=== PATIENT | female | born 1960 | race Caucasian/White ===

== ENCOUNTER 2016-10-30 17:48 | Emergency (ER) | payer OTHER, SELFPAY ==
[~2016-10-30 17:48] MED LIST: Sodium Chloride 0.9% 100 ML BAG ONE
--- NOTE | 2016-10-30 18:56 | RAD ---
CHEST ONE VIEW 10/30/16 HISTORY: Dyspnea. COMPARISON: Chest one view 11/24/15. FINDINGS: The lungs are clear. No pneumothorax or effusion. The lungs are hyperinflated. The cardiac silhouett e and mediastinal contours are normal. IMPRESSION: Lung hyperinflation suggestive of obstructive pulmonary disease. POS: [facility]
[2016-10-30] MEDS ORDERED: Phenergan/Codeine 10-6.25mg/5ml UDCUP ONE (19:05)
[2016-10-30] MEDS ORDERED: cefTRIAXone\\ROCEPHIN 1 GM VIAL ONE (19:05)
[2016-10-30] MEDS ORDERED: Ondansetron HCl/PF 4 MG/2 ML Vial ONE (19:07)
[2016-10-30] MEDS ORDERED: Dexamethasone 10 MG/ML VIAL ONE (19:07)
[2016-10-30] MEDS ORDERED: Azithromycin 250 MG TAB ONE (19:07)
[2016-10-30 19:40] LABS: #Lymphocytes 0.4 thou/uL (1.20-3.40); #Monocytes 0.2 thou/uL (0.11-0.59); #Neutrophils 9.2 thou/uL (1.40-6.50); %Basophils 0.5 % (0.0-1.0); %Monocytes 1.8 % (0.0-10.0); %Neutrophils 93.7 % (42.0-75.0); Hemoglobin 15.6 g/dL (12.0-16.0); Mean Corpuscular HGB CONC 32.4 g/dL (32.0-36.0); Mean Corpuscular Volume 95.8 fl (81.0-99.0); Mean Platelet Volume 6.8 fL (7.4-10.4); Platelet Count 331 thou/uL (130-400); RBC Distribution Width 12.3 % (11.5-14.5); Red Blood Cell (RBC) Count 5.01 mill/uL (4.20-5.40); White Blood Cell (WBC) Count 9.8 thou/uL (4.8-10.8)
[2016-10-30 19:54] LABS: ALT (SGPT) 29 U/L (0-55); AST (SGOT) 23 U/L (5-34); Albumin 4.4 g/dL (3.5-5.0); Alkaline Phosphatase 85 U/L (40-150); Anion Gap 16 mmol/L (10-20); BUN (Urea Nitrogen) 12 mg/dL (9.8-20.1); Bilirubin, Total 0.5 mg/dL (0.2-1.2); Calc. Creatinine Clearance 0 mL/min (70-130); Calcium 10.1 mg/dL (7.8-10.44); Carbon Dioxide 27 mmol/L (22-29); Chloride 101 mmol/L (98-107); Estimated GFR-MDRD 58; Glucose 137 mg/dL (70-105); Potassium 4.7 mmol/L (3.5-5.1); Protein, Total 7.4 g/dL (6.0-8.3); Sodium 139 mmol/L (136-145)
[2016-10-30 20:00] LABS: Bilirubin Negative (Negative); Blood, Urine Trace (Negative); Clarity Clear (Clear); Glucose, Urine (Dipstick) Negative (Negative); Leukocyte Negative (Negative); Nitrite Negative (Negative); Protein, Urine (Dipstick) Negative (Neg-Trace); Urobilinogen 0.2 mg/dL (0.2-1.0)
[2016-10-30 20:05] LABS: Bacteria/HPF None Seen HPF (None Seen); RBC/HPF 0-3 HPF (0-3); Squamous Epithelial 0-3 HPF (0-3); WBC/HPF 0-3 HPF (0-3)
[2016-10-30] MEDS ORDERED: methylPREDNISolone Sod Succ/PF 125 MG/2 ML VIAL ONE (20:33)
[2016-10-30 23:33] LABS: PTT 46.2 SEC (22.9-36.1); Prothrombin Time 13.9 SEC (12.0-14.7)
[2016-10-30 23:50] LABS: CKMB 3.5 ng/mL (0-6.6); Troponin I Less than 0.010 ng/mL (< 0.028)
== END 2016-10-31 02:30 | disposition short-term general hospital (02) ==
LOC: MADERS 17:48
DX: J44.1 Chronic obstructive pulmonary disease with (acute) exacerbation (principal); I10 Essential (primary) hypertension; Z72.0 Tobacco use
CPT/HCPCS: 36415; 71010; 80053; 81003; 81015; 82553; 83880; 84484; 85025; 85610; 85730; 87040; 87430; 93005; 96365; 96375; J0696; J1100; J2405; J2930; J7050; J7620

== ENCOUNTER 2017-04-29 10:03 | Emergency (ER) | payer OTHER, SELFPAY ==
[~2017-04-29 10:03] MED LIST changes: +Sodium Chloride 0.9% 1,000 ML BAG ONE
[2017-04-29 10:40] LABS: Hemoglobin 14.3 g/dL (12.0-16.0); Mean Corpuscular HGB CONC 33.5 g/dL (32.0-36.0); Mean Corpuscular Hemoglobin 31.7 pg (27.0-31.0); Mean Corpuscular Volume 94.6 fl (81.0-99.0); Mean Platelet Volume 6.5 fL (7.4-10.4); Platelet Count 277 thou/uL (130-400); RBC Distribution Width 12.8 % (11.5-14.5); Red Blood Cell (RBC) Count 4.51 mill/uL (4.20-5.40); White Blood Cell (WBC) Count 27.6 thou/uL (4.8-10.8)
[2017-04-29 10:43] LABS: INR-International Normal Ratio 1.2; PTT 33.3 SEC (22.9-36.1); Prothrombin Time 14.9 SEC (12.0-14.7)
[2017-04-29 10:52] LABS: ALT (SGPT) 20 U/L (8-55); AST (SGOT) 10 U/L (5-34); Albumin 3.8 g/dL (3.5-5.0); Alkaline Phosphatase 100 U/L (40-150); Anion Gap 16 mmol/L (10-20); BUN (Urea Nitrogen) 16 mg/dL (9.8-20.1); Bilirubin, Total 0.3 mg/dL (0.2-1.2); CK (CPK) 56 U/L (29-168); Calc. Creatinine Clearance 0 mL/min (70-130); Calcium 10.1 mg/dL (7.8-10.44); Carbon Dioxide 25 mmol/L (22-29); Chloride 99 mmol/L (98-107); Estimated GFR-MDRD 53; Globulin 3.8 g/dL (2.4-3.5); Glucose 282 mg/dL (70-105); Manual Diff?? YES; Potassium 4.2 mmol/L (3.5-5.1); Protein, Total 7.6 g/dL (6.0-8.3); Sodium 136 mmol/L (136-145)
[2017-04-29 10:53] LABS: Anisocytosis SLIGHT = 6-15 cells (100X) (0-5/hpf); Band 3 % (5-11); Lymphocytes 5 % (21-51); MDiff Complete? YES; Monocytes 4 % (0-10); Neutrophil 88 % (42-75); PLT Morphology Comment Appears Adequate
[2017-04-29 10:56] LABS: CKMB 2.6 ng/mL (0-6.6); Troponin I 0.013 ng/mL (< 0.028)
[2017-04-29] MEDS ORDERED: AMOXicillin 250 MG CAP ONE (11:02)
[2017-04-29] MEDS ORDERED: Dexamethasone 10 MG/ML VIAL ONE (11:02)
[2017-04-29] MEDS ORDERED: Ketorolac Tromethamine 30 MG/ML VIAL ONE (11:02)
[2017-04-29] MEDS ORDERED: Ondansetron HCl/PF 4 MG/2 ML Vial ONE (11:02)
[2017-04-29] MEDS ORDERED: methylPREDNISolone Sod Succ/PF 125 MG/2 ML VIAL ONE (11:03)
[2017-04-29] MEDS ORDERED: cefTRIAXone\\ROCEPHIN 1 GM VIAL ONE (11:03)
--- NOTE | 2017-04-29 11:03 | RAD ---
PA AND LATERAL VIEWS OF THE CHEST: History: Dyspnea. FINDINGS: Comparison is made with exam dated 01-21-15. The heart size is borderline. The lungs are well expanded with patchy airspace disease in the left m idlung. No pneumothoraces or pleural effusions are seen. IMPRESSION: Left sided pneumonia. POS: [facility]
[2017-04-29] MEDS ORDERED: Azithromycin 250 MG TAB ONE (11:54)
== END 2017-04-29 12:00 | disposition short-term general hospital (02) ==
LOC: MADERS 10:03
DX: J18.9 Pneumonia, unspecified organism (principal); J44.9 Chronic obstructive pulmonary disease, unspecified; E11.65 Type 2 diabetes mellitus with hyperglycemia; I10 Essential (primary) hypertension; F32.9 Major depressive disorder, single episode, unspecified; Z87.891 Personal history of nicotine dependence; Z79.899 Other long term (current) drug therapy
CPT/HCPCS: 36415; 71020; 80053; 82553; 83605; 83735; 83880; 84484; 85025; 85610; 85730; 87040; 87081; 87430; 93005; 94640; 94760; 96365; 96375; J0696; J1100; J1885; J2405; J2930; J7050; J7620

== ENCOUNTER 2017-05-28 11:11 | Emergency (ER) | payer SELFPAY ==
[~2017-05-28 11:11] MED LIST changes: +Iopamidol 370 76% 125 ML VIAL FS ONE
[2017-05-28 11:45] LABS: #Basophils 0.1 thou/uL (0.0-0.2); #Lymphocytes 0.6 thou/uL (1.20-3.40); #Monocytes 1.2 thou/uL (0.11-0.59); #Neutrophils 23.7 thou/uL (1.40-6.50); %Basophils 0.3 % (0.0-1.0); %Lymphocytes 2.2 % (21.0-51.0); %Monocytes 4.8 % (0.0-10.0); %Neutrophils 92.7 % (42.0-75.0); Hemoglobin 13.8 g/dL (12.0-16.0); Mean Corpuscular HGB CONC 33.1 g/dL (32.0-36.0); Mean Corpuscular Hemoglobin 31.2 pg (27.0-31.0); Mean Corpuscular Volume 94.5 fl (81.0-99.0); Mean Platelet Volume 6.5 fL (7.4-10.4); Platelet Count 243 thou/uL (130-400); RBC Distribution Width 13.3 % (11.5-14.5); White Blood Cell (WBC) Count 25.6 thou/uL (4.8-10.8)
[2017-05-28 11:59] LABS: ALT (SGPT) 38 U/L (8-55); AST (SGOT) 12 U/L (5-34); Albumin 3.9 g/dL (3.5-5.0); Alkaline Phosphatase 70 U/L (40-150); Anion Gap 18 mmol/L (10-20); BUN (Urea Nitrogen) 15 mg/dL (9.8-20.1); Bilirubin, Total 0.7 mg/dL (0.2-1.2); Calc. Creatinine Clearance 0 mL/min (70-130); Calcium 9.7 mg/dL (7.8-10.44); Carbon Dioxide 24 mmol/L (22-29); Chloride 92 mmol/L (98-107); Estimated GFR-MDRD 57; Glucose 384 mg/dL (70-105); Potassium 4.8 mmol/L (3.5-5.1); Protein, Total 6.9 g/dL (6.0-8.3); Sodium 129 mmol/L (136-145)
[2017-05-28 12:00] LABS: Troponin I 0.016 ng/mL (< 0.028)
[2017-05-28] MEDS ORDERED: Ondansetron HCl/PF 4 MG/2 ML Vial ONE (12:01)
--- NOTE | 2017-05-28 12:10 | RAD ---
TWO VIEWS CHEST 05/28/2017 PROVIDED CLINICAL HISTORY: Dyspnea. COMPARISON: 04/29/2017 FINDINGS: The cardiac and mediastinal silhouette is unchanged in appearance. Chronic obstructive changes are redemonstrated. There has been an interval decrease in the previously described left hemithoracic a ir space disease. There is persistent parenchymal opacity seen on the lateral view, overlying the m id thoracic spine. The lungs appear otherwise clear. There is no pleural fluid or pneumothorax mekhi arent. IMPRESSION: Improving but persistent air space disease involving the left lung. Continued radiographic followup is recommended to evaluate for complete resolution. POS: [facility]
[2017-05-28] MEDS ORDERED: Insulin Regular 300 UNITS/3 ML VIAL ONE (12:29)
--- NOTE | 2017-05-28 14:06 | CT ---
CT PULMONARY ANGIOGRAM WITH IV CONTRAST AND 3D MIP RECONSTRUCTIONS: PROVIDED CLINICAL HISTORY: Dyspnea. FINDINGS: Comparison is made with the study dated 10/11/13 as well as chest radiograph of 04/29/17. There is no evidence for central or segmental pulmonary embolus. The heart, pericardium, and great vessels appear unremarkable with the exception of vascular calcification including coronary calcium. There is no evidence for thoracic lymph node enlargement. There is consolidation involving the superior segment of the left lower lobe. This appears decrease d as compared to chest radiograph of 04/29/17 and likely reflects resolving pneumonia. The lungs are otherwise free of significant opacity. Emphysematous changes are seen involving the lung apices. The airway appears patent and of normal caliber. No pleural fluid or pneumothorax is evident. Ther e is stranding of the subcutaneous adipose layer in the left axillary region. Prominent by number b ut not enlarged lymph nodes are seen in the left axilla. A glenohumeral joint effusion is partially visualized on the left. The osseous structures demonstrate no concerning osteoblastic or osteolyti c lesions. Visualized portions of the upper abdomen appear unremarkable with the exception of fatty infiltration of the liver. A small hiatal hernia is seen. IMPRESSION: 1. No evidence for central or segmental pulmonary embolus. 2. Consolidation involving the superior segment of the left lower lobe likely reflecting resolving pneumonia given the interval decrease since 04/29/17 chest radiograph. Radiographic followup after c ompletion of treatment is recommended to evaluate for complete resolution. 3. Stranding of the subcutaneous adipose tissue in the left axilla presumably reflects cellulitis. No evidence for a focal soft tissue fluid collection to suggest abscess. 4. Fatty infiltration of the liver. 5. Coronary calcium. 6. Emphysema. POS: [facility]
== END 2017-05-28 13:30 | disposition short-term general hospital (02) ==
LOC: MADERS 11:11
DX: J44.1 Chronic obstructive pulmonary disease with (acute) exacerbation (principal); L02.412 Cutaneous abscess of left axilla; J18.9 Pneumonia, unspecified organism; I10 Essential (primary) hypertension; M19.90 Unspecified osteoarthritis, unspecified site; E78.5 Hyperlipidemia, unspecified; Z87.891 Personal history of nicotine dependence
CPT/HCPCS: 36416; 71020; 71275; 80053; 82553; 83605; 83880; 84484; 85025; 85379; 87040; 93005; 96361; 96365; 96372; 96375; J1815; J1956; J2270; J2405; J7050

== ENCOUNTER 2017-08-28 12:48 | Emergency (ER) | payer SELFPAY, OTHER ==
[~2017-08-28 12:48] MED LIST changes: +Albuterol Sulfate 2.5 mg/3 ml Neb ONE; -Iopamidol 370 76% 125 ML VIAL FS ONE; -Sodium Chloride 0.9% 1,000 ML BAG ONE; -Sodium Chloride 0.9% 100 ML BAG ONE
[2017-08-28] MEDS ORDERED: methylPREDNISolone Sod Succ/PF 125 MG/2 ML VIAL ONE (13:06)
[2017-08-28] MEDS ORDERED: Albuterol Sulfate 1.25 MG/3 ML NEB ONE ×2 (13:48→13:51)
[2017-08-28] MEDS ORDERED: Ipratropium Bromide 2.5 ml Neb ONE (13:48)
--- NOTE | 2017-08-28 14:58 | RAD ---
CHEST 2 VIEWS: Date: 08/28/17 COMPARISON: 05/28/17. HISTORY: Dyspnea. FINDINGS: Normal cardiac silhouette. Pulmonary vessels and hilum are normal. Costophrenic angles are clear. Jyoti gs are hyperinflated. Patchy interstitial opacities may represent edema that is superimposed upon chr onic change. No consolidation with air bronchograms. No pneumothorax or osseous abnormalities. Cervic al fusion hardware is noted. IMPRESSION: Hyperinflation with chronic changes. Superimposed interstitial infiltrate or edema cannot be excluded . POS: [facility]
[2017-08-28 15:41] LABS: #Lymphocytes 0.5 thou/uL (1.20-3.40); #Monocytes 0.5 thou/uL (0.11-0.59); #Neutrophils 15.8 thou/uL (1.40-6.50); %Basophils 0.2 % (0.0-1.0); %Lymphocytes 2.8 % (21.0-51.0); %Monocytes 3.2 % (0.0-10.0); %Neutrophils 93.8 % (42.0-75.0); Hemoglobin 14.3 g/dL (12.0-16.0); Mean Corpuscular HGB CONC 33.1 g/dL (32.0-36.0); Mean Corpuscular Hemoglobin 31.7 pg (27.0-31.0); Mean Corpuscular Volume 95.8 fl (81.0-99.0); Mean Platelet Volume 7.3 fL (7.4-10.4); Platelet Count 267 thou/uL (130-400); RBC Distribution Width 13.1 % (11.5-14.5); White Blood Cell (WBC) Count 16.8 thou/uL (4.8-10.8)
[2017-08-28] MEDS ORDERED: Magnesium Sulfate 2 GM/NS 0.9% 50 ML BAG ONE (15:47)
[2017-08-28 15:57] LABS: ALT (SGPT) 76 U/L (8-55); AST (SGOT) 24 U/L (5-34); Albumin 3.8 g/dL (3.5-5.0); Alkaline Phosphatase 53 U/L (40-150); Anion Gap 18 mmol/L (10-20); BUN (Urea Nitrogen) 13 mg/dL (9.8-20.1); Bilirubin, Total 0.3 mg/dL (0.2-1.2); Calc. Creatinine Clearance 0 mL/min (70-130); Calcium 8.5 mg/dL (7.8-10.44); Carbon Dioxide 25 mmol/L (22-29); Chloride 99 mmol/L (98-107); Estimated GFR-MDRD 66; Globulin 2.4 g/dL (2.4-3.5); Glucose 312 mg/dL (70-105); Potassium 3.5 mmol/L (3.5-5.1); Protein, Total 6.2 g/dL (6.0-8.3); Sodium 138 mmol/L (136-145)
[2017-08-28 15:58] LABS: CKMB 2.5 ng/mL (0-6.6); Troponin I 0.034 ng/mL (< 0.028)
== END 2017-08-28 17:36 | disposition short-term general hospital (02) ==
LOC: MADERS 12:48
DX: J44.1 Chronic obstructive pulmonary disease with (acute) exacerbation (principal); J96.90 Respiratory failure, unspecified, unspecified whether with hypoxia or hypercapnia; I10 Essential (primary) hypertension; E78.5 Hyperlipidemia, unspecified; M19.90 Unspecified osteoarthritis, unspecified site; F32.9 Major depressive disorder, single episode, unspecified; F17.210 Nicotine dependence, cigarettes, uncomplicated; Z79.899 Other long term (current) drug therapy
CPT/HCPCS: 36415; 71020; 80053; 82553; 83880; 84484; 85025; 87040; 87149; 93005; 94640; 94644; 94660; 96365; 96375; J1956; J2930; J3475; J7611; J7620; J7644

== ENCOUNTER 2018-05-13 10:42 | Emergency (ER) | payer SELFPAY ==
[2018-05-13] MEDS ORDERED: Furosemide 40 MG/4 ML VIAL ONE (11:18)
[2018-05-13] MEDS ORDERED: methylPREDNISolone Sod Succ/PF 125 MG/2 ML VIAL ONE (11:18)
[2018-05-13 11:23] LABS: Bilirubin Negative (Negative); Blood, Urine Trace (Negative); Glucose, Urine (Dipstick) 500 mg/dL (Negative); Leukocyte Negative (Negative); Nitrite Positive (Negative); Protein, Urine (Dipstick) 100 mg/dL (Neg-Trace)
[2018-05-13 11:24] LABS: Clarity Hazy (Clear)
[2018-05-13 11:25] LABS: Bacteria/HPF Rare-Few HPF (None Seen); RBC/HPF 0-3 HPF (0-3); WBC/HPF 0-3 HPF (0-3)
--- NOTE | 2018-05-13 11:27 | RAD ---
CHEST 1 VIEW: Date: 05/13/18 HISTORY: Dyspnea. COPD. COMPARISON: Chest radiograph dated 09/06/17. FINDINGS: Mild increased chronic interstitial markings. Pulmonary arteries are dilated. No pneumothorax or larg e effusion. Likely some interposition of bowel within the right hemidiaphragm and the liver, and less likely free air. IMPRESSION: Obstructive pulmonary artery disease and pulmonary arterial hypertension. POS: [facility]
[2018-05-13 11:49] LABS: Anion Gap 20 mmol/L (10-20); BUN (Urea Nitrogen) 29 mg/dL (9.8-20.1); Calc. Creatinine Clearance 0 mL/min (70-130); Calcium 10.1 mg/dL (7.8-10.44); Carbon Dioxide 22 mmol/L (22-29); Chloride 91 mmol/L (98-107); Estimated GFR-MDRD 41; Glucose 398 mg/dL (70-105); Potassium 4.5 mmol/L (3.5-5.1); Sodium 128 mmol/L (136-145)
[2018-05-13 11:50] LABS: Band 4 % (5-11); Hemoglobin 12.7 g/dL (12.0-16.0); Lymphocytes 2 % (21-51); MDiff Complete? YES; Mean Corpuscular Hemoglobin 29.9 pg (27.0-31.0); Mean Corpuscular Volume 90.4 fL (78.0-98.0); Mean Platelet Volume 6.4 fL (7.4-10.4); Monocytes 2 % (0-10); Neutrophil 92 % (42-75); PLT Morphology Comment Appears Adequate; Platelet Count 270 thou/uL (130-400); RBC Distribution Width 12.4 % (11.5-14.5); Red Blood Cell (RBC) Count 4.26 mill/uL (4.20-5.40); White Blood Cell (WBC) Count 20.6 thou/uL (4.8-10.8)
[2018-05-13 11:55] LABS: CKMB 3.2 ng/mL (0-6.6); Troponin I Less than 0.010 ng/mL (< 0.028)
[2018-05-13] MEDS ORDERED: HYDROcodone/Acetaminophen 10/325 mg Tablet ONE (12:13)
== END 2018-05-13 12:20 | disposition home or self-care (01) ==
LOC: MADERS 10:42
DX: J44.1 Chronic obstructive pulmonary disease with (acute) exacerbation (principal); N39.0 Urinary tract infection, site not specified; Z79.899 Other long term (current) drug therapy
CPT/HCPCS: 71045; 80048; 81003; 81015; 82553; 83880; 84484; 85025; 93005; 94640; 94760; 96374; 96375; J1940; J2930; J7620

== ENCOUNTER 2018-05-15 20:26 | Emergency (ER) | payer SELFPAY ==
[~2018-05-15 20:26] MED LIST changes: -Albuterol Sulfate 2.5 mg/3 ml Neb ONE; +Sodium Chloride 0.9% 500 ML BAG ONE
--- NOTE | 2018-05-15 21:10 | RAD ---
PORTABLE CHEST: HISTORY: Dyspnea. COMPARISON: 05/13/2018 FINDINGS: The lungs remain clear of infiltrate. Vascular markings are within the normal range. The heart and mediastinum are unremarkable. IMPRESSION: No acute finding. No interval change. POS: [facility]
[2018-05-15 21:11] LABS: INR-International Normal Ratio 1.1; PTT 28.8 SEC (22.9-36.1); Prothrombin Time 14.6 SEC (12.0-14.7)
[2018-05-15 21:18] LABS: #Basophils 0.2 thou/uL (0.0-0.2); #Lymphocytes 0.4 thou/uL (1.20-3.40); #Monocytes 0.6 thou/uL (0.11-0.59); #Neutrophils 22.3 thou/uL (1.40-6.50); %Lymphocytes 1.6 % (21.0-51.0); %Monocytes 2.3 % (0.0-10.0); Hemoglobin 13.4 g/dL (12.0-16.0); Mean Corpuscular HGB CONC 33.7 g/dL (32.0-36.0); Mean Corpuscular Hemoglobin 31.1 pg (27.0-31.0); Mean Corpuscular Volume 92.3 fL (78.0-98.0); Mean Platelet Volume 6.5 fL (7.4-10.4); Platelet Count 246 thou/uL (130-400); RBC Distribution Width 12.6 % (11.5-14.5); White Blood Cell (WBC) Count 23.4 thou/uL (4.8-10.8)
[2018-05-15 21:23] LABS: ALT (SGPT) 35 U/L (8-55); AST (SGOT) 15 U/L (5-34); Albumin 3.4 g/dL (3.5-5.0); Alkaline Phosphatase 112 U/L (40-150); Anion Gap 20 mmol/L (10-20); BUN (Urea Nitrogen) 30 mg/dL (9.8-20.1); Bilirubin, Total 0.5 mg/dL (0.2-1.2); Calc. Creatinine Clearance 0 mL/min (70-130); Calcium 9.8 mg/dL (7.8-10.44); Carbon Dioxide 24 mmol/L (22-29); Chloride 88 mmol/L (98-107); Estimated GFR-MDRD 41; Globulin 3.5 g/dL (2.4-3.5); Glucose 335 mg/dL (70-105); Magnesium 1.6 mg/dL (1.6-2.6); Potassium 4.4 mmol/L (3.5-5.1); Protein, Total 6.9 g/dL (6.0-8.3); Sodium 128 mmol/L (136-145)
[2018-05-15 21:30] LABS: CKMB 1.5 ng/mL (0-6.6); Troponin I Less than 0.010 ng/mL (< 0.028)
[2018-05-15] MEDS ORDERED: Piperacillin/Tazobactam 3.375 GM VIAL ONE (22:04)
[2018-05-15] MEDS ORDERED: Morphine 4 MG/ML VIAL ONE (22:04)
[2018-05-15] MEDS ORDERED: Promethazine HCl 25 MG/ML VIAL ONE (22:04)
[2018-05-15] MEDS ORDERED: metroNIDAZOLE 500 MG/100 ML BAG ONE (22:04)
--- NOTE | 2018-05-15 22:04 | CT ---
CT ABDOMEN AND PELVIS WITH IV CONTRAST: INDICATIONS: Abdominal pain. COMPARISON: CT abdomen and pelvis from 2009. TECHNIQUE: Multiple axial tomograms obtained through the abdomen and pelvis with IV enhancement. FINDINGS: The lung bases are clear. The liver, spleen, and pancreas appear unremarkable. The adrenal glands a ppear normal. The kidneys are unremarkable. Small bowel loops are of normal caliber. There is an i nflammatory process in the posterior lower abdomen and pelvis, which appears to derive from the sigmo id colon. There is diverticulosis at the sigmoid colon, and findings probably represent complication s of diverticulitis. There is extensive extraluminal gas in the pelvis and mid abdomen, in the retro peritoneum. There are also numerous tiny pockets of free intraperitoneal gas seen in the upper abdom en, surrounding the liver and under the diaphragms. There is no significant fluid or abscess collection identified within this inflammatory process. The inflammation extends from the lower pelvis into the retroperitoneal space, around the lower aorta. The uterus and adnexa appear unremarkable. The aorta shows atherosclerotic calcification. There is an anterior umbilical hernia, which was present on the prior exam and is slightly larger today. Mese nteric fat herniates through this defect. IMPRESSION: 1. Inflammatory process in the pelvis and mid abdomen, which is primarily retroperitoneal, with nume shira pockets of extraluminal gas. No significant fluid or abscess collection seen. 2. There are also numerous tiny pockets of intraperitoneal gas in the upper abdomen. Findings related to Dr. Almendarez by phone at the time of dictation. CODE CR POS: [facility]
== END 2018-05-15 22:20 | disposition short-term general hospital (02) ==
LOC: MADERS 20:26
DX: K57.80 Diverticulitis of intestine, part unspecified, with perforation and abscess without bleeding (principal); I25.10 Atherosclerotic heart disease of native coronary artery without angina pectoris; I50.9 Heart failure, unspecified; J44.9 Chronic obstructive pulmonary disease, unspecified; I73.9 Peripheral vascular disease, unspecified; Z79.899 Other long term (current) drug therapy
CPT/HCPCS: 36415; 71045; 74176; 80053; 82553; 83605; 83735; 83880; 84484; 85025; 85610; 85730; 87040; 93005; 94760; 96374; 96375; J2270; J2543; J2550; J7050; J7620

== ENCOUNTER 2018-11-25 12:20 | Emergency (ER) | payer SELFPAY ==
[~2018-11-25 12:20] MED LIST changes: +Sodium Chloride 0.9% 100 ML BAG ONE; -Sodium Chloride 0.9% 500 ML BAG ONE
[2018-11-25] MEDS ORDERED: Sodium Chloride 0.9% 100 ML BAG ONE (12:45)
[2018-11-25] MEDS ORDERED: Iopamidol 370 76% 125 ML VIAL FS ONE (12:45)
--- NOTE | 2018-11-25 13:15 | RAD ---
CHEST 2 VIEWS: HISTORY: Dyspnea. COMPARISON: 05/30/2018. FINDINGS: Heart size is within normal limits. No confluent pneumonia, overt edema, or pleural effusion. Old g ranulomatous disease. Anterior cervical fusion changes of the lower cervical spine. Vertical height loss of one of the lower thoracic vertebral bodies which does not appear acute. IMPRESSION: Stable chronic lung changes. No pneumonia, edema, or other acute process. POS: [facility]
[2018-11-25] MEDS ORDERED: methylPREDNISolone Sod Succ/PF 125 MG/2 ML VIAL ONE (13:22)
[2018-11-25] MEDS ORDERED: Oseltamivir 75 MG CAP ONE (13:22)
[2018-11-25] MEDS ORDERED: Sterile Water 10 ML ONE (13:24)
[2018-11-25 13:33] LABS: ALT (SGPT) 7 U/L (8-55); AST (SGOT) 39 U/L (5-34); Albumin 2.9 g/dL (3.5-5.0); Alkaline Phosphatase 169 U/L (40-150); Anion Gap 14 mmol/L (10-20); BUN (Urea Nitrogen) 6 mg/dL (9.8-20.1); Bilirubin, Total 0.5 mg/dL (0.2-1.2); Calc. Creatinine Clearance 0 mL/min (70-130); Calcium 8.6 mg/dL (7.8-10.44); Carbon Dioxide 26 mmol/L (22-29); Chloride 99 mmol/L (98-107); Estimated GFR-MDRD 77; Globulin 4.5 g/dL (2.4-3.5); Glucose 126 mg/dL (70-105); Potassium 3.2 mmol/L (3.5-5.1); Protein, Total 7.4 g/dL (6.0-8.3); Sodium 136 mmol/L (136-145)
[2018-11-25 13:47] LABS: Band 5 % (5-11); Lymphocytes 27 % (21-51); MDiff Complete? YES; Mean Corpuscular HGB CONC 31.6 g/dL (32.0-36.0); Mean Corpuscular Volume 94.9 fL (78.0-98.0); Mean Platelet Volume 6.7 fL (7.4-10.4); Monocytes 7 % (0-10); Neutrophil 61 % (42-75); Platelet Count 227 thou/uL (130-400); Platelet Morphology Comment Appears Adequate; Poikilocytosis SLIGHT = 6-15 cells (100X) (0-5/hpf); RBC Distribution Width 15.6 % (11.5-14.5); Red Blood Cell (RBC) Count 4.33 mill/uL (4.20-5.40); White Blood Cell (WBC) Count 7.5 thou/uL (4.8-10.8)
[2018-11-25] MEDS ORDERED: Aspirin Chewable 81 MG TAB ONE (14:04)
[2018-11-25] MEDS ORDERED: cefTRIAXone\\ROCEPHIN 1 GM VIAL ONE (14:04)
[2018-11-25] MEDS ORDERED: Sodium Chloride 0.9% 500 ML ONE (14:04)
--- NOTE | 2018-11-25 14:59 | CT ---
CTA THORAX WITH CONTRAST: (Computed Tomographic Angiography, chest(noncoronary) with contrast material, and image postprocessin g) (PE protocol) DATE: 11/25/18 HISTORY: [id number] female with dyspnea. TECHNIQUE: IV injection of iodinated contrast. Scan acquisition timing attempted to coincide with iodinated contrast bolus reaching maximal density in pulmonary arteries. 3D MIP reconstructions. FINDINGS: Diffuse centrilobular emphysematous changes, especially in upper lobes. At far anterior aspect of rig ht middle lobe, abutting the undersurface of the right minor fissure, there is a 0.6 x 0.4 x 0.5 cm n oncalcified pulmonary nodule. It is slightly larger than it was on the previous study of 08/29/17. Lo cation and shape suggest that this is a benign intrapulmonary lymph node. Breathing motion artifact d egrades the images of bilateral lower lobes. Thickening along the superior aspect of the left major f issure is again noted. Compression fracture of T10 vertebral body and T11 vertebral body with loss of height, especially of T10, new since the previous CTA of 08/29/17. Minimal bony retropulsion of both technically makes these minimal burst fractures. Trachea and bilateral mainstem bronchi are patent a nd clear. No consolidation, pleural effusion, pneumothorax, or cardiomegaly. No thoracic aortic aneur ysm or dissection. No pulmonary thromboembolism. There is soft tissue density material in the bilater al danica, around the hilar major blood vessels and bronchi, new since the prior CTA. Also new are mult iple mildly enlarged mediastinal lymph nodes. Diffusely low hepatic attenuation represents fatty live r. Tiny hypodensity in right kidney, too small to characterize. No adrenal mass. No splenomegaly. IMPRESSION: 1. No pulmonary thromboembolism. 2. Moderate centrilobular emphysema. 3. Nonspecific mediastinal and bilateral hilar lymphadenopathy. 4. Hepatic steatosis and hepatomegaly. 5. Compression-burst fractures of T10 and T11 vertebrae of indeterminate age. These occurred sometim e after the previous CT angiogram of the chest of 08/29/17. They could be subacute. jn[] POS: [facility]
[2018-11-25 15:58] LABS: Bilirubin Negative (Negative); Blood, Urine Trace (Negative); Clarity Clear (Clear); Glucose, Urine (Dipstick) Negative (Negative); Leukocyte Negative (Negative); Nitrite Negative (Negative); Protein, Urine (Dipstick) Negative (Neg-Trace); Urobilinogen 0.2 mg/dL (0.2-1.0); pH, Urine 5.5 (5.0-9.0)
[2018-11-25 16:05] LABS: Specific Gravity, Urine 1.025 (1.002-1.036)
[2018-11-25 16:15] LABS: Bacteria/HPF Rare-Few HPF (None Seen); RBC/HPF 0-3 HPF (0-3); Squamous Epithelial 0-3 HPF (0-3); WBC/HPF None Seen HPF (0-3)
== END 2018-11-25 15:40 | disposition short-term general hospital (02) ==
LOC: MADERS 12:20
DX: J44.1 Chronic obstructive pulmonary disease with (acute) exacerbation (principal); R94.31 Abnormal electrocardiogram [ECG] [EKG]; I25.10 Atherosclerotic heart disease of native coronary artery without angina pectoris; Z87.891 Personal history of nicotine dependence; F32.9 Major depressive disorder, single episode, unspecified; Z79.899 Other long term (current) drug therapy; Z79.51 Long term (current) use of inhaled steroids
CPT/HCPCS: 36415; 71046; 71275; 80053; 81003; 81015; 83605; 83880; 84484; 85025; 85379; 87040; 87804; 93005; 94760; 96365; 96375; A4216; J0696; J2930; J7050; J7620; Q9967

== ENCOUNTER 2020-06-27 14:58 | Emergency (ER) | payer MEDICARE ==
[~2020-06-27 14:58] MED LIST changes: +Sodium Chloride 0.9% 1,000 ML BAG ONE; -Sodium Chloride 0.9% 100 ML BAG ONE
[2020-06-27 15:59] LABS: #Lymphocytes 0.9 thou/uL (1.20-3.40); #Monocytes 0.3 thou/uL (0.11-0.59); #Neutrophils 13.7 thou/uL (1.40-6.50); %Basophils 0.3 % (0.0-1.0); %Lymphocytes 6.2 % (21.0-51.0); %Neutrophils 91.5 % (42.0-75.0); Hemoglobin 12.1 g/dL (12.0-16.0); Mean Corpuscular HGB CONC 31.4 g/dL (32.0-36.0); Mean Corpuscular Hemoglobin 28.5 pg (27.0-31.0); Mean Corpuscular Volume 90.9 fL (78.0-98.0); Mean Platelet Volume 6.5 fL (7.4-10.4); Platelet Count 302 thou/uL (130-400); RBC Distribution Width 12.4 % (11.5-14.5); Red Blood Cell (RBC) Count 4.24 mill/uL (4.20-5.40)
[2020-06-27 16:19] LABS: Bicarbonate (HCO3v) 24.9 mmol/L (22.0-28.0); CO2 Tension (PvCO2) 60.8 mmHg (40.0-50.0); Calcium, Ionized 1.25 mmol/L (1.15-1.33); Chloride 111 mmol/L (98-107); Hemoglobin - Calc 14.6 g/dL (12.0-16.0); Potassium 4.6 mmol/L (3.5-5.1); Sodium 141 mmol/L (138-145); T. Carbon Dioxide 26.8 mmol/L (22.0-28.0); vO2 Saturation-calc 89.6 % (60.0-85.0)
[2020-06-27] MEDS ORDERED: Sodium Chloride 0.9% 100 ML ONE (16:29)
[2020-06-27] MEDS ORDERED: cefTRIAXone\\ROCEPHIN 2 GM VIAL ONE (16:29)
[2020-06-27] MEDS ORDERED: methylPREDNISolone Sod Succ/PF 125 MG/2 ML VIAL ONE (16:29)
--- NOTE | 2020-06-27 16:32 | RAD ---
PORTABLE CHEST 1 VIEW: Date: 06/27/2020 Time: 1613 hours HISTORY: Dyspnea. COMPARISON: 11/25/2018. FINDINGS: The heart size is normal. The lungs are well expanded without lobar consolidation, pneumothoraces, fr ank pulmonary edema, or pleural effusions. IMPRESSION: No acute process. POS: [facility]
[2020-06-27 16:39] LABS: ALT (SGPT) 28 U/L (8-55); AST (SGOT) 18 U/L (5-34); Albumin 3.9 g/dL (3.5-5.0); Alkaline Phosphatase 50 U/L (40-110); Anion Gap 17 mmol/L (10-20); BUN (Urea Nitrogen) 18 mg/dL (9.8-20.1); Bilirubin, Total 0.4 mg/dL (0.2-1.2); CK (CPK) 43 U/L (29-168); Calc. Creatinine Clearance 0 mL/min (70-130); Calcium 8.9 mg/dL (7.8-10.44); Carbon Dioxide 22 mmol/L (22-29); Chloride 106 mmol/L (98-107); Estimated GFR-MDRD 50; Globulin 3.2 g/dL (2.4-3.5); Glucose 217 mg/dL (70-105); Potassium 4.5 mmol/L (3.5-5.1); Protein, Total 7.1 g/dL (6.0-8.3); Sodium 140 mmol/L (136-145)
[2020-06-27] MEDS ORDERED: Azithromycin 500 MG VIAL ONE (17:16)
[2020-06-27] MEDS ORDERED: Sodium Chloride 0.9% 250 ML 250 ML ONE (17:16)
== END 2020-06-27 18:19 | disposition short-term general hospital (02) ==
LOC: MADERS 14:58
DX: J44.1 Chronic obstructive pulmonary disease with (acute) exacerbation (principal); I25.10 Atherosclerotic heart disease of native coronary artery without angina pectoris; I50.9 Heart failure, unspecified; F32.9 Major depressive disorder, single episode, unspecified; Z79.84 Long term (current) use of oral hypoglycemic drugs; Z87.891 Personal history of nicotine dependence; Z79.899 Other long term (current) drug therapy
CPT/HCPCS: 36415; 71045; 80053; 82330; 82550; 82803; 83605; 83880; 84484; 85025; 87040; 93005; 94760; 96365; 96367; 96375; J0456; J0696; J2930; J3490; J7050; J7620

== ENCOUNTER 2020-07-25 13:03 | Emergency (ER) | payer MEDICARE ==
[~2020-07-25 13:03] MED LIST changes: +Iopamidol 370 76% 125 ML VIAL FS ONE
[2020-07-25 13:46] LABS: #Lymphocytes 0.9 thou/uL (1.20-3.40); #Monocytes 0.5 thou/uL (0.11-0.59); %Basophils 0.1 % (0.0-1.0); %Lymphocytes 8.6 % (21.0-51.0); %Monocytes 4.8 % (0.0-10.0); %Neutrophils 86.4 % (42.0-75.0); Hemoglobin 12.7 g/dL (12.0-16.0); Mean Corpuscular HGB CONC 30.9 g/dL (32.0-36.0); Mean Corpuscular Hemoglobin 28.2 pg (27.0-31.0); Mean Corpuscular Volume 91.2 fL (78.0-98.0); Platelet Count 275 thou/uL (130-400); Red Blood Cell (RBC) Count 4.49 mill/uL (4.20-5.40); White Blood Cell (WBC) Count 10.4 thou/uL (4.8-10.8)
[2020-07-25] MEDS ORDERED: Cefepime 2 GM VIAL ONE (13:57)
[2020-07-25] MEDS ORDERED: Sodium Chloride 0.9% 100 ML ONE (13:57)
[2020-07-25] MEDS ORDERED: Sodium Chloride 0.9% 500 ML ONE (13:57)
[2020-07-25] MEDS ORDERED: methylPREDNISolone Sod Succ/PF 125 MG/2 ML VIAL ONE (14:04)
[2020-07-25 14:05] LABS: ALT (SGPT) 44 U/L (8-55); AST (SGOT) 29 U/L (5-34); Alkaline Phosphatase 60 U/L (40-110); Anion Gap 19 mmol/L (10-20); BUN (Urea Nitrogen) 23 mg/dL (9.8-20.1); Bilirubin, Total 0.4 mg/dL (0.2-1.2); Calc. Creatinine Clearance 0 mL/min (70-130); Calcium 8.8 mg/dL (7.8-10.44); Carbon Dioxide 24 mmol/L (22-29); Chloride 96 mmol/L (98-107); Estimated GFR-MDRD 43; Globulin 2.7 g/dL (2.4-3.5); Glucose 216 mg/dL (70-105); Potassium 4.7 mmol/L (3.5-5.1); Protein, Total 6.7 g/dL (6.0-8.3); Sodium 134 mmol/L (136-145)
[2020-07-25 14:22] LABS: Base Excess-Venous 0.3 mmol/L (-2.0 to 3.0); Bicarbonate (HCO3v) 26.1 mmol/L (22.0-28.0); Bilirubin Negative (Negative); Blood, Urine Negative (Negative); CO2 Tension (PvCO2) 45.3 mmHg (40.0-50.0); Clarity Clear (Clear); Glucose, Urine (Dipstick) Negative (Negative); Hemoglobin - Calc 13.9 g/dL (12.0-16.0); Ketone, Urine Negative (Negative); Leukocyte Negative (Negative); Nitrite Negative (Negative); Protein, Urine (Dipstick) Negative (Neg-Trace); Urobilinogen 0.2 mg/dL (Less than 2); pH, Urine 6.5 (5.0-9.0)
[2020-07-25 14:23] LABS: Calcium, Ionized 1.05 mmol/L (1.15-1.33); Chloride 100 mmol/L (98-107); Potassium 5.8 mmol/L (3.5-5.1); Sodium 132 mmol/L (138-145); T. Carbon Dioxide 27.5 mmol/L (22.0-28.0)
--- NOTE | 2020-07-25 15:02 | CT ---
EXAM: CT pulmonary angiogram with IV contrast and 3-D MIP reconstructions PROVIDED CLINICAL HISTORY: Shortness of breath COMPARISON: None FINDINGS: Evaluation is limited by patient respiratory motion. There is no evidence for central pulmonary embol us. The visualized systemic arterial system appears unremarkable other than vascular calcification including coronary calcium. No gross focal consolidation is evident. No pleural fluid or pneumothorax apparent. No evidence for thoracic lymph node enlargement. The airway appears patent and of normal caliber. The visualized portions of the upper abdomen demonstrate no acute findings. Fatty infiltration of the liver is demonstrated. The osseous structures demonstrate no concerning lytic or blastic lesions. Remote lower thoracic vert ebral body compression deformity. IMPRESSION: Limited study. No evidence for central pulmonary embolus.
== END 2020-07-25 16:00 | disposition short-term general hospital (02) ==
LOC: MADERS 13:03
DX: A41.9 Sepsis, unspecified organism (principal); J44.1 Chronic obstructive pulmonary disease with (acute) exacerbation; R73.9 Hyperglycemia, unspecified; I25.10 Atherosclerotic heart disease of native coronary artery without angina pectoris; I50.9 Heart failure, unspecified; I73.9 Peripheral vascular disease, unspecified; F32.9 Major depressive disorder, single episode, unspecified; Z87.891 Personal history of nicotine dependence; Z79.51 Long term (current) use of inhaled steroids; Z79.899 Other long term (current) drug therapy
CPT/HCPCS: 71275; 80053; 81003; 82330; 82803; 83605; 83880; 84484; 85025; 85379; 87040; 93005; 94760; 96365; 96367; 96375; J0692; J1956; J2930; J3490; J7030; J7050; J7620; Q9967

== ENCOUNTER 2020-08-09 16:22 | Inpatient (IN) | payer MEDICARE ==
[2020-08-09 19:39] VITALS: BMI 31.1
[2020-08-09] MEDS ORDERED: metFORMIN 500 MG TAB PO PRN (20:11)
[2020-08-09] MEDS ORDERED: HumaLOG 300 UNITS/3 ML VIAL SC PRN ×2 (20:11)
[2020-08-09] MEDS ORDERED: Benzonatate 100 MG CAP PO PRN (20:11)
[2020-08-09] MEDS ORDERED: methylPREDNISolone Sod Succ 40 MG VIAL IVP SCH (20:15)
[2020-08-09] MEDS ORDERED: Dextrose 50% Abboject 50 ML SYRINGE IVP PRN (21:00)
[2020-08-09] MEDS ORDERED: Mometasone/Formoterol 60 PUFF AER INH SCH (21:00)
[2020-08-09] MEDS ORDERED: Dextrose 5% in Water 1,000 ML IV PRN (21:00)
[2020-08-09] MEDS: ALPRAZolam 0.25 MG TAB PO SCH (21:31)
[2020-08-09] MEDS: Famotidine 20 MG TAB PO SCH (21:32)
[2020-08-09] MEDS: Enoxaparin Sodium 40 MG/0.4 ML SYRINGE SC SCH (21:32)
[2020-08-09] MEDS: Polyethylene Glycol 3350 17 GM Packet PO SCH (21:32)
[2020-08-09] MEDS: guaiFENesin ER 600 MG TAB PO SCH (21:32)
[2020-08-09] MEDS: Ipratropium/Albuterol Sulfate 4 GM AER IH PRN (21:54)
[2020-08-09] MEDS ORDERED: Non-Formulary Item 1 EACH (Albuterol Sulfate 200 PUFF Aer) INH SCH (23:00)
[2020-08-10] MEDS: Mometasone/Formoterol 200/5 60 PUFF INH SCH ×2 (08:48→20:19)
[2020-08-10] MEDS: Ascorbic Acid 500 mg Chewable Tablet PO SCH ×2 (08:49→08:50)
[2020-08-10] MEDS: Saccharomyces boulardii 250 MG CAP PO SCH (08:49)
[2020-08-10] MEDS: Famotidine 20 MG TAB PO SCH ×2 (08:49→20:21)
[2020-08-10] MEDS: guaiFENesin ER 600 MG TAB PO SCH ×2 (08:50→20:22)
[2020-08-10] MEDS: Metoprolol Tartrate 25 MG TAB PO SCH ×2 (08:50→20:21)
[2020-08-10] MEDS: Enoxaparin Sodium 40 MG/0.4 ML SYRINGE SC SCH ×2 (08:52→20:22)
[2020-08-10] MEDS: ALPRAZolam 0.25 MG TAB PO SCH ×2 (08:56→20:20)
[2020-08-10] MEDS ORDERED: FLU VACC QS2020-21(6MOS UP)/PF 60 MCG/0.5 ML SYRINGE IM ONE (09:00)
[2020-08-10] MEDS ORDERED: Metoprolol Tartrate 25 MG TAB PO SCH (09:00)
[2020-08-10] MEDS ORDERED: methylPREDNISolone Sod Succ 40 MG VIAL IVP SCH ×3 (09:00→21:00)
[2020-08-10] MEDS ORDERED: Prevnar 13-Val Conj/PF 0.5 ML SYRINGE IM ONE (09:00)
[2020-08-10] MEDS ORDERED: Lisinopril 5 MG TAB PO SCH (09:00)
[2020-08-10] MEDS: HumaLOG 300 UNITS/3 ML VIAL SC SCH ×3 (09:07→17:14)
[2020-08-10] MEDS: Furosemide 20 MG TAB PO PRN (09:07)
[2020-08-10] MEDS: Senokot 8.6 MG TAB PO PRN (09:14)
[2020-08-10] MEDS: Acetaminophen 325 MG TAB PO PRN ×2 (13:49→22:31)
[2020-08-10] MEDS: methylPREDNISolone Sod Succ 40 MG VIAL IVP SCH ×2 (14:20→20:23)
--- NOTE | 2020-08-10 18:09 | HP ---
ATTENDING PHYSICIAN: Dhara Arciniega, admitting for Dr. Radha Jose. PRIMARY CARE PHYSICIAN: Nurse practitioner, Miley Sales in [place]. REASON FOR ADMISSION: Severe deconditioning due to COVID-19 pneumonia and acute COPD exacerbation. HISTORY OF PRESENT ILLNESS: Ms. Amy Israel is a very pleasant 60-year-old female, who presented to the emergency room in [place] on July 25, 2020, due to worsening shortness of breath. The patient was initially hospitalized in [facility] from June 27 through July 08 due to acute on chronic hypoxic respiratory failure and COPD exacerbation. During hospitalization, the patient had a negative COVID-19 testing. She states that upon discharge, she continued to have shortness of breath with exacerbation, continued to have occasional cough. She denied any fevers, chills. She denied any sick contacts. She denies any body aches, but due to severe worsening shortness of breath, she presented back to the emergency room in [place] and she was noted to have oxygen saturations in the low 90s and patient was started on oxygen there. She also received IV cefepime and she had a CAT scan and angiogram of the chest which did not show any evidence of pulmonary emboli, and did not show no gross focal consolidation, pleural effusion or pneumothorax. The patient was subsequently admitted for COPD exacerbation. COVID-19 rapid test came back positive for COVID-19 virus. The patient in [facility] in [place], received remdesivir for 5 days. She was initially put on steroids and her inflammatory markers started to improve. However, she started to have more shortness of breath, at baseline normally 2 L of nasal cannula. She was requiring 4 at the times, so steroid doses were increased. She states that this was normally in COPD exacerbation, she required higher doses of steroids. Higher doses of steroids again were started. She was on Solu-Medrol IV and she continued to improve during hospital stay. She required a more long- term tapering of her steroids and she does have severe physical deconditioning. The decision was made to transfer the patient to [place] [facility] to continue her steroid tapering and also physical therapy. The patient does have a colostomy and this has been present for the past 2 years. She does not have any issues with that. Upon evaluation of the patient today, she states she is feeling slowly better. She continues to require nasal cannula oxygen. She denies any chest pain. She denies any dizziness. The patient complains of some palpitations due to not receiving her metoprolol dose yesterday. She states she is feeling much better today and she is excited to start physical therapy and her respiratory status improved. PAST MEDICAL HISTORY: COPD; diabetes type 2, on oral hypoglycemic drugs; depression; hypertension; colon rupture with colostomy bag; mixed hyperlipidemia; PVD; CAD. PAST SURGICAL HISTORY: Colostomy, colon resection, tubal ligation, appendectomy, cervical fusion. FAMILY HISTORY: The patient reports mother had depression, hypertension, CHF, and congestive heart failure with COPD. Mother . Father at age 62, had a history of NC and lung cancer. SOCIAL HISTORY: The patient is a former tobacco user. She denies any alcohol use or illicit drug use. CODE STATUS: The patient is a full code. REVIEW OF SYSTEMS: GENERAL: The patient complains of severe weakness. Denies fevers or chills. EYES: Denies eye pain, vision change, conjunctival inflammation. HENT: Denies any ear pain, discharge, mouth pain, nasal congestion. RESPIRATORY: Complains of cough, shortness of breath with exertion, wheezing. Denies any pleuritic pain. CARDIOVASCULAR: Denies chest pain, palpitation, or orthopnea. GASTROINTESTINAL: Denies any nausea, vomiting, abdominal pain, or diarrhea. GENITOURINARY: Denies dysuria, frequency, incontinence, or hematuria. MUSCULOSKELETAL: Denies any neck pain, shoulder pain, arm pain. Complains of weakness. SKIN: The patient does have multiple bruising to upper extremities due to hospital stay. NEUROLOGICAL: Complains of weakness. Denies any confusion, seizures. PSYCHIATRY: Denies depression, hallucination or confusion. MEDICATIONS: 1. Tylenol 650 p.r.n. q.4 for headache. 2. Combivent 1 inhalation q. 4 hours p.r.n. 3. Xanax 0.25 b.i.d. 4. Vitamin C 1000 daily. 5. Tessalon Perles 100 q.6 p.r.n. cough. 6. Lovenox 40 mg b.i.d. 7. Pepcid 20 mg b.i.d. 8. Lasix 20 mg daily p.r.n. 9. Mucinex 600 mg b.i.d. 10. Insulin Humalog sliding scale p.r.n. 11. Humalog 10 units t.i.d. with meals. 12. Glucophage 500 b.i.d. p.r.n. only with steroids. 13. Solu-Medrol 40 mg IV t.i.d. scheduled. 14. Lopressor 12.5 mg b.i.d. 15. Dulera 2 puffs b.i.d. 16. MiraLAX 17 g daily. 17. Florastor 20 mg daily. 18. Senokot one tab p.o. daily p.r.n. PHYSICAL EXAMINATION: VITAL SIGNS: Temperature 98.4, pulse 94, oxygen nasal cannula 3 L 94%, blood pressure 143/69. GENERAL: The patient is alert, awake, and oriented x3, lying comfortably in bed. HEENT: Normocephalic, atraumatic. Oral mucous membrane moist. Eyes, anicteric sclerae. NECK: Supple. Symmetric. No JVD. RESPIRATORY: Clear to auscultation bilaterally. No wheezing. HEART: Regular rate and rhythm. No murmurs. GASTROINTESTINAL: Positive bowel sounds. Soft, nontender, nondistended. SKIN: Patient does have multiple bruising and ecchymoses to bilateral upper extremities. PSYCHIATRIC: Normal affect and normal behavior. Alert, awake, and oriented x3. NEUROLOGIC: No focal deficits. Cranial nerves 2 through 12 grossly intact. ASSESSMENT: 1. COVID-19 pneumonia. 2. Chronic obstructive pulmonary disease acute exacerbation. 3. Acute hypoxic respiratory failure secondary to COVID-19 pneumonia and COPD exacerbation. 4. Severe deconditioning. 5. Type 2 diabetes. 6. Colostomy bag. 7. Hypertension. 8. Chronic obesity. PLAN: The patient is a 60-year-old female, who is being admitted to [facility] for continued IV steroids and physical deconditioning. The patient does have COVID-19 pneumonia and COPD exacerbation. We will resume all home medications. We will slowly taper off the patient's IV steroids. We will monitor the patient closely for any hemodynamic instability. We will help maintain the patient's oxygen saturation above 90%. We will check Accu-Cheks a.c. and at bedtime. We will continue Lovenox for DVT prophylaxis and Pepcid for GI prophylaxis. We will consult Physical Therapy for gait strengthening balance and ambulation. We will consult Occupational Therapy to help with activities of daily living prior to discharge back to home. ESTIMATED LENGTH OF STAY: 2 to 3 weeks. DISCHARGE DISPOSITION: Back to home. Estimated timed use to prepare and complete this H and P is greater than 60 minutes. Job ID: [id number] [facility]
[2020-08-10] MEDS: Polyethylene Glycol 3350 17 GM Packet PO SCH (20:23)
[2020-08-10] MEDS: HumaLOG 300 UNITS/3 ML VIAL SC PRN (20:32)
[2020-08-10] MEDS: Ipratropium/Albuterol Sulfate 4 GM AER IH PRN (22:36)
[2020-08-11] MEDS: Acetaminophen 325 MG TAB PO PRN ×2 (05:49→20:14)
[2020-08-11] MEDS: HumaLOG 300 UNITS/3 ML VIAL SC SCH ×4 (08:32→16:58)
[2020-08-11] MEDS: ALPRAZolam 0.25 MG TAB PO SCH ×2 (08:33→20:11)
[2020-08-11] MEDS: Metoprolol Tartrate 25 MG TAB PO SCH ×2 (08:33→20:12)
[2020-08-11] MEDS: guaiFENesin ER 600 MG TAB PO SCH ×2 (08:34→20:12)
[2020-08-11] MEDS: Famotidine 20 MG TAB PO SCH ×2 (08:34→20:12)
[2020-08-11] MEDS: Saccharomyces boulardii 250 MG CAP PO SCH (08:34)
[2020-08-11] MEDS: Mometasone/Formoterol 200/5 60 PUFF INH SCH ×2 (08:35→20:10)
[2020-08-11] MEDS: methylPREDNISolone Sod Succ 40 MG VIAL IVP SCH ×3 (08:35→20:14)
[2020-08-11] MEDS: Enoxaparin Sodium 40 MG/0.4 ML SYRINGE SC SCH ×2 (08:35→20:12)
[2020-08-11] MEDS ORDERED: Artificial Tear Sol 15 ML BOT EA EYE PRN (16:08)
[2020-08-11] MEDS: Artificial Tear Sol 15 ML BOT EA EYE PRN (20:14)
[2020-08-11] MEDS: Polyethylene Glycol 3350 17 GM Packet PO SCH (20:14)
[2020-08-11] MEDS: HumaLOG 300 UNITS/3 ML VIAL SC PRN (20:54)
[2020-08-12] MEDS: Acetaminophen 325 MG TAB PO PRN ×3 (03:22→20:16)
[2020-08-12] MEDS: Ipratropium/Albuterol Sulfate 4 GM AER IH PRN (03:23)
[2020-08-12] MEDS: Mometasone/Formoterol 200/5 60 PUFF INH SCH ×2 (07:46→20:18)
[2020-08-12] MEDS: Famotidine 20 MG TAB PO SCH ×2 (08:07→20:15)
[2020-08-12] MEDS: Metoprolol Tartrate 25 MG TAB PO SCH ×2 (08:08→20:15)
[2020-08-12] MEDS: ALPRAZolam 0.25 MG TAB PO SCH ×2 (08:08→20:16)
[2020-08-12] MEDS: Saccharomyces boulardii 250 MG CAP PO SCH (08:08)
[2020-08-12] MEDS: Ascorbic Acid 500 mg Chewable Tablet PO SCH (08:08)
[2020-08-12] MEDS: guaiFENesin ER 600 MG TAB PO SCH ×2 (08:09→20:15)
[2020-08-12] MEDS: methylPREDNISolone Sod Succ 40 MG VIAL IVP SCH ×2 (08:09→20:17)
[2020-08-12] MEDS: Enoxaparin Sodium 40 MG/0.4 ML SYRINGE SC SCH ×2 (08:10→20:17)
[2020-08-12] MEDS: HumaLOG 300 UNITS/3 ML VIAL SC SCH ×3 (08:18→17:29)
[2020-08-12] MEDS: Furosemide 20 MG TAB PO PRN (08:21)
[2020-08-12] MEDS ORDERED: methylPREDNISolone Sod Succ 40 MG VIAL IVP SCH (15:00)
[2020-08-12] MEDS: metFORMIN 500 MG TAB PO SCH (17:27)
[2020-08-12] MEDS: Ipratropium/Albuterol Sulfate 4 GM AER IH SCH ×2 (17:28→20:17)
[2020-08-12] MEDS: Polyethylene Glycol 3350 17 GM Packet PO SCH (20:16)
[2020-08-12] MEDS: Pseudoephedrine HCl 30 MG TAB PO PRN (20:16)
[2020-08-12] MEDS: Artificial Tear Sol 15 ML BOT EA EYE PRN (20:18)
[2020-08-12] MEDS: HumaLOG 300 UNITS/3 ML VIAL SC PRN (21:05)
[2020-08-12] MEDS ORDERED: metFORMIN 500 MG TAB PO SCH (22:45)
[2020-08-13] MEDS: Acetaminophen 325 MG TAB PO PRN (04:18)
[2020-08-13] MEDS: Acetaminophen/Codeine 30-300mg Tablet PO PRN ×2 (08:44→21:22)
[2020-08-13] MEDS: Pseudoephedrine HCl 30 MG TAB PO PRN ×2 (08:45→17:34)
[2020-08-13] MEDS: guaiFENesin ER 600 MG TAB PO SCH ×2 (08:45→20:01)
[2020-08-13] MEDS: ALPRAZolam 0.25 MG TAB PO SCH ×2 (08:45→20:00)
[2020-08-13] MEDS: Saccharomyces boulardii 250 MG CAP PO SCH (08:46)
[2020-08-13] MEDS: Ascorbic Acid 500 mg Chewable Tablet PO SCH (08:46)
[2020-08-13] MEDS: Metoprolol Tartrate 25 MG TAB PO SCH ×2 (08:46→20:01)
[2020-08-13] MEDS: Famotidine 20 MG TAB PO SCH ×2 (08:46→20:00)
[2020-08-13] MEDS: Loratadine 10 MG TAB PO SCH (08:46)
[2020-08-13] MEDS: methylPREDNISolone Sod Succ 40 MG VIAL IVP SCH ×2 (08:47→20:02)
[2020-08-13] MEDS: Mometasone/Formoterol 200/5 60 PUFF INH SCH ×2 (08:48→20:02)
[2020-08-13] MEDS: Ipratropium/Albuterol Sulfate 4 GM AER IH SCH ×4 (08:53→20:02)
[2020-08-13] MEDS: metFORMIN 500 MG TAB PO SCH ×2 (08:53→17:21)
[2020-08-13] MEDS: Enoxaparin Sodium 40 MG/0.4 ML SYRINGE SC SCH ×2 (08:55→20:00)
[2020-08-13] MEDS: HumaLOG 300 UNITS/3 ML VIAL SC SCH ×3 (08:56→17:22)
[2020-08-13] MEDS ORDERED: Acetaminophen/Codeine 30-300mg Tablet PO SCH (09:00)
[2020-08-13] MEDS: Polyethylene Glycol 3350 17 GM Packet PO SCH (20:02)
[2020-08-14] MEDS: Acetaminophen 325 MG TAB PO PRN ×2 (02:18→21:41)
[2020-08-14 06:22] LABS: Anion Gap 18 mmol/L (10-20); BUN (Urea Nitrogen) 33 mg/dL (9.8-20.1); Calc. Creatinine Clearance 84 mL/min (70-130); Carbon Dioxide 22 mmol/L (22-29); Chloride 99 mmol/L (98-107); Glucose 281 mg/dL (70-105); Potassium 4.5 mmol/L (3.5-5.1); Sodium 134 mmol/L (136-145)
[2020-08-14] MEDS: HumaLOG 300 UNITS/3 ML VIAL SC SCH ×3 (08:08→17:06)
[2020-08-14] MEDS: Ascorbic Acid 500 mg Chewable Tablet PO SCH (08:08)
[2020-08-14] MEDS: methylPREDNISolone Sod Succ 40 MG VIAL IVP SCH ×2 (08:08→21:27)
[2020-08-14] MEDS: Saccharomyces boulardii 250 MG CAP PO SCH (08:09)
[2020-08-14] MEDS: Famotidine 20 MG TAB PO SCH ×2 (08:09→21:23)
[2020-08-14] MEDS: metFORMIN 500 MG TAB PO SCH ×2 (08:09→17:06)
[2020-08-14] MEDS: Metoprolol Tartrate 25 MG TAB PO SCH ×2 (08:09→21:24)
[2020-08-14] MEDS: guaiFENesin ER 600 MG TAB PO SCH ×2 (08:09→21:24)
[2020-08-14] MEDS: ALPRAZolam 0.25 MG TAB PO SCH ×2 (08:09→21:23)
[2020-08-14] MEDS: Enoxaparin Sodium 40 MG/0.4 ML SYRINGE SC SCH ×2 (08:10→21:00)
[2020-08-14] MEDS: Loratadine 10 MG TAB PO SCH (08:11)
[2020-08-14] MEDS: Mometasone/Formoterol 200/5 60 PUFF INH SCH ×2 (08:11→21:25)
[2020-08-14] MEDS: Pseudoephedrine HCl 30 MG TAB PO PRN ×2 (08:21→21:41)
[2020-08-14] MEDS: Ipratropium/Albuterol Sulfate 4 GM AER IH SCH ×4 (08:22→21:25)
[2020-08-14] MEDS: Furosemide 20 MG TAB PO PRN (08:22)
[2020-08-14] MEDS: Acetaminophen/Codeine 30-300mg Tablet PO PRN (09:55)
[2020-08-14] MEDS: Nystatin 500,000 UNITS/5 ML UDCUP SSW SCH (21:23)
[2020-08-14] MEDS: Polyethylene Glycol 3350 17 GM Packet PO SCH (21:42)
[2020-08-14] MEDS: HumaLOG 300 UNITS/3 ML VIAL SC PRN (21:44)
[2020-08-14] MEDS: Nystatin/Triamcinolone Cream 15 GM TUBE TOP SCH (21:57)
[2020-08-15] MEDS: Saccharomyces boulardii 250 MG CAP PO SCH (08:24)
[2020-08-15] MEDS: Famotidine 20 MG TAB PO SCH ×2 (08:24→21:27)
[2020-08-15] MEDS: methylPREDNISolone Sod Succ 40 MG VIAL IVP SCH ×2 (08:24→21:30)
[2020-08-15] MEDS: metFORMIN 500 MG TAB PO SCH ×2 (08:24→17:01)
[2020-08-15] MEDS: Enoxaparin Sodium 40 MG/0.4 ML SYRINGE SC SCH ×2 (08:24→21:25)
[2020-08-15] MEDS: Ascorbic Acid 500 mg Chewable Tablet PO SCH (08:25)
[2020-08-15] MEDS: ALPRAZolam 0.25 MG TAB PO SCH ×2 (08:25→21:26)
[2020-08-15] MEDS: guaiFENesin ER 600 MG TAB PO SCH ×2 (08:25→21:27)
[2020-08-15] MEDS: Loratadine 10 MG TAB PO SCH (08:25)
[2020-08-15] MEDS: Nystatin 500,000 UNITS/5 ML UDCUP SSW SCH ×4 (08:25→21:28)
[2020-08-15] MEDS: Metoprolol Tartrate 25 MG TAB PO SCH ×2 (08:26→21:27)
[2020-08-15] MEDS: Senokot 8.6 MG TAB PO PRN (08:26)
[2020-08-15] MEDS: Pseudoephedrine HCl 30 MG TAB PO PRN ×2 (08:26→21:28)
[2020-08-15] MEDS: Furosemide 20 MG TAB PO PRN (08:26)
[2020-08-15] MEDS: Nystatin/Triamcinolone Cream 15 GM TUBE TOP SCH ×2 (08:28→21:29)
[2020-08-15] MEDS: Ipratropium/Albuterol Sulfate 4 GM AER IH SCH ×4 (08:37→21:24)
[2020-08-15] MEDS: Acetaminophen 325 MG TAB PO PRN (08:38)
[2020-08-15] MEDS: Mometasone/Formoterol 200/5 60 PUFF INH SCH ×2 (08:38→21:23)
[2020-08-15] MEDS: HumaLOG 300 UNITS/3 ML VIAL SC SCH ×3 (08:38→17:01)
[2020-08-15] MEDS: Acetaminophen/Codeine 30-300mg Tablet PO PRN (21:22)
[2020-08-15] MEDS: Polyethylene Glycol 3350 17 GM Packet PO SCH (21:29)
[2020-08-16] MEDS: Acetaminophen 325 MG TAB PO PRN ×2 (03:16→20:28)
[2020-08-16] MEDS: metFORMIN 500 MG TAB PO SCH ×2 (07:53→16:56)
[2020-08-16] MEDS: HumaLOG 300 UNITS/3 ML VIAL SC SCH ×3 (07:53→16:57)
[2020-08-16] MEDS: Enoxaparin Sodium 40 MG/0.4 ML SYRINGE SC SCH ×2 (07:59→20:26)
[2020-08-16] MEDS: Nystatin 500,000 UNITS/5 ML UDCUP SSW SCH ×4 (07:59→20:26)
[2020-08-16] MEDS: Famotidine 20 MG TAB PO SCH ×2 (07:59→20:26)
[2020-08-16] MEDS: Loratadine 10 MG TAB PO SCH (08:00)
[2020-08-16] MEDS: Metoprolol Tartrate 25 MG TAB PO SCH ×2 (08:00→20:27)
[2020-08-16] MEDS: guaiFENesin ER 600 MG TAB PO SCH ×2 (08:00→20:27)
[2020-08-16] MEDS: Saccharomyces boulardii 250 MG CAP PO SCH (08:00)
[2020-08-16] MEDS: Ascorbic Acid 500 mg Chewable Tablet PO SCH (08:00)
[2020-08-16] MEDS: Ipratropium/Albuterol Sulfate 4 GM AER IH SCH ×4 (08:01→20:29)
[2020-08-16] MEDS: ALPRAZolam 0.25 MG TAB PO SCH ×2 (08:01→20:26)
[2020-08-16] MEDS: Nystatin/Triamcinolone Cream 15 GM TUBE TOP SCH ×2 (08:03→20:38)
[2020-08-16] MEDS: Mometasone/Formoterol 200/5 60 PUFF INH SCH ×2 (08:03→20:29)
[2020-08-16] MEDS: methylPREDNISolone Sod Succ 40 MG VIAL IVP SCH ×2 (08:03→20:30)
[2020-08-16] MEDS: Pseudoephedrine HCl 30 MG TAB PO PRN ×2 (08:33→17:21)
[2020-08-16] MEDS: Furosemide 20 MG TAB PO PRN (10:39)
[2020-08-16] MEDS: HumaLOG 300 UNITS/3 ML VIAL SC PRN ×2 (12:03→16:57)
[2020-08-16] MEDS: Polyethylene Glycol 3350 17 GM Packet PO SCH (20:30)
[2020-08-17] MEDS: Acetaminophen/Codeine 30-300mg Tablet PO PRN (03:15)
[2020-08-17] MEDS: Ipratropium/Albuterol Sulfate 4 GM AER IH SCH ×4 (09:01→20:18)
[2020-08-17] MEDS: Mometasone/Formoterol 200/5 60 PUFF INH SCH ×2 (09:02→20:19)
[2020-08-17] MEDS: Pseudoephedrine HCl 30 MG TAB PO PRN ×2 (09:04→20:16)
[2020-08-17] MEDS: Nystatin 500,000 UNITS/5 ML UDCUP SSW SCH ×4 (09:04→20:18)
[2020-08-17] MEDS: Famotidine 20 MG TAB PO SCH ×2 (09:04→20:17)
[2020-08-17] MEDS: guaiFENesin ER 600 MG TAB PO SCH ×2 (09:04→20:18)
[2020-08-17] MEDS: Loratadine 10 MG TAB PO SCH (09:05)
[2020-08-17] MEDS: metFORMIN 500 MG TAB PO SCH ×2 (09:05→17:26)
[2020-08-17] MEDS: Ascorbic Acid 500 mg Chewable Tablet PO SCH (09:05)
[2020-08-17] MEDS: ALPRAZolam 0.25 MG TAB PO SCH ×2 (09:05→20:16)
[2020-08-17] MEDS: Saccharomyces boulardii 250 MG CAP PO SCH (09:06)
[2020-08-17] MEDS: Metoprolol Tartrate 25 MG TAB PO SCH ×2 (09:06→20:18)
[2020-08-17] MEDS: Furosemide 20 MG TAB PO PRN (09:06)
[2020-08-17] MEDS: methylPREDNISolone Sod Succ 40 MG VIAL IVP SCH (09:06)
[2020-08-17] MEDS: HumaLOG 300 UNITS/3 ML VIAL SC SCH ×3 (09:07→17:28)
[2020-08-17] MEDS: Enoxaparin Sodium 40 MG/0.4 ML SYRINGE SC SCH ×2 (09:08→20:19)
[2020-08-17] MEDS: Nystatin/Triamcinolone Cream 15 GM TUBE TOP SCH ×2 (09:08→20:19)
[2020-08-17] MEDS: Acetaminophen 325 MG TAB PO PRN (20:17)
[2020-08-17] MEDS: predniSONE 10 MG TAB PO SCH (20:17)
[2020-08-17] MEDS: Polyethylene Glycol 3350 17 GM Packet PO SCH (20:19)
[2020-08-18] MEDS: Ipratropium/Albuterol Sulfate 4 GM AER IH SCH ×4 (09:13→20:51)
[2020-08-18] MEDS: Mometasone/Formoterol 200/5 60 PUFF INH SCH ×2 (09:14→20:49)
[2020-08-18] MEDS: Nystatin/Triamcinolone Cream 15 GM TUBE TOP SCH ×2 (09:15→20:57)
[2020-08-18] MEDS: Nystatin 500,000 UNITS/5 ML UDCUP SSW SCH ×4 (09:16→20:52)
[2020-08-18] MEDS: Pseudoephedrine HCl 30 MG TAB PO PRN ×2 (09:17→20:53)
[2020-08-18] MEDS: Saccharomyces boulardii 250 MG CAP PO SCH (09:17)
[2020-08-18] MEDS: Metoprolol Tartrate 25 MG TAB PO SCH ×2 (09:17→20:54)
[2020-08-18] MEDS: metFORMIN 500 MG TAB PO SCH ×2 (09:18→17:24)
[2020-08-18] MEDS: guaiFENesin ER 600 MG TAB PO SCH ×2 (09:18→20:56)
[2020-08-18] MEDS: predniSONE 10 MG TAB PO SCH ×2 (09:18→21:06)
[2020-08-18] MEDS: ALPRAZolam 0.25 MG TAB PO SCH ×2 (09:18→20:52)
[2020-08-18] MEDS: Famotidine 20 MG TAB PO SCH ×2 (09:19→20:53)
[2020-08-18] MEDS: HumaLOG 300 UNITS/3 ML VIAL SC SCH ×3 (09:19→17:25)
[2020-08-18] MEDS: Ascorbic Acid 500 mg Chewable Tablet PO SCH (09:19)
[2020-08-18] MEDS: Enoxaparin Sodium 40 MG/0.4 ML SYRINGE SC SCH ×2 (09:19→20:11)
[2020-08-18] MEDS: Loratadine 10 MG TAB PO SCH (09:20)
[2020-08-18] MEDS: Acetaminophen 325 MG TAB PO PRN (20:53)
[2020-08-18] MEDS: Polyethylene Glycol 3350 17 GM Packet PO SCH (20:58)
[2020-08-18] MEDS: Acetaminophen/Codeine 30-300mg Tablet PO PRN (23:42)
[2020-08-19] MEDS: Nystatin 500,000 UNITS/5 ML UDCUP SSW SCH ×4 (07:54→20:59)
[2020-08-19] MEDS: Famotidine 20 MG TAB PO SCH ×2 (07:55→21:08)
[2020-08-19] MEDS: Saccharomyces boulardii 250 MG CAP PO SCH (07:55)
[2020-08-19] MEDS: HumaLOG 300 UNITS/3 ML VIAL SC SCH ×3 (07:55→16:59)
[2020-08-19] MEDS: ALPRAZolam 0.25 MG TAB PO SCH ×2 (07:55→21:09)
[2020-08-19] MEDS: predniSONE 10 MG TAB PO SCH ×2 (07:56→21:13)
[2020-08-19] MEDS: Ascorbic Acid 500 mg Chewable Tablet PO SCH (07:56)
[2020-08-19] MEDS: Metoprolol Tartrate 25 MG TAB PO SCH ×2 (07:56→21:04)
[2020-08-19] MEDS: Senokot 8.6 MG TAB PO PRN (07:57)
[2020-08-19] MEDS: Enoxaparin Sodium 40 MG/0.4 ML SYRINGE SC SCH ×2 (07:57→21:08)
[2020-08-19] MEDS: guaiFENesin ER 600 MG TAB PO SCH ×2 (07:57→21:08)
[2020-08-19] MEDS: Pseudoephedrine HCl 30 MG TAB PO PRN ×2 (07:57→21:09)
[2020-08-19] MEDS: metFORMIN 500 MG TAB PO SCH ×2 (07:57→16:58)
[2020-08-19] MEDS: Loratadine 10 MG TAB PO SCH (07:57)
[2020-08-19] MEDS: Nystatin/Triamcinolone Cream 15 GM TUBE TOP SCH ×2 (07:58→21:14)
[2020-08-19] MEDS: Ipratropium/Albuterol Sulfate 4 GM AER IH SCH ×4 (07:58→21:08)
[2020-08-19] MEDS: Mometasone/Formoterol 200/5 60 PUFF INH SCH ×2 (07:58→21:07)
[2020-08-19] MEDS: Acetaminophen 325 MG TAB PO PRN ×2 (08:13→15:18)
[2020-08-19] MEDS: Polyethylene Glycol 3350 17 GM Packet PO SCH (21:05)
[2020-08-19] MEDS: Acetaminophen/Codeine 30-300mg Tablet PO PRN (21:08)
[2020-08-20] MEDS: Famotidine 20 MG TAB PO SCH ×2 (08:22→20:17)
[2020-08-20] MEDS: Saccharomyces boulardii 250 MG CAP PO SCH (08:23)
[2020-08-20] MEDS: ALPRAZolam 0.25 MG TAB PO SCH ×2 (08:23→20:15)
[2020-08-20] MEDS: Ascorbic Acid 500 mg Chewable Tablet PO SCH (08:23)
[2020-08-20] MEDS: metFORMIN 500 MG TAB PO SCH ×2 (08:23→17:20)
[2020-08-20] MEDS: guaiFENesin ER 600 MG TAB PO SCH ×2 (08:24→20:18)
[2020-08-20] MEDS: predniSONE 10 MG TAB PO SCH ×2 (08:24→20:17)
[2020-08-20] MEDS: Metoprolol Tartrate 25 MG TAB PO SCH ×2 (08:24→20:18)
[2020-08-20] MEDS: Nystatin 500,000 UNITS/5 ML UDCUP SSW SCH ×4 (08:25→20:17)
[2020-08-20] MEDS: HumaLOG 300 UNITS/3 ML VIAL SC SCH ×3 (08:28→17:49)
[2020-08-20] MEDS: Enoxaparin Sodium 40 MG/0.4 ML SYRINGE SC SCH ×2 (08:31→20:19)
[2020-08-20] MEDS: Loratadine 10 MG TAB PO SCH (08:32)
[2020-08-20] MEDS: Mometasone/Formoterol 200/5 60 PUFF INH SCH ×2 (08:32→20:21)
[2020-08-20] MEDS: Ipratropium/Albuterol Sulfate 4 GM AER IH SCH ×4 (08:32→20:21)
[2020-08-20] MEDS: Pseudoephedrine HCl 30 MG TAB PO PRN ×3 (08:37→20:16)
[2020-08-20] MEDS: Nystatin/Triamcinolone Cream 15 GM TUBE TOP SCH ×2 (08:49→20:18)
[2020-08-20] MEDS: Acetaminophen 325 MG TAB PO PRN (13:44)
[2020-08-20] MEDS: Acetaminophen/Codeine 30-300mg Tablet PO PRN (20:15)
[2020-08-20] MEDS: Polyethylene Glycol 3350 17 GM Packet PO SCH (20:16)
[2020-08-21] MEDS: Acetaminophen 325 MG TAB PO PRN ×2 (04:55→14:39)
[2020-08-21] MEDS: Ascorbic Acid 500 mg Chewable Tablet PO SCH (07:57)
[2020-08-21] MEDS: ALPRAZolam 0.25 MG TAB PO SCH ×2 (07:57→21:06)
[2020-08-21] MEDS: Saccharomyces boulardii 250 MG CAP PO SCH (07:57)
[2020-08-21] MEDS: Famotidine 20 MG TAB PO SCH ×2 (07:57→20:55)
[2020-08-21] MEDS: guaiFENesin ER 600 MG TAB PO SCH ×2 (07:58→20:55)
[2020-08-21] MEDS: Metoprolol Tartrate 25 MG TAB PO SCH ×2 (07:58→20:55)
[2020-08-21] MEDS: predniSONE 10 MG TAB PO SCH (07:58)
[2020-08-21] MEDS: metFORMIN 500 MG TAB PO SCH ×2 (07:58→17:12)
[2020-08-21] MEDS: Loratadine 10 MG TAB PO SCH (07:59)
[2020-08-21] MEDS: Mometasone/Formoterol 200/5 60 PUFF INH SCH ×2 (07:59→20:54)
[2020-08-21] MEDS: Ipratropium/Albuterol Sulfate 4 GM AER IH SCH ×4 (07:59→20:53)
[2020-08-21] MEDS: Nystatin 500,000 UNITS/5 ML UDCUP SSW SCH ×4 (08:00→20:52)
[2020-08-21] MEDS: Enoxaparin Sodium 40 MG/0.4 ML SYRINGE SC SCH ×2 (08:00→21:07)
[2020-08-21] MEDS: HumaLOG 300 UNITS/3 ML VIAL SC SCH ×3 (08:00→17:12)
[2020-08-21] MEDS: Pseudoephedrine HCl 30 MG TAB PO PRN ×3 (08:01→20:49)
[2020-08-21] MEDS: Furosemide 20 MG TAB PO PRN (08:01)
[2020-08-21] MEDS: Senokot 8.6 MG TAB PO PRN (08:01)
[2020-08-21] MEDS: Nystatin/Triamcinolone Cream 15 GM TUBE TOP SCH ×2 (08:08→20:53)
[2020-08-21] MEDS: Acetaminophen/Codeine 30-300mg Tablet PO PRN (20:49)
[2020-08-21] MEDS: Polyethylene Glycol 3350 17 GM Packet PO SCH (20:52)
[2020-08-22] MEDS: Acetaminophen 325 MG TAB PO PRN ×2 (05:16→11:42)
[2020-08-22] MEDS ORDERED: predniSONE 20 MG TAB PO SCH ×2 (09:00→12:00)
[2020-08-22] MEDS: HumaLOG 300 UNITS/3 ML VIAL SC SCH ×3 (09:09→17:51)
[2020-08-22] MEDS: metFORMIN 500 MG TAB PO SCH ×2 (09:10→17:51)
[2020-08-22] MEDS: ALPRAZolam 0.25 MG TAB PO SCH ×2 (09:10→20:47)
[2020-08-22] MEDS: Ascorbic Acid 500 mg Chewable Tablet PO SCH (09:11)
[2020-08-22] MEDS: guaiFENesin ER 600 MG TAB PO SCH ×2 (09:13→20:49)
[2020-08-22] MEDS: Saccharomyces boulardii 250 MG CAP PO SCH (09:13)
[2020-08-22] MEDS: Famotidine 20 MG TAB PO SCH ×2 (09:13→20:48)
[2020-08-22] MEDS: Metoprolol Tartrate 25 MG TAB PO SCH ×2 (09:13→20:48)
[2020-08-22] MEDS: Pseudoephedrine HCl 30 MG TAB PO PRN ×2 (09:15→20:48)
[2020-08-22] MEDS: Ipratropium/Albuterol Sulfate 4 GM AER IH SCH ×4 (09:15→20:46)
[2020-08-22] MEDS: Loratadine 10 MG TAB PO SCH (09:16)
[2020-08-22] MEDS: Mometasone/Formoterol 200/5 60 PUFF INH SCH ×2 (09:16→20:46)
[2020-08-22] MEDS: Nystatin/Triamcinolone Cream 15 GM TUBE TOP SCH ×2 (09:19→20:50)
[2020-08-22] MEDS: Nystatin 500,000 UNITS/5 ML UDCUP SSW SCH ×4 (09:19→20:50)
[2020-08-22] MEDS: Enoxaparin Sodium 40 MG/0.4 ML SYRINGE SC SCH ×2 (09:22→20:49)
[2020-08-22] MEDS: Furosemide 20 MG TAB PO PRN (14:41)
[2020-08-22] MEDS: Acetaminophen/Codeine 30-300mg Tablet PO PRN (20:47)
[2020-08-22] MEDS: Polyethylene Glycol 3350 17 GM Packet PO SCH (20:50)
[2020-08-22] MEDS: HumaLOG 300 UNITS/3 ML VIAL SC PRN (20:55)
[2020-08-22] MEDS ORDERED: Finasteride 5 MG TAB PO SCH (21:00)
[2020-08-23] MEDS ORDERED: Ipratropium/Albuterol Sulfate 4 GM AER IH SCH (00:45)
[2020-08-23] MEDS ORDERED: predniSONE 20 MG TAB PO SCH ×3 (02:15→17:00)
[2020-08-23] MEDS ORDERED: ALPRAZolam 0.5 MG TAB PO SCH ×2 (02:15→17:15)
--- NOTE | 2020-08-23 08:44 | RAD ---
PORTABLE CHEST: Date: 08/23/2020 HISTORY: Shortness of breath. COMPARISON: 08/01/2020. FINDINGS: There is new focal opacity in the peripheral right lung when compared to the prior study indicating n ew infiltrate. Left lung is well aerated. Possibly linear atelectasis in the left lung base. Right CP angle is obscured and there may be small effusion and/or atelectasis in the right lung base. Hazy interstitial infiltrate in the right lower lung. IMPRESSION: New infiltrate in the right mid and lower lung. Consider COVID pneumonia. POS: [facility]
[2020-08-23] MEDS: HumaLOG 300 UNITS/3 ML VIAL SC SCH ×3 (08:57→18:25)
[2020-08-23] MEDS: metFORMIN 500 MG TAB PO SCH ×2 (08:58→17:20)
[2020-08-23] MEDS: ALPRAZolam 0.25 MG TAB PO SCH (08:58)
[2020-08-23] MEDS: Metoprolol Tartrate 25 MG TAB PO SCH ×2 (09:00→20:17)
[2020-08-23] MEDS: Famotidine 20 MG TAB PO SCH ×2 (09:00→20:19)
[2020-08-23] MEDS: guaiFENesin ER 600 MG TAB PO SCH ×2 (09:00→20:20)
[2020-08-23] MEDS: Saccharomyces boulardii 250 MG CAP PO SCH (09:00)
[2020-08-23] MEDS ORDERED: predniSONE 10 MG TAB PO SCH (09:00)
[2020-08-23] MEDS: Nystatin 500,000 UNITS/5 ML UDCUP SSW SCH ×4 (09:01→20:18)
[2020-08-23] MEDS: Ascorbic Acid 500 mg Chewable Tablet PO SCH (09:01)
[2020-08-23] MEDS: Pseudoephedrine HCl 30 MG TAB PO PRN (09:03)
[2020-08-23] MEDS: Furosemide 20 MG TAB PO PRN (09:03)
[2020-08-23] MEDS: Mometasone/Formoterol 200/5 60 PUFF INH SCH ×2 (09:04→20:20)
[2020-08-23] MEDS: Ipratropium/Albuterol Sulfate 4 GM AER IH SCH ×4 (09:05→20:20)
[2020-08-23] MEDS: Enoxaparin Sodium 40 MG/0.4 ML SYRINGE SC SCH (09:06)
[2020-08-23] MEDS: Loratadine 10 MG TAB PO SCH (09:10)
[2020-08-23] MEDS: Nystatin/Triamcinolone Cream 15 GM TUBE TOP SCH ×2 (09:11→20:22)
[2020-08-23] MEDS ORDERED: methylPREDNISolone Sod Succ/PF 125 MG/2 ML VIAL ONE (16:37)
[2020-08-23] MEDS ORDERED: methylPREDNISolone Sod Succ 40 MG VIAL IVP SCH (17:15)
[2020-08-23] MEDS: Acetaminophen 325 MG TAB PO PRN (20:18)
[2020-08-23] MEDS: Simethicone Chewable 80 MG TAB PO PRN (20:18)
[2020-08-23] MEDS: Polyethylene Glycol 3350 17 GM Packet PO SCH (20:22)
[2020-08-23] MEDS: ALPRAZolam 0.25 MG TAB PO PRN (21:25)
[2020-08-24] MEDS: methylPREDNISolone Sod Succ/PF 125 MG/2 ML VIAL IVP SCH ×2 (04:50→17:20)
[2020-08-24] MEDS: ALPRAZolam 0.25 MG TAB PO PRN ×2 (05:09→19:50)
[2020-08-24] MEDS: Metoprolol Tartrate 25 MG TAB PO SCH ×2 (07:24→19:51)
[2020-08-24] MEDS: Pseudoephedrine HCl 30 MG TAB PO PRN (08:37)
[2020-08-24] MEDS: Ascorbic Acid 500 mg Chewable Tablet PO SCH (08:37)
[2020-08-24] MEDS: metFORMIN 500 MG TAB PO SCH ×2 (08:37→17:19)
[2020-08-24] MEDS: guaiFENesin ER 600 MG TAB PO SCH ×2 (08:37→19:51)
[2020-08-24] MEDS: Famotidine 20 MG TAB PO SCH ×2 (08:37→19:48)
[2020-08-24] MEDS: HumaLOG 300 UNITS/3 ML VIAL SC SCH ×3 (08:37→17:19)
[2020-08-24] MEDS: Nystatin/Triamcinolone Cream 15 GM TUBE TOP SCH ×2 (08:38→19:59)
[2020-08-24] MEDS: Mometasone/Formoterol 200/5 60 PUFF INH SCH ×2 (08:38→19:49)
[2020-08-24] MEDS: Senokot 8.6 MG TAB PO PRN (08:38)
[2020-08-24] MEDS: Nystatin 500,000 UNITS/5 ML UDCUP SSW SCH ×5 (08:38→19:50)
[2020-08-24] MEDS: Saccharomyces boulardii 250 MG CAP PO SCH (08:38)
[2020-08-24] MEDS: Enoxaparin Sodium 40 MG/0.4 ML SYRINGE SC SCH (08:39)
[2020-08-24] MEDS: Ipratropium/Albuterol Sulfate 4 GM AER IH SCH ×4 (08:39→19:49)
[2020-08-24] MEDS: Loratadine 10 MG TAB PO SCH (08:40)
[2020-08-24] MEDS: Acetaminophen 325 MG TAB PO PRN ×2 (08:46→21:32)
[2020-08-24] MEDS: Simethicone Chewable 80 MG TAB PO PRN (17:27)
[2020-08-24] MEDS: Polyethylene Glycol 3350 17 GM Packet PO SCH (19:59)
[2020-08-25] MEDS: methylPREDNISolone Sod Succ/PF 125 MG/2 ML VIAL IVP SCH ×2 (04:57→17:06)
[2020-08-25] MEDS: ALPRAZolam 0.25 MG TAB PO PRN ×3 (07:55→21:29)
[2020-08-25] MEDS: Famotidine 20 MG TAB PO SCH ×2 (08:39→21:17)
[2020-08-25] MEDS: Ascorbic Acid 500 mg Chewable Tablet PO SCH (08:40)
[2020-08-25] MEDS: Saccharomyces boulardii 250 MG CAP PO SCH (08:40)
[2020-08-25] MEDS: Metoprolol Tartrate 25 MG TAB PO SCH ×2 (08:40→21:17)
[2020-08-25] MEDS: guaiFENesin ER 600 MG TAB PO SCH ×2 (08:41→21:17)
[2020-08-25] MEDS: HumaLOG 300 UNITS/3 ML VIAL SC SCH ×3 (08:41→17:05)
[2020-08-25] MEDS: Enoxaparin Sodium 40 MG/0.4 ML SYRINGE SC SCH (08:41)
[2020-08-25] MEDS: metFORMIN 500 MG TAB PO SCH ×2 (08:41→17:06)
[2020-08-25] MEDS: Ipratropium/Albuterol Sulfate 4 GM AER IH SCH ×4 (08:42→21:20)
[2020-08-25] MEDS: Mometasone/Formoterol 200/5 60 PUFF INH SCH ×2 (08:42→21:32)
[2020-08-25] MEDS: Loratadine 10 MG TAB PO SCH (08:43)
[2020-08-25] MEDS: Nystatin/Triamcinolone Cream 15 GM TUBE TOP SCH ×2 (08:43→21:32)
[2020-08-25] MEDS: Acetaminophen 325 MG TAB PO PRN ×3 (08:53→21:29)
[2020-08-25] MEDS: Nystatin 500,000 UNITS/5 ML UDCUP SSW SCH ×3 (12:11→21:20)
[2020-08-25] MEDS: Polyethylene Glycol 3350 17 GM Packet PO SCH (21:18)
[2020-08-26] MEDS: Acetaminophen 325 MG TAB PO PRN ×2 (04:18→09:21)
[2020-08-26] MEDS: ALPRAZolam 0.25 MG TAB PO PRN ×3 (04:19→17:34)
[2020-08-26] MEDS: methylPREDNISolone Sod Succ/PF 125 MG/2 ML VIAL IVP SCH ×2 (04:21→17:41)
[2020-08-26] MEDS: Mometasone/Formoterol 200/5 60 PUFF INH SCH ×2 (09:18→19:52)
[2020-08-26] MEDS: Ipratropium/Albuterol Sulfate 4 GM AER IH SCH ×4 (09:18→19:52)
[2020-08-26] MEDS: Famotidine 20 MG TAB PO SCH ×2 (09:20→19:49)
[2020-08-26] MEDS: guaiFENesin ER 600 MG TAB PO SCH ×2 (09:20→19:51)
[2020-08-26] MEDS: metFORMIN 500 MG TAB PO SCH ×2 (09:20→17:45)
[2020-08-26] MEDS: Loratadine 10 MG TAB PO SCH (09:20)
[2020-08-26] MEDS: Ascorbic Acid 500 mg Chewable Tablet PO SCH (09:20)
[2020-08-26] MEDS: Metoprolol Tartrate 25 MG TAB PO SCH ×2 (09:21→19:50)
[2020-08-26] MEDS: Saccharomyces boulardii 250 MG CAP PO SCH (09:21)
[2020-08-26] MEDS: Nystatin/Triamcinolone Cream 15 GM TUBE TOP SCH ×2 (09:23→19:53)
[2020-08-26] MEDS: Nystatin 500,000 UNITS/5 ML UDCUP SSW SCH ×4 (09:23→19:51)
[2020-08-26] MEDS: HumaLOG 300 UNITS/3 ML VIAL SC SCH ×3 (09:24→17:47)
[2020-08-26] MEDS: Enoxaparin Sodium 40 MG/0.4 ML SYRINGE SC SCH (09:37)
[2020-08-26] MEDS ORDERED: Iopamidol 370 76% 100 ML VIAL ONE (12:43)
[2020-08-26 15:52] LABS: ALT (SGPT) 36 U/L (8-55); AST (SGOT) 11 U/L (5-34); Albumin 3.4 g/dL (3.5-5.0); Alkaline Phosphatase 75 U/L (40-110); Anion Gap 21 mmol/L (10-20); BUN (Urea Nitrogen) 28 mg/dL (9.8-20.1); Bilirubin, Total 0.3 mg/dL (0.2-1.2); Calc. Creatinine Clearance 92 mL/min (70-130); Calcium 10.3 mg/dL (7.8-10.44); Carbon Dioxide 25 mmol/L (22-29); Chloride 93 mmol/L (98-107); Glucose 220 mg/dL (70-105); Potassium 4.9 mmol/L (3.5-5.1); Protein, Total 7.4 g/dL (6.0-8.3); Sodium 134 mmol/L (136-145)
[2020-08-26 16:02] LABS: Band 2 % (5-11); Eosinophils 1 % (0-10); Hemoglobin 12.4 g/dL (12.0-16.0); MDiff Complete? YES; Mean Corpuscular HGB CONC 30.9 g/dL (32.0-36.0); Mean Corpuscular Hemoglobin 27.9 pg (27.0-31.0); Mean Corpuscular Volume 90.3 fL (78.0-98.0); Monocytes 4 % (0-10); Neutrophil 93 % (42-75); Platelet Count 237 thou/uL (130-400); Platelet Morphology Comment Appears Adequate; RBC Distribution Width 14.5 % (11.5-14.5); RBC Morphology Normal; Red Blood Cell (RBC) Count 4.44 mill/uL (4.20-5.40); White Blood Cell (WBC) Count 20.9 thou/uL (4.8-10.8)
--- NOTE | 2020-08-26 17:49 | CT ---
CT OF CHEST PERFORMED WITH INTRAVENOUS CONTRAST ENHANCEMENT: History: Shortness of breath Comparison: Chest x-ray, 08-23-2020 FINDINGS: There are COPD changes present. There is extensive right lower lobe consolidation which is worsened a s compared to the previous chest radiograph. Small ill-defined nodular focus in the left lower lobe i s probably on the basis of small focus of pneumonitis type change. No pleural effusion. No significant mediastinal or hilar adenopathy. There are coronary calcifications present. Visualized liver parenchyma showed fatty change. IMPRESSION: Worsening consolidation in the superior segment of the right lower lobe consistent with pneumonia. Ot her findings as noted above. POS: [facility]
[2020-08-26 19:39] VITALS: BP 138/84; TEMP 98.7
[2020-08-26] MEDS: Polyethylene Glycol 3350 17 GM Packet PO SCH (19:53)
--- NOTE | 2020-08-27 14:33 | DIS ---
DATE OF ADMISSION: 08/09/2020 DATE OF DISCHARGE: 08/26/2020 DISCHARGE DIAGNOSES: 1. [id number] respiratory failure, requiring BIPAP 2. Pneumonia, likely bacterial, right upper lobe, worsening on CT chest 3.Chronic obstructive pulmonary disease, advanced. Requiring continuous oxygen supplement 4. History of COVID virus infection diagnosed on 07/25/2020. 5. Hypertension. 6. Type 2 diabetes. 7. Obesity. DISPOSITION: [facility]. CURRENT MEDICATIONS: 1. Acetaminophen 650 mg p.o. q.4 hours p.r.n. 2. Proventil HFA 2 puffs q.4 hours p.r.n. 3. Alprazolam 0.25 mg p.o. b.i.d. 4. Ascorbic acid 1000 mg p.o. daily. 5. Benzonatate 100 mg q.6 hours p.r.n. 6. Lovenox 40 mg subcu daily. 7. Famotidine 20 mg p.o. b.i.d. 8. Dulera 2 inhalations b.i.d. 9. Furosemide 20 mg daily p.r.n. 10. Guaifenesin 600 mg q.12 hours. 11. Sliding scale with Humalog. 12. Lisinopril 2.5 mg p.o. daily. 13. Metformin 500 mg p.o. b.i.d. 14. Metoprolol 12.5 mg p.o. daily. 15. Polyethylene glycol 17 g p.o. at bedtime. 16. Florastor 250 mg p.o. daily. 17. Sennoside 8.5 mg p.o. daily. HISTORY OF THE PRESENT ILLNESS AND HOSPITAL COURSE: Ms. Israel is a 60-year-old female with significant history of COPD. The patient has recently been having COPD exacerbation over the past couple of months requiring inpatient management. On her last hospitalization in July 25, 2020, patient was diagnosed with COVID-19 virus infection. At the time of admission, she had shown elevated D-dimer. Her chest x-ray as well as CTA at that time were unremarkable. The patient was treated for COVID pneumonia at that time. She also was empirically treated with cefepime and Zithromax as well as systemic steroid at that time. Patient was reported to have a hard time weaning off IV steroid, as she easily desats with light exertion. When patient was deemed hemodynamically stable, she was transferred to [place] due to severe deconditioning. The patient initially did well in rehab initially. The patient's steroid was transitioned to oral without significant issues until 3 days prior to transfer, when patient started having increased shortness of breath. Her systemic steroid was transitioned back to intravenous on a higher dose. Her chest x-ray on 08/23/2020 showed a new infiltrate in the right middle and lower lobes. Patient was started on IV Levaquin for pneumonia, likely bacterial. The patient was observed further and has stabilized for the last 48 hours. However on 08/27/2020, the patient reported having worsening shortness of breath and found to have labored breathing. Her D-dimer was elevated at 1.6. Her CT scan showed worsening consolidation in the superior segment of the right lower lobe consistent with pneumonia. The patient then required BiPAP as she desats down to 86% to 88% at 4 L and continuous O2 per nasal cannula. The patient was then transferred to [facility] for acute respiratory distress. She was subsequently admitted to [facility] for higher level of care/specialty care. The transfer was coordinated with both [facility] in hospitalist, Dr. Jara. PHYSICAL EXAMINATION: VITAL SIGNS: Prior to discharge: blood pressure 138/86heart rate of 115, respirations 22 to 24, O2 saturations 96% with BiPAP with O2 flow rate of 4 L, . temperature 98.7, CODE STATUS: Full code. Time spent on this discharge 55 minute in examining the patient, counseling the patient, family and spouse and coordinating transfer of care. Job ID: [id number] [facility]
== END 2020-08-26 21:17 | disposition short-term general hospital (02) | DRG 947 ==
LOC: MADMS 18:05
PROVIDERS: ADMIT Family Medicine; ATTEND Family Medicine
DX: R53.81 Other malaise (principal); U07.1 COVID-19; J12.89 Other viral pneumonia; J96.01 Acute respiratory failure with hypoxia; J44.1 Chronic obstructive pulmonary disease with (acute) exacerbation; J44.0 Chronic obstructive pulmonary disease with (acute) lower respiratory infection; E87.1 Hypo-osmolality and hyponatremia; F32.9 Major depressive disorder, single episode, unspecified; E78.2 Mixed hyperlipidemia; I25.10 Atherosclerotic heart disease of native coronary artery without angina pectoris; E66.9 Obesity, unspecified; I10 Essential (primary) hypertension; J30.9 Allergic rhinitis, unspecified; F41.9 Anxiety disorder, unspecified; R60.0 Localized edema; E11.65 Type 2 diabetes mellitus with hyperglycemia; Z93.3 Colostomy status; Z90.49 Acquired absence of other specified parts of digestive tract; Z98.51 Tubal ligation status; Z98.1 Arthrodesis status; Z68.31 Body mass index [BMI] 31.0-31.9, adult
CPT/HCPCS: 36416; 71045; 71260; 80048; 80053; 85025; 85379; 36415-59; J1650; J1956; J2920; J2930; J7512; Q9967

== ENCOUNTER 2020-09-10 15:00 | Inpatient (IN) | payer MEDICARE ==
[2020-09-10] MEDS ORDERED: metFORMIN 500 MG TAB PO PRN (17:14)
[2020-09-10] MEDS ORDERED: Acetaminophen 325 MG TAB PO PRN (17:14)
[2020-09-10] MEDS ORDERED: HumaLOG 300 UNITS/3 ML VIAL SC PRN ×2 (17:14)
[2020-09-10] MEDS ORDERED: Senokot 8.6 MG TAB PO PRN (17:14)
[2020-09-10] MEDS ORDERED: Benzonatate 100 MG CAP PO PRN (17:14)
[2020-09-10] MEDS ORDERED: Dextrose 5% in Water 1,000 ML IV PRN (18:45)
[2020-09-10] MEDS ORDERED: Dextrose 50% Abboject 50 ML SYRINGE IVP PRN (18:45)
[2020-09-10] MEDS: Mometasone/Formoterol 60 PUFF AER INH SCH (19:00)
[2020-09-10] MEDS: Albuterol 200 PUFF (6.7GM INHALER) INH SCH ×2 (19:30→23:57)
[2020-09-10] MEDS: Famotidine 20 MG TAB PO SCH (20:08)
[2020-09-10] MEDS: Linezolid 600 MG TAB PO SCH (20:08)
[2020-09-10] MEDS: guaiFENesin ER 600 MG TAB PO SCH (20:08)
[2020-09-10] MEDS: ALPRAZolam 0.25 MG TAB PO SCH (20:09)
[2020-09-10] MEDS: Metoprolol Tartrate 25 MG TAB PO SCH (20:09)
[2020-09-10] MEDS: Enoxaparin Sodium 30 MG/0.3 ML SYRINGE SC SCH (20:11)
[2020-09-10] MEDS ORDERED: Famotidine 20 MG TAB PO SCH (21:00)
[2020-09-10] MEDS ORDERED: Enoxaparin Sodium 40 MG/0.4 ML SYRINGE SC SCH (21:00)
--- NOTE | 2020-09-10 21:15 | HP ---
PRIMARY CARE PHYSICIAN: Nurse practitioner, Miley Sales, in [place]. 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 HISTORY OF PRESENT ILLNESS: Ms. Amy Israel is a very pleasant 60-year-old female, who was transferred to [facility] from [facility] on August 27, 2020. The patient initially was hospitalized at [facility] from June 27 to July 08 due to acute on chronic hypoxic respiratory failure and COPD exacerbation. During hospitalization then, patient was COVID-19 negative, but she states upon discharge, the shortness of breath worsening and cough increased. She presented to [facility] on July 25 and was noted to have O2 saturations below 90s and she was started on oxygen then. She was started on IV cefepime and CT scan and angio of the chest did not show any evidence of pulmonary emboli. The patient was tested for COVID-19 again and it came back positive for COVID-19 virus. The patient then received 5 days of remdesivir and she was put on steroids and inflammatory markers improved. Due to worsening shortness of breath, the patient also required increased doses of steroids. She was put on IV Solu-Medrol and this was continued during hospitalization then. Due to severe deconditioning, she was transferred to [facility] and was admitted on August 09, 2020. Patient's condition initially was improving, but by August 23, she had increased shortness of breath, worsening cough, and chest pain, so August 27, 2020, the patient was transferred back to [place] in [facility]. In the emergency room, the patient was significantly short of breath. She was initially able to speak 2- to 3-word sentences. She states she does use a BiPAP at home, but she was using accessory muscles of respiration, so in the ER, she was intubated. She was started on empiric cefepime, vancomycin, and steroids. Chest x-ray done August 27 showed infiltrate in the right middle and lower lung lobe. The patient was subsequently transferred to the ICU. Her blood cultures were negative x2. Troponins were negative and she was able to receive 9 days of IV cefepime, from August 27 to August 31. White blood cell count continued to increase up to 24, so tracheal cultures were done and that grew MRSA, so IV was switched to linezolid and meropenem on September 02. The patient received 7 days of IV linezolid while in the hospital and she was switched over to oral linezolid which she is to continue for 6 more days while here in [place]. Her meropenem was discontinued on September 08. The patient received IV steroids again in the hospital and here steroid was slowly tapered to 20 mg orally which she will continue 3 more days here in [place] in [place]. The patient progressively improved and she was weaned down to her baseline home oxygen of 3 L at rest. Repeat chest x-ray to be done in 6 weeks. Due to recurrent hospitalization, COPD exacerbation, acute respiratory failure, and ICU admission, the patient after extubation was noted to be profoundly weak. She was unable to get up without assistance. She was able unable to move her legs out of the bed and due to these, she was recommended to continue skilled rehabilitation prior to discharge back home. Her steroid is to be tapered for the next 3 days due to significant weakness and possible steroid myopathy due to the long-term use of steroids since June. During hospitalization in [place], patient was also noted to have increased heart rates from 100 to 120s and her metoprolol was decreased to 12.5 p.o. b.i.d. due to her severe COPD symptoms. CT of the chest was done again on September 09 and ruled out PE. She was notified she would need possible outpatient workup with a hold worker. The decision was made to transfer the patient to [facility] for skilled rehabilitation prior to discharge back to her home. Upon evaluation of the patient today, she was in the room with her . She states she feels much better. She is just worried about the significant weakness and unable to move her legs. She denies any chest pain, any palpitations, or dizziness. She denies any diarrhea or any headaches. PAST MEDICAL HISTORY: 1. COPD. 2. Diabetes type 2, on oral hypoglycemic drugs. 3. Depression. 4. Hypertension. 5. Colon rupture with colostomy bag. 6. Hyperlipidemia. 7. PVD. 8. CAD. PAST SURGICAL HISTORY: Colostomy, appendectomy, colon resection, tubal ligation, and cervical fusion of C4 and C5. SOCIAL HISTORY: Patient denies any alcohol use. She is a former tobacco user. Quit about 2 years ago. She denies any illicit drug use. FAMILY HISTORY: The patient reports mother had depression, hypertension, congestive heart failure with COPD. Mother . Father at the age of 62. Had a history of MA and lung cancer. CODE STATUS: The patient is a full code. MEDICATIONS: 1. Zyvox 600 b.i.d. x 6 days 2. Cardizem 15 q.6 p.r.n. for heart rate greater than 110 or SBP greater than 100. 3. Metoprolol tartrate 12.5 mg b.i.d. 4. Prednisone 20 mg p.o. daily x3 days. 5. Metformin 500 p.o. b.i.d. 6. Senna laxative 8.6 p.o. daily p.r.n. 7. Xanax 0.25 p.o. b.i.d. 8. Advair HFA 2 inhalers b.i.d. 9. Tylenol 650 q.4 hours p.r.n. 10. Proventil inhaler 2 puffs q.4 hours p.r.n. 11. Vitamin C 1000 mg daily. 12. Tessalon Perles 100 q.6 p.r.n. 13. Lovenox 40 subcu b.i.d. 14. Pepcid 20 mg b.i.d. 15. Humalog mild sliding scale. 16. Guaifenesin ER 600 p.o. b.i.d. 17. DuoNeb q.4 scheduled and q.2 p.r.n. wheezing, cough, or shortness of breath. 18. Pulmicort 0.5 neb b.i.d. REVIEW OF SYSTEMS: GENERAL: The patient complains of significant weakness. Denies fevers or chills. EYES: Denies eye pain, vision change, conjunctivae inflammation. EAR, NOSE, AND THROAT: Denies ear pain, discharge, mouth sores, nasal congestion. RESPIRATORY: Patient complains of occasional cough and chest tightness with shortness of breath with wheezing. Denies any pleuritic chest pain. CARDIOVASCULAR: Denies chest pain, palpitation, or orthopnea. GASTROINTESTINAL: Denies any nausea, vomiting, abdominal pain, or diarrhea. GENITOURINARY: Denies dysuria, frequency, incontinence, urgency, or hematuria. MUSCULOSKELETAL: The patient complains of weakness to upper and lower extremities. SKIN: Patient complains of multiple bruising to bilateral upper extremities. NEUROLOGICAL: Complains of weakness. PSYCHIATRY: Denies any confusion, seizures, depression, hallucination. PHYSICAL EXAMINATION: VITAL SIGNS: Temperature 98.6, pulse 97, respirations 20, O2 saturation 98% on nasal cannula 3 L. Blood pressure 116/66. GENERAL: The patient is alert, awake, and oriented x3, lying comfortably in bed. HEENT: Normocephalic, atraumatic. Oral mucous membranes are moist. Eyes are nonicteric sclerae. Trachea midline. NECK: Supple and symmetrical. No JVD. RESPIRATORY: Clear to auscultation bilaterally. No wheezing, no rales, no rhonchi. GASTROINTESTINAL: Positive bowel sounds, nontender, nondistended. Patient does have a colostomy bag and stump to her left lower abdomen. EXTREMITIES: No cyanosis, clubbing, or edema. SKIN: Patient does have bruising to bilateral upper extremities and some skin tears. PSYCHIATRY: Normal affect, normal behavior. Alert, awake, and oriented x3. NEUROLOGICAL: Patient does have significant weakness to the upper and lower extremities. Otherwise, cranial nerves 2 through 12 grossly intact. ASSESSMENT: 1. Severe physical deconditioning. 2. Acute hypoxic respiratory failure secondary to MRSA pneumonia and positive chronic obstructive pulmonary disease exacerbation. 3. ICU myopathy. 4. Sinus tachycardia. 5. Hypertension. 6. Leukocytosis. 7. Anemia. 8. Type 2 diabetes. 9. Colostomy bag. 10. No current tobacco use. 11. Chronic obesity. PLAN: The patient is a 60-year-old female, who is being admitted to the [facility] due to severe physical deconditioning secondary to acute hypoxic respiratory failure secondary to MRSA pneumonia, COPD exacerbation, and recent COVID-19 pneumonia. We will consult Physical Therapy and Occupational Therapy to help with gait, balance, ambulation, and strengthening. We will consult Occupational Therapy to help with activities of daily. We will place the patient on sliding scale, mild. We will check Accu-Chek before meals and at bedtime. We will continue Lovenox 40 b.i.d. for DVT prophylaxis and Pepcid b.i.d. for GI prophylaxis. We will monitor the patient closely for any hemodynamic instability. We will taper patient's prednisone off in 3 days. We will stop the linezolid in 6 days per recommendation of ID. The patient to have a repeat chest x-ray in 6 weeks. DISCHARGE DISPOSITION: Back to her home with . ESTIMATED LENGTH OF STAY: 3 to 4 weeks. Estimated time used to prepare and complete this H and P and evaluate the patient is greater than 60 minutes. Job ID: [id number] MTDD
[2020-09-11] MEDS: Acetaminophen 325 MG TAB PO PRN ×2 (00:28→21:13)
[2020-09-11] MEDS: Albuterol 200 PUFF (6.7GM INHALER) INH SCH ×6 (02:59→23:04)
[2020-09-11] MEDS ORDERED: HumaLOG 300 UNITS/3 ML VIAL SC SCH (08:00)
[2020-09-11] MEDS: Mometasone/Formoterol 60 PUFF AER INH SCH ×2 (08:20→19:24)
[2020-09-11] MEDS: Enoxaparin Sodium 30 MG/0.3 ML SYRINGE SC SCH ×2 (08:22→20:25)
[2020-09-11] MEDS: Famotidine 20 MG TAB PO SCH ×2 (08:23→20:26)
[2020-09-11] MEDS: Linezolid 600 MG TAB PO SCH ×2 (08:23→20:28)
[2020-09-11] MEDS: ALPRAZolam 0.25 MG TAB PO SCH (08:23)
[2020-09-11] MEDS: guaiFENesin ER 600 MG TAB PO SCH ×2 (08:24→20:28)
[2020-09-11] MEDS: Ascorbic Acid 500 mg Chewable Tablet PO SCH (08:24)
[2020-09-11] MEDS: Metoprolol Tartrate 25 MG TAB PO SCH ×2 (08:24→20:26)
[2020-09-11] MEDS: predniSONE 20 MG TAB PO SCH (08:25)
[2020-09-11] MEDS ORDERED: Enoxaparin Sodium 30 MG/0.3 ML SYRINGE SC SCH (09:00)
[2020-09-11] MEDS: Senokot S 8.6-50 MG TAB PO PRN (13:27)
[2020-09-11] MEDS: HumaLOG 300 UNITS/3 ML VIAL SC PRN (17:14)
[2020-09-11] MEDS ORDERED: Nystatin Powder 15 GM BOT TOP PRN (17:16)
[2020-09-11] MEDS: ALPRAZolam 0.25 MG TAB PO PRN (20:26)
[2020-09-11] MEDS: Nystatin 500,000 UNITS/5 ML UDCUP SSW SCH (20:28)
[2020-09-12] MEDS: Albuterol 200 PUFF (6.7GM INHALER) INH SCH ×5 (02:49→19:30)
[2020-09-12] MEDS: ALPRAZolam 0.25 MG TAB PO PRN ×3 (02:50→20:04)
[2020-09-12] MEDS: Acetaminophen 325 MG TAB PO PRN ×3 (02:51→20:03)
[2020-09-12] MEDS: Mometasone/Formoterol 60 PUFF AER INH SCH ×2 (08:25→19:31)
[2020-09-12] MEDS: Nystatin 500,000 UNITS/5 ML UDCUP SSW SCH ×4 (08:26→20:06)
[2020-09-12] MEDS: Metoprolol Tartrate 25 MG TAB PO SCH ×2 (08:26→20:04)
[2020-09-12] MEDS: Famotidine 20 MG TAB PO SCH ×2 (08:27→20:04)
[2020-09-12] MEDS: predniSONE 20 MG TAB PO SCH (08:28)
[2020-09-12] MEDS: guaiFENesin ER 600 MG TAB PO SCH ×2 (08:28→20:05)
[2020-09-12] MEDS: Linezolid 600 MG TAB PO SCH ×2 (08:28→20:06)
[2020-09-12] MEDS: Enoxaparin Sodium 30 MG/0.3 ML SYRINGE SC SCH ×2 (08:29→20:05)
[2020-09-12] MEDS: Ascorbic Acid 500 mg Chewable Tablet PO SCH (08:29)
[2020-09-12] MEDS: HumaLOG 300 UNITS/3 ML VIAL SC PRN ×2 (13:20→17:45)
[2020-09-13] MEDS: Albuterol 200 PUFF (6.7GM INHALER) INH SCH ×7 (00:03→23:04)
[2020-09-13] MEDS: ALPRAZolam 0.25 MG TAB PO PRN ×3 (01:26→19:27)
[2020-09-13] MEDS: Acetaminophen 325 MG TAB PO PRN ×4 (01:26→19:27)
[2020-09-13] MEDS: Mometasone/Formoterol 60 PUFF AER INH SCH ×2 (06:03→19:29)
[2020-09-13] MEDS: guaiFENesin ER 600 MG TAB PO SCH ×2 (09:22→20:07)
[2020-09-13] MEDS: Linezolid 600 MG TAB PO SCH ×2 (09:22→20:06)
[2020-09-13] MEDS: predniSONE 20 MG TAB PO SCH (09:22)
[2020-09-13] MEDS: Nystatin 500,000 UNITS/5 ML UDCUP SSW SCH ×4 (09:22→20:06)
[2020-09-13] MEDS: Ascorbic Acid 500 mg Chewable Tablet PO SCH (09:22)
[2020-09-13] MEDS: Metoprolol Tartrate 25 MG TAB PO SCH ×2 (09:23→20:06)
[2020-09-13] MEDS: Famotidine 20 MG TAB PO SCH ×2 (09:23→20:06)
[2020-09-13] MEDS: Enoxaparin Sodium 30 MG/0.3 ML SYRINGE SC SCH (09:27)
[2020-09-13] MEDS: HumaLOG 300 UNITS/3 ML VIAL SC PRN (17:14)
[2020-09-13] MEDS: Enoxaparin Sodium 40 MG/0.4 ML SYRINGE SC SCH (20:07)
[2020-09-14] MEDS: Albuterol 200 PUFF (6.7GM INHALER) INH SCH ×6 (04:02→23:30)
[2020-09-14] MEDS: Famotidine 20 MG TAB PO SCH ×2 (08:27→20:01)
[2020-09-14] MEDS: Ascorbic Acid 500 mg Chewable Tablet PO SCH (08:27)
[2020-09-14] MEDS: Nystatin 500,000 UNITS/5 ML UDCUP SSW SCH ×4 (08:28→22:13)
[2020-09-14] MEDS: guaiFENesin ER 600 MG TAB PO SCH ×2 (08:28→20:02)
[2020-09-14] MEDS: Metoprolol Tartrate 25 MG TAB PO SCH ×2 (08:28→20:02)
[2020-09-14] MEDS: Enoxaparin Sodium 40 MG/0.4 ML SYRINGE SC SCH ×2 (08:28→20:01)
[2020-09-14] MEDS: Linezolid 600 MG TAB PO SCH ×2 (08:28→20:03)
[2020-09-14] MEDS: predniSONE 20 MG TAB PO SCH (08:28)
[2020-09-14] MEDS: Mometasone/Formoterol 60 PUFF AER INH SCH ×2 (08:29→19:29)
[2020-09-14] MEDS: Acetaminophen 325 MG TAB PO PRN ×4 (08:32→20:25)
[2020-09-14] MEDS: ALPRAZolam 0.25 MG TAB PO PRN ×2 (08:33)
[2020-09-14] MEDS: HumaLOG 300 UNITS/3 ML VIAL SC PRN ×2 (12:19→17:16)
[2020-09-14] MEDS: ALPRAZolam 0.5 MG TAB PO PRN (20:03)
[2020-09-14] MEDS: Senokot S 8.6-50 MG TAB PO PRN (21:04)
[2020-09-15] MEDS: Acetaminophen 325 MG TAB PO PRN ×4 (01:19→20:01)
[2020-09-15] MEDS: Albuterol 200 PUFF (6.7GM INHALER) INH SCH ×6 (02:50→23:09)
[2020-09-15] MEDS: Mometasone/Formoterol 60 PUFF AER INH SCH ×2 (06:10→19:11)
[2020-09-15] MEDS: Famotidine 20 MG TAB PO SCH ×2 (09:25→20:01)
[2020-09-15] MEDS: Metoprolol Tartrate 25 MG TAB PO SCH ×2 (09:26→19:57)
[2020-09-15] MEDS: guaiFENesin ER 600 MG TAB PO SCH ×2 (09:26→20:03)
[2020-09-15] MEDS: Nystatin 500,000 UNITS/5 ML UDCUP SSW SCH ×4 (09:26→20:03)
[2020-09-15] MEDS: ALPRAZolam 0.25 MG TAB PO PRN ×2 (09:26→17:04)
[2020-09-15] MEDS: Ascorbic Acid 500 mg Chewable Tablet PO SCH (09:27)
[2020-09-15] MEDS: Enoxaparin Sodium 40 MG/0.4 ML SYRINGE SC SCH ×2 (09:27→20:24)
[2020-09-15] MEDS: Linezolid 600 MG TAB PO SCH ×2 (09:27→20:02)
[2020-09-15] MEDS: ALPRAZolam 0.5 MG TAB PO PRN (20:02)
[2020-09-16] MEDS: Acetaminophen 325 MG TAB PO PRN ×3 (02:47→20:23)
[2020-09-16] MEDS: ALPRAZolam 0.25 MG TAB PO PRN ×2 (02:48→14:00)
[2020-09-16] MEDS: Albuterol 200 PUFF (6.7GM INHALER) INH SCH ×6 (02:52→20:25)
[2020-09-16] MEDS: Mometasone/Formoterol 60 PUFF AER INH SCH ×2 (06:15→20:25)
[2020-09-16] MEDS: Nystatin 500,000 UNITS/5 ML UDCUP SSW SCH ×4 (08:28→20:26)
[2020-09-16] MEDS: Linezolid 600 MG TAB PO SCH ×2 (08:28→20:24)
[2020-09-16] MEDS: guaiFENesin ER 600 MG TAB PO SCH ×2 (08:28→20:24)
[2020-09-16] MEDS: Famotidine 20 MG TAB PO SCH ×2 (08:28→20:24)
[2020-09-16] MEDS: Metoprolol Tartrate 25 MG TAB PO SCH ×2 (08:28→20:24)
[2020-09-16] MEDS: Enoxaparin Sodium 40 MG/0.4 ML SYRINGE SC SCH ×2 (08:29→20:25)
[2020-09-16] MEDS: Ascorbic Acid 500 mg Chewable Tablet PO SCH (08:30)
[2020-09-16] MEDS: ALPRAZolam 0.5 MG TAB PO PRN (21:57)
[2020-09-17] MEDS: Albuterol 200 PUFF (6.7GM INHALER) INH SCH ×7 (00:21→23:17)
[2020-09-17] MEDS: Ascorbic Acid 500 mg Chewable Tablet PO SCH (07:49)
[2020-09-17] MEDS: Nystatin 500,000 UNITS/5 ML UDCUP SSW SCH ×4 (07:52→21:11)
[2020-09-17] MEDS: guaiFENesin ER 600 MG TAB PO SCH ×2 (07:52→21:11)
[2020-09-17] MEDS: Metoprolol Tartrate 25 MG TAB PO SCH ×2 (07:52→21:12)
[2020-09-17] MEDS: Famotidine 20 MG TAB PO SCH ×2 (07:52→21:11)
[2020-09-17] MEDS: Enoxaparin Sodium 40 MG/0.4 ML SYRINGE SC SCH ×2 (07:53→21:10)
[2020-09-17] MEDS: Mometasone/Formoterol 60 PUFF AER INH SCH ×2 (07:53→21:12)
[2020-09-17] MEDS: HumaLOG 300 UNITS/3 ML VIAL SC PRN ×2 (11:45→21:25)
[2020-09-17] MEDS: ALPRAZolam 0.25 MG TAB PO PRN (12:25)
[2020-09-17] MEDS: Acetaminophen 325 MG TAB PO PRN ×2 (12:25→21:16)
[2020-09-17] MEDS ORDERED: Albuterol 200 PUFF (6.7GM INHALER) INH SCH (14:00)
[2020-09-17 14:59] LABS: #Monocytes 0.4 thou/uL (0.11-0.59); #Neutrophils 6.7 thou/uL (1.40-6.50); %Basophils 0.5 % (0.0-1.0); %Lymphocytes 21.9 % (21.0-51.0); %Monocytes 4.6 % (0.0-10.0); Hemoglobin 10.5 g/dL (12.0-16.0); Mean Corpuscular HGB CONC 31.9 g/dL (32.0-36.0); Mean Corpuscular Hemoglobin 29.1 pg (27.0-31.0); Mean Corpuscular Volume 90.9 fL (78.0-98.0); Mean Platelet Volume 7.5 fL (7.4-10.4); Platelet Count 154 thou/uL (130-400); RBC Distribution Width 17.4 % (11.5-14.5); Red Blood Cell (RBC) Count 3.61 mill/uL (4.20-5.40); White Blood Cell (WBC) Count 9.2 thou/uL (4.8-10.8)
[2020-09-17 15:12] LABS: Anion Gap 16 mmol/L (10-20); BUN (Urea Nitrogen) 8 mg/dL (9.8-20.1); Calc. Creatinine Clearance 136 mL/min (70-130); Calcium 8.1 mg/dL (7.8-10.44); Carbon Dioxide 21 mmol/L (22-29); Chloride 101 mmol/L (98-107); Glucose 142 mg/dL (70-105); Potassium 3.5 mmol/L (3.5-5.1); Sodium 134 mmol/L (136-145); Uric Acid 3.9 mg/dL (2.6-6.0)
[2020-09-17] MEDS: ALPRAZolam 0.5 MG TAB PO PRN (21:11)
[2020-09-17] MEDS: Indomethacin 25 mg Capsule PO PRN (21:17)
--- NOTE | 2020-09-17 21:32 | PRG ---
DATE OF SERVICE: 09/17/2020 SUBJECTIVE: The patient was seen and examined at the bedside. No adverse events overnight. She denies any complaints. She states that her breathing is at baseline. She is currently on 3 L of oxygen, which she uses at home. The patient does report sudden onset of right index finger MCP joint pain, swelling and redness. She states she has a history of arthritis, however, she has never experienced this particular type of pain before. OBJECTIVE: VITAL SIGNS: Temperature 98.6, pulse 105, respirations 20, oxygen 99% on 3 L, blood pressure 115/75. GENERAL: The patient is alert and oriented x3, in no distress. She appears to be resting comfortably in bed. HEENT: Normocephalic, atraumatic. Extraocular muscles intact. Moist mucous membranes. LUNGS: Clear to auscultation bilaterally. CARDIOVASCULAR: Regular rate and rhythm. ABDOMEN: Soft, nontender to palpation, nondistended. EXTREMITIES: Normal bulk and tone. NEUROLOGIC: Cranial nerves 2-12 intact grossly. PSYCHIATRIC: Appropriate mood and affect. MUSCULOSKELETAL: Significant tenderness of right 2nd digit MCP joint. Slight increased warmth. Range of motion slightly diminished secondary to pain. ASSESSMENT AND PLAN: 1. Severe physical debility. 2. Status post methicillin-resistant Staphylococcus aureus pneumonia and chronic obstructive pulmonary disease exacerbation. 3. ICU myopathy. 4. Chronic obstructive pulmonary disease with chronic hypoxic respiratory failure on 3 L of oxygen chronically. 5. Hypertension. 6. Morbid obesity. 7. Right 2nd digit joint pain. 8. Diabetes. The patient does not appear to be on any medications chronically for diabetes. Accu-Cheks have been relatively under control. We will continue to monitor. 9. History of anxiety. PLAN: 1. The patient will continue physical therapy, occupational therapy. The patient is requiring quite a bit of assistance. 2. Regarding the patient's new complaint of pain of the right 2nd digit, it does not appear to be infectious in nature. We will check uric acid level as well as CBC and CMP. We will initiate anti-inflammatory treatment. We will try to avoid steroids given patient's history of myopathy and relatively long steroid course recently. 3. Regarding chronic hypoxic respiratory failure, continue supplemental oxygen. The patient does appear to be at her baseline level of functioning. 4. We will continue patient's anxiolytic medication. Also regarding patient's other chronic medical problems, we will continue home medications. 5. Regarding patient's physical debility, we will continue Jacobson to prevent to help prevent skin breakdown and to aid in hygiene. DISPOSITION: Stable. Job ID: [id number]
[2020-09-18] MEDS: Albuterol 200 PUFF (6.7GM INHALER) INH SCH ×6 (02:56→21:17)
[2020-09-18] MEDS: Metoprolol Tartrate 25 MG TAB PO SCH ×2 (08:20→21:09)
[2020-09-18] MEDS: Ascorbic Acid 500 mg Chewable Tablet PO SCH (08:20)
[2020-09-18] MEDS: Famotidine 20 MG TAB PO SCH ×2 (08:20→21:10)
[2020-09-18] MEDS: guaiFENesin ER 600 MG TAB PO SCH ×2 (08:21→21:10)
[2020-09-18] MEDS: Nystatin 500,000 UNITS/5 ML UDCUP SSW SCH ×4 (08:21→21:14)
[2020-09-18] MEDS: Mometasone/Formoterol 60 PUFF AER INH SCH ×2 (08:22→21:11)
[2020-09-18] MEDS: Enoxaparin Sodium 40 MG/0.4 ML SYRINGE SC SCH ×2 (08:23→21:10)
[2020-09-18] MEDS: Indomethacin 25 mg Capsule PO PRN (08:29)
[2020-09-18] MEDS: ALPRAZolam 0.5 MG TAB PO PRN (08:32)
[2020-09-18] MEDS: Acetaminophen 325 MG TAB PO PRN ×2 (10:02→15:54)
[2020-09-18] MEDS: HumaLOG 300 UNITS/3 ML VIAL SC PRN (12:44)
[2020-09-18] MEDS: ALPRAZolam 0.25 MG TAB PO PRN (15:53)
[2020-09-19] MEDS: Metoprolol Tartrate 25 MG TAB PO SCH ×2 (00:01→09:13)
[2020-09-19] MEDS: Indomethacin 25 mg Capsule PO PRN ×3 (00:03→22:27)
[2020-09-19] MEDS: ALPRAZolam 0.5 MG TAB PO PRN ×2 (00:07→22:28)
[2020-09-19] MEDS: Albuterol 200 PUFF (6.7GM INHALER) INH SCH ×6 (02:13→22:20)
[2020-09-19] MEDS: Ascorbic Acid 500 mg Chewable Tablet PO SCH (09:12)
[2020-09-19] MEDS: Famotidine 20 MG TAB PO SCH ×2 (09:13→22:18)
[2020-09-19] MEDS: guaiFENesin ER 600 MG TAB PO SCH ×2 (09:13→22:18)
[2020-09-19] MEDS: Enoxaparin Sodium 40 MG/0.4 ML SYRINGE SC SCH ×2 (09:13→22:18)
[2020-09-19] MEDS: Nystatin 500,000 UNITS/5 ML UDCUP SSW SCH ×4 (09:14→22:19)
[2020-09-19] MEDS: Mometasone/Formoterol 60 PUFF AER INH SCH ×2 (09:14→22:19)
[2020-09-19] MEDS: HumaLOG 300 UNITS/3 ML VIAL SC PRN ×2 (12:26→17:28)
[2020-09-19] MEDS: ALPRAZolam 0.25 MG TAB PO PRN (12:32)
[2020-09-19] MEDS: Acetaminophen 325 MG TAB PO PRN ×2 (12:32→17:31)
[2020-09-20] MEDS: Albuterol 200 PUFF (6.7GM INHALER) INH SCH ×6 (02:55→22:05)
[2020-09-20] MEDS: Famotidine 20 MG TAB PO SCH ×2 (09:09→22:03)
[2020-09-20] MEDS: Enoxaparin Sodium 40 MG/0.4 ML SYRINGE SC SCH ×2 (09:09→22:04)
[2020-09-20] MEDS: ALPRAZolam 0.25 MG TAB PO PRN (09:09)
[2020-09-20] MEDS: Acetaminophen 325 MG TAB PO PRN ×3 (09:10→22:02)
[2020-09-20] MEDS: Indomethacin 25 mg Capsule PO PRN ×2 (09:10→22:03)
[2020-09-20] MEDS: Mometasone/Formoterol 60 PUFF AER INH SCH ×2 (09:11→22:04)
[2020-09-20] MEDS: guaiFENesin ER 600 MG TAB PO SCH ×2 (09:11→22:03)
[2020-09-20] MEDS: Metoprolol Tartrate 25 MG TAB PO SCH ×2 (09:11→22:01)
[2020-09-20] MEDS: Ascorbic Acid 500 mg Chewable Tablet PO SCH (09:11)
[2020-09-20] MEDS: Nystatin 500,000 UNITS/5 ML UDCUP SSW SCH ×4 (09:12→22:03)
[2020-09-20] MEDS: HumaLOG 300 UNITS/3 ML VIAL SC PRN ×2 (17:25→22:03)
[2020-09-20] MEDS: ALPRAZolam 0.5 MG TAB PO PRN (22:01)
[2020-09-21] MEDS: Albuterol 200 PUFF (6.7GM INHALER) INH SCH ×6 (02:22→22:32)
[2020-09-21] MEDS: Famotidine 20 MG TAB PO SCH ×2 (08:58→22:24)
[2020-09-21] MEDS: Nystatin 500,000 UNITS/5 ML UDCUP SSW SCH ×4 (08:58→22:26)
[2020-09-21] MEDS: Ascorbic Acid 500 mg Chewable Tablet PO SCH (08:59)
[2020-09-21] MEDS: Enoxaparin Sodium 40 MG/0.4 ML SYRINGE SC SCH ×2 (08:59→22:07)
[2020-09-21] MEDS: guaiFENesin ER 600 MG TAB PO SCH ×2 (08:59→22:25)
[2020-09-21] MEDS: Metoprolol Tartrate 25 MG TAB PO SCH ×2 (09:46→15:42)
[2020-09-21] MEDS: Mometasone/Formoterol 60 PUFF AER INH SCH ×2 (09:46→22:25)
[2020-09-21 09:50] LABS: #Lymphocytes 1.3 thou/uL (1.20-3.40); #Monocytes 0.7 thou/uL (0.11-0.59); #Neutrophils 4.2 thou/uL (1.40-6.50); %Basophils 0.7 % (0.0-1.0); %Eosinophils 0.2 % (0.0-10.0); %Lymphocytes 20.5 % (21.0-51.0); %Neutrophils 67.6 % (42.0-75.0); Hemoglobin 9.5 g/dL (12.0-16.0); Mean Corpuscular Hemoglobin 29.3 pg (27.0-31.0); Mean Corpuscular Volume 91.6 fL (78.0-98.0); Mean Platelet Volume 8.1 fL (7.4-10.4); Platelet Count 134 thou/uL (130-400); RBC Distribution Width 17.9 % (11.5-14.5); Red Blood Cell (RBC) Count 3.25 mill/uL (4.20-5.40); White Blood Cell (WBC) Count 6.3 thou/uL (4.8-10.8)
[2020-09-21 10:03] LABS: ALT (SGPT) 21 U/L (8-55); AST (SGOT) 12 U/L (5-34); Albumin 2.8 g/dL (3.5-5.0); Alkaline Phosphatase 77 U/L (40-110); Anion Gap 16 mmol/L (10-20); BUN (Urea Nitrogen) 4 mg/dL (9.8-20.1); Bilirubin, Total 0.2 mg/dL (0.2-1.2); Calc. Creatinine Clearance 124 mL/min (70-130); Calcium 8.5 mg/dL (7.8-10.44); Carbon Dioxide 24 mmol/L (22-29); Chloride 104 mmol/L (98-107); Globulin 3.1 g/dL (2.4-3.5); Glucose 200 mg/dL (70-105); Potassium 4.2 mmol/L (3.5-5.1); Protein, Total 5.9 g/dL (6.0-8.3); Sodium 140 mmol/L (136-145)
[2020-09-21 10:20] LABS: Bilirubin Negative (Negative); Blood, Urine Negative (Negative); Clarity Clear (Clear); Glucose, Urine (Dipstick) Negative (Negative); Ketone, Urine Negative (Negative); Leukocyte Trace (Negative); Nitrite Negative (Negative); Protein, Urine (Dipstick) Negative (Neg-Trace); Specific Gravity, Urine 1.015 (1.005-1.030); Urobilinogen 0.2 mg/dL (Less than 2); pH, Urine 6.5 (5.0-9.0)
[2020-09-21 10:23] LABS: Bacteria/HPF Rare-Few HPF (None Seen); RBC/HPF 0-3 HPF (0-3)
[2020-09-21 10:24] LABS: Calcium Oxalate Crystals 1+ HPF (None Seen); Yeast-Budding 1+ HPF (None Seen)
--- NOTE | 2020-09-21 10:41 | RAD ---
EXAM: Chest one view: HISTORY: Low oxygen, elevated heart rate COMPARISON: 09/03/2020 FINDINGS: Heart size: Within normal limits. Lungs: Minimally decreasing right mid lung zone pneumonia from prior study. Probable small pleural effusions. IMPRESSION: Persistent but improving right midlung zone pneumonia. Continued short-term follow-up for clearing.
[2020-09-21] MEDS ORDERED: Sodium Chloride 0.9% 500 ML IV SCH (11:15)
[2020-09-21] MEDS: HumaLOG 300 UNITS/3 ML VIAL SC PRN (11:52)
[2020-09-21] MEDS: Acetaminophen 325 MG TAB PO PRN ×2 (14:29→22:24)
[2020-09-21] MEDS: Indomethacin 25 mg Capsule PO PRN (15:54)
[2020-09-21] MEDS ORDERED: Metoprolol Tartrate 25 MG TAB PO SCH ×2 (16:00→23:00)
[2020-09-21] MEDS: ALPRAZolam 0.25 MG TAB PO PRN (22:25)
[2020-09-22] MEDS: Albuterol 200 PUFF (6.7GM INHALER) INH SCH ×7 (03:20→22:29)
[2020-09-22] MEDS: Mometasone/Formoterol 60 PUFF AER INH SCH ×2 (08:37→22:29)
[2020-09-22] MEDS: guaiFENesin ER 600 MG TAB PO SCH ×2 (08:37→22:03)
[2020-09-22] MEDS: Ascorbic Acid 500 mg Chewable Tablet PO SCH (08:37)
[2020-09-22] MEDS: Metoprolol Tartrate 25 MG TAB PO SCH ×2 (08:37→22:03)
[2020-09-22] MEDS: Enoxaparin Sodium 40 MG/0.4 ML SYRINGE SC SCH ×2 (08:37→22:26)
[2020-09-22] MEDS: Nystatin 500,000 UNITS/5 ML UDCUP SSW SCH ×4 (08:37→22:02)
[2020-09-22] MEDS: Famotidine 20 MG TAB PO SCH ×2 (08:37→22:02)
[2020-09-22] MEDS: ALPRAZolam 0.25 MG TAB PO PRN (08:42)
[2020-09-22] MEDS: Indomethacin 25 mg Capsule PO PRN (08:42)
[2020-09-22] MEDS: HumaLOG 300 UNITS/3 ML VIAL SC PRN (11:57)
[2020-09-22] MEDS: Acetaminophen 325 MG TAB PO PRN ×2 (15:02→22:32)
[2020-09-22] MEDS: ALPRAZolam 0.5 MG TAB PO PRN (22:04)
[2020-09-23] MEDS: Albuterol 200 PUFF (6.7GM INHALER) INH SCH ×6 (03:45→21:12)
[2020-09-23] MEDS ORDERED: Sodium Chloride 0.9% 100 ML BAG ONE (06:42)
[2020-09-23] MEDS: Ascorbic Acid 500 mg Chewable Tablet PO SCH (08:45)
[2020-09-23] MEDS: Nystatin 500,000 UNITS/5 ML UDCUP SSW SCH ×4 (08:46→21:11)
[2020-09-23] MEDS: Famotidine 20 MG TAB PO SCH ×2 (08:46→21:09)
[2020-09-23] MEDS: guaiFENesin ER 600 MG TAB PO SCH ×2 (08:46→21:09)
[2020-09-23] MEDS: Mometasone/Formoterol 60 PUFF AER INH SCH ×2 (08:47→21:12)
[2020-09-23] MEDS: Enoxaparin Sodium 40 MG/0.4 ML SYRINGE SC SCH (08:47)
[2020-09-23] MEDS: Metoprolol Tartrate 25 MG TAB PO SCH ×2 (08:49→21:10)
[2020-09-23] MEDS ORDERED: Iopamidol 370 76% 125 ML VIAL FS ONE (10:51)
[2020-09-23] MEDS ORDERED: Acetaminophen 500 MG TAB PO SCH (11:45)
[2020-09-23 12:04] LABS: #Basophils 0.1 thou/uL (0.0-0.2); #Lymphocytes 2.2 thou/uL (1.20-3.40); #Monocytes 0.9 thou/uL (0.11-0.59); #Neutrophils 8.2 thou/uL (1.40-6.50); %Basophils 0.9 % (0.0-1.0); %Lymphocytes 19.5 % (21.0-51.0); %Monocytes 8.3 % (0.0-10.0); %Neutrophils 71.3 % (42.0-75.0); Hemoglobin 10.9 g/dL (12.0-16.0); Mean Corpuscular HGB CONC 31.5 g/dL (32.0-36.0); Mean Corpuscular Hemoglobin 29.1 pg (27.0-31.0); Mean Corpuscular Volume 92.3 fL (78.0-98.0); Mean Platelet Volume 7.5 fL (7.4-10.4); Platelet Count 329 thou/uL (130-400); Red Blood Cell (RBC) Count 3.73 mill/uL (4.20-5.40); White Blood Cell (WBC) Count 11.4 thou/uL (4.8-10.8)
[2020-09-23 12:18] LABS: ALT (SGPT) 26 U/L (8-55); AST (SGOT) 20 U/L (5-34); Alkaline Phosphatase 101 U/L (40-110); Anion Gap 19 mmol/L (10-20); BUN (Urea Nitrogen) 5 mg/dL (9.8-20.1); Bilirubin, Total 0.2 mg/dL (0.2-1.2); Calc. Creatinine Clearance 122 mL/min (70-130); Calcium 8.9 mg/dL (7.8-10.44); Carbon Dioxide 20 mmol/L (22-29); Chloride 104 mmol/L (98-107); Globulin 3.7 g/dL (2.4-3.5); Glucose 165 mg/dL (70-105); Potassium 5.2 mmol/L (3.5-5.1); Protein, Total 6.7 g/dL (6.0-8.3); Sodium 138 mmol/L (136-145)
--- NOTE | 2020-09-23 14:17 | CT ---
CT arteriogram chest with IV contrast and 3-D imaging HISTORY: Fever. Dyspnea. COMPARISON: 09/09/2020. FINDINGS: There is good contrast opacification of the central pulmonary arteries and thoracic aorta w ith normal branching of the great vessels. Calcification is present throughout the arterial structures. Motion artifact obscures detail of the peripheral pulmonary arteries and, especially the upper abdomen. Peripheral infiltrate at the right posterolateral lung base is slightly smaller and less dense than o n the prior study. Minimal residual fluid. No new areas of airspace consolidation. Lobular, reactive appearing slightly enlarged lymph nodes are present within the subcarinal space of the media stinum. No pneumothorax. IMPRESSION : No evidence of pulmonary embolus. Partial resolution of right lower lobe infiltrate. Minimal residual pleural fluid. Reactive mediastinal lymph nodes.
[2020-09-23] MEDS: Indomethacin 25 mg Capsule PO PRN (14:29)
[2020-09-23] MEDS: Vancomycin HCl 750 MG in Sodium Chloride 0.9% 250 ML 250 ML IVPB SCH (14:30)
[2020-09-23] MEDS: Vancomycin HCl 500 MG in Sodium Chloride 0.9% 100 ML IVPB SCH (14:33)
[2020-09-23] MEDS: ALPRAZolam 0.25 MG TAB PO PRN (14:38)
[2020-09-23 15:01] LABS: Bilirubin Negative (Negative); Blood, Urine Negative (Negative); Clarity Clear (Clear); Glucose, Urine (Dipstick) Negative (Negative); Ketone, Urine Negative (Negative); Leukocyte Negative (Negative); Nitrite Negative (Negative); Protein, Urine (Dipstick) Negative (Neg-Trace); Specific Gravity, Urine 1.015 (1.005-1.030); Urine Culture Reflex No No; Urobilinogen 0.2 mg/dL (Less than 2); pH, Urine 5.5 (5.0-9.0)
[2020-09-23 15:17] LABS: Bacteria/HPF Rare-Few HPF (None Seen); RBC/HPF 0-3 HPF (0-3); Squamous Epithelial 0-3 HPF (0-3)
[2020-09-23] MEDS: Cyclobenzaprine 10 MG TAB PO PRN (15:53)
[2020-09-23] MEDS: Piperacillin/Tazobactam 3.375 GM in Sodium Chloride 0.9% 100 ML IVPB SCH (17:04)
[2020-09-23] MEDS ORDERED: Vancomycin HCl 1.25 GM in Sodium Chloride 0.9% 250 ML 250 ML IVPB SCH (21:00)
[2020-09-23] MEDS ORDERED: Vancomycin HCl 500 MG in Sodium Chloride 0.9% 100 ML IVPB SCH (21:00)
[2020-09-23] MEDS ORDERED: Vancomycin HCl 750 MG in Sodium Chloride 0.9% 250 ML 250 ML IVPB SCH (21:00)
[2020-09-23] MEDS: HumaLOG 300 UNITS/3 ML VIAL SC PRN (21:22)
[2020-09-24] MEDS: Piperacillin/Tazobactam 3.375 GM in Sodium Chloride 0.9% 100 ML IVPB SCH ×5 (00:11→23:56)
[2020-09-24] MEDS: Vancomycin HCl 500 MG in Sodium Chloride 0.9% 100 ML IVPB SCH ×2 (02:50→13:59)
[2020-09-24] MEDS: Vancomycin HCl 750 MG in Sodium Chloride 0.9% 250 ML 250 ML IVPB SCH ×2 (02:50→13:59)
[2020-09-24] MEDS: Albuterol 200 PUFF (6.7GM INHALER) INH SCH ×6 (02:58→21:58)
[2020-09-24] MEDS: Indomethacin 25 mg Capsule PO PRN ×2 (05:49→17:50)
[2020-09-24] MEDS: Cyclobenzaprine 10 MG TAB PO PRN ×2 (05:49→17:51)
[2020-09-24 06:04] LABS: Anion Gap 16 mmol/L (10-20); BUN (Urea Nitrogen) 7 mg/dL (9.8-20.1); Calc. Creatinine Clearance 133 mL/min (70-130); Calcium 8.3 mg/dL (7.8-10.44); Carbon Dioxide 21 mmol/L (22-29); Chloride 107 mmol/L (98-107); Glucose 112 mg/dL (70-105); Sodium 140 mmol/L (136-145)
[2020-09-24] MEDS: Ascorbic Acid 500 mg Chewable Tablet PO SCH (09:24)
[2020-09-24] MEDS: guaiFENesin ER 600 MG TAB PO SCH ×2 (09:26→21:51)
[2020-09-24] MEDS: Metoprolol Tartrate 25 MG TAB PO SCH ×2 (09:26→21:51)
[2020-09-24] MEDS: ALPRAZolam 0.25 MG TAB PO PRN ×2 (09:26→22:06)
[2020-09-24] MEDS: Enoxaparin Sodium 40 MG/0.4 ML SYRINGE SC SCH (09:26)
[2020-09-24] MEDS: Nystatin 500,000 UNITS/5 ML UDCUP SSW SCH ×4 (09:27→21:51)
[2020-09-24] MEDS: Famotidine 20 MG TAB PO SCH ×2 (09:27→21:50)
[2020-09-24] MEDS: Mometasone/Formoterol 60 PUFF AER INH SCH ×2 (09:28→21:51)
[2020-09-24 09:29] LABS: #Lymphocytes 1.2 thou/uL (1.20-3.40); #Monocytes 0.8 thou/uL (0.11-0.59); #Neutrophils 3.9 thou/uL (1.40-6.50); %Basophils 0.7 % (0.0-1.0); %Eosinophils 0.1 % (0.0-10.0); %Lymphocytes 19.9 % (21.0-51.0); %Monocytes 12.9 % (0.0-10.0); %Neutrophils 66.4 % (42.0-75.0); Hemoglobin 8.9 g/dL (12.0-16.0); Mean Corpuscular HGB CONC 30.8 g/dL (32.0-36.0); Mean Corpuscular Hemoglobin 28.4 pg (27.0-31.0); Mean Platelet Volume 6.8 fL (7.4-10.4); Platelet Count 302 thou/uL (130-400); RBC Distribution Width 17.7 % (11.5-14.5); Red Blood Cell (RBC) Count 3.15 mill/uL (4.20-5.40); White Blood Cell (WBC) Count 5.8 thou/uL (4.8-10.8)
[2020-09-24] MEDS: HumaLOG 300 UNITS/3 ML VIAL SC PRN ×3 (12:21→21:52)
[2020-09-24] MEDS: Acetaminophen 325 MG TAB PO PRN ×2 (12:59→21:57)
[2020-09-24] MEDS: Senokot S 8.6-50 MG TAB PO PRN (18:31)
[2020-09-25] MEDS: Vancomycin HCl 500 MG in Sodium Chloride 0.9% 100 ML IVPB SCH ×2 (02:43→15:12)
[2020-09-25] MEDS: Vancomycin HCl 750 MG in Sodium Chloride 0.9% 250 ML 250 ML IVPB SCH ×2 (02:44→15:11)
[2020-09-25] MEDS: Albuterol 200 PUFF (6.7GM INHALER) INH SCH ×6 (02:48→20:35)
[2020-09-25] MEDS: Piperacillin/Tazobactam 3.375 GM in Sodium Chloride 0.9% 100 ML IVPB SCH ×2 (05:35→12:00)
[2020-09-25 06:39] LABS: Anion Gap 15 mmol/L (10-20); BUN (Urea Nitrogen) 6 mg/dL (9.8-20.1); Calc. Creatinine Clearance 136 mL/min (70-130); Carbon Dioxide 22 mmol/L (22-29); Chloride 110 mmol/L (98-107); Glucose 100 mg/dL (70-105); Potassium 4.1 mmol/L (3.5-5.1); Sodium 143 mmol/L (136-145)
[2020-09-25] MEDS: Ascorbic Acid 500 mg Chewable Tablet PO SCH (08:58)
[2020-09-25] MEDS: Famotidine 20 MG TAB PO SCH ×2 (08:58→20:23)
[2020-09-25] MEDS: Acetaminophen 325 MG TAB PO PRN ×2 (08:59→15:33)
[2020-09-25] MEDS: Metoprolol Tartrate 25 MG TAB PO SCH ×2 (08:59→20:24)
[2020-09-25] MEDS: guaiFENesin ER 600 MG TAB PO SCH ×2 (08:59→20:24)
[2020-09-25] MEDS: Nystatin 500,000 UNITS/5 ML UDCUP SSW SCH ×4 (08:59→20:25)
[2020-09-25] MEDS: Indomethacin 25 mg Capsule PO PRN ×2 (09:00→20:26)
[2020-09-25] MEDS: Enoxaparin Sodium 40 MG/0.4 ML SYRINGE SC SCH (09:00)
[2020-09-25] MEDS: ALPRAZolam 0.25 MG TAB PO PRN ×2 (09:00→20:26)
[2020-09-25] MEDS: Mometasone/Formoterol 60 PUFF AER INH SCH ×2 (09:02→20:25)
[2020-09-25] MEDS: HumaLOG 300 UNITS/3 ML VIAL SC PRN (11:59)
[2020-09-25 13:50] LABS: Vancomycin, Trough 31.8 ug/mL
[2020-09-25] MEDS ORDERED: Vancomycin HCl 750 MG in Sodium Chloride 0.9% 250 ML 250 ML IVPB SCH (15:15)
[2020-09-25] MEDS: Cyclobenzaprine 10 MG TAB PO PRN (15:30)
[2020-09-25] MEDS: Senokot S 8.6-50 MG TAB PO PRN (20:26)
[2020-09-25] MEDS: traMADol HCl 50 MG TAB PO PRN (20:27)
[2020-09-26] MEDS ORDERED: Vancomycin HCl 750 MG in Sodium Chloride 0.9% 250 ML 250 ML IVPB SCH (02:00)
[2020-09-26] MEDS: Albuterol 200 PUFF (6.7GM INHALER) INH SCH ×7 (02:27→22:04)
[2020-09-26] MEDS: traMADol HCl 50 MG TAB PO PRN ×2 (04:42→12:49)
[2020-09-26 06:21] LABS: Anion Gap 14 mmol/L (10-20); BUN (Urea Nitrogen) Less than 4 mg/dL (9.8-20.1); Calc. Creatinine Clearance 139 mL/min (70-130); Calcium 8.3 mg/dL (7.8-10.44); Carbon Dioxide 22 mmol/L (22-29); Chloride 107 mmol/L (98-107); Glucose 97 mg/dL (70-105); Potassium 4.3 mmol/L (3.5-5.1); Sodium 139 mmol/L (136-145)
[2020-09-26] MEDS: Enoxaparin Sodium 40 MG/0.4 ML SYRINGE SC SCH (08:22)
[2020-09-26] MEDS: Ascorbic Acid 500 mg Chewable Tablet PO SCH (08:22)
[2020-09-26] MEDS: Nystatin 500,000 UNITS/5 ML UDCUP SSW SCH ×4 (08:22→20:54)
[2020-09-26] MEDS: Metoprolol Tartrate 25 MG TAB PO SCH ×2 (08:23→20:51)
[2020-09-26] MEDS: Acetaminophen 325 MG TAB PO PRN ×2 (08:24→22:01)
[2020-09-26] MEDS: guaiFENesin ER 600 MG TAB PO SCH ×2 (08:25→20:51)
[2020-09-26] MEDS: Famotidine 20 MG TAB PO SCH ×2 (08:25→20:51)
[2020-09-26] MEDS: Mometasone/Formoterol 60 PUFF AER INH SCH ×2 (08:26→20:52)
[2020-09-26] MEDS: ALPRAZolam 0.5 MG TAB PO PRN ×2 (08:42→22:01)
[2020-09-26] MEDS: ALPRAZolam 0.25 MG TAB PO PRN (08:49)
[2020-09-26] MEDS: Senokot S 8.6-50 MG TAB PO PRN (12:30)
[2020-09-26] MEDS: Indomethacin 25 mg Capsule PO PRN (18:18)
[2020-09-26] MEDS: Cyclobenzaprine 10 MG TAB PO PRN (18:18)
[2020-09-27] MEDS: Albuterol 200 PUFF (6.7GM INHALER) INH SCH ×6 (02:56→22:40)
[2020-09-27 05:35] LABS: Anion Gap 12 mmol/L (10-20); BUN (Urea Nitrogen) Less than 4 mg/dL (9.8-20.1); Calc. Creatinine Clearance 133 mL/min (70-130); Calcium 8.2 mg/dL (7.8-10.44); Carbon Dioxide 24 mmol/L (22-29); Chloride 106 mmol/L (98-107); Glucose 83 mg/dL (70-105); Potassium 4.2 mmol/L (3.5-5.1); Sodium 138 mmol/L (136-145)
[2020-09-27] MEDS: Famotidine 20 MG TAB PO SCH ×2 (08:42→21:54)
[2020-09-27] MEDS: Nystatin 500,000 UNITS/5 ML UDCUP SSW SCH ×4 (08:42→21:57)
[2020-09-27] MEDS: Metoprolol Tartrate 25 MG TAB PO SCH ×2 (08:43→21:55)
[2020-09-27] MEDS: ALPRAZolam 0.25 MG TAB PO PRN (08:43)
[2020-09-27] MEDS: Ascorbic Acid 500 mg Chewable Tablet PO SCH (08:43)
[2020-09-27] MEDS: guaiFENesin ER 600 MG TAB PO SCH ×2 (08:44→21:55)
[2020-09-27] MEDS: Acetaminophen 325 MG TAB PO PRN ×2 (08:45→21:56)
[2020-09-27] MEDS: Mometasone/Formoterol 60 PUFF AER INH SCH ×2 (08:46→21:57)
[2020-09-27] MEDS: Enoxaparin Sodium 40 MG/0.4 ML SYRINGE SC SCH (08:50)
[2020-09-27] MEDS: Senokot S 8.6-50 MG TAB PO PRN (13:58)
[2020-09-27] MEDS: traMADol HCl 50 MG TAB PO PRN (13:58)
[2020-09-27] MEDS: Indomethacin 25 mg Capsule PO PRN (17:12)
[2020-09-27] MEDS: ALPRAZolam 0.5 MG TAB PO PRN (21:56)
[2020-09-28] MEDS: Albuterol 200 PUFF (6.7GM INHALER) INH SCH ×6 (01:36→22:00)
[2020-09-28 05:31] LABS: Anion Gap 14 mmol/L (10-20); BUN (Urea Nitrogen) Less than 4 mg/dL (9.8-20.1); Calc. Creatinine Clearance 126 mL/min (70-130); Calcium 8.2 mg/dL (7.8-10.44); Carbon Dioxide 23 mmol/L (22-29); Chloride 105 mmol/L (98-107); Glucose 128 mg/dL (70-105); Potassium 3.8 mmol/L (3.5-5.1); Sodium 138 mmol/L (136-145)
[2020-09-28] MEDS: Famotidine 20 MG TAB PO SCH ×2 (08:58→20:01)
[2020-09-28] MEDS: Nystatin 500,000 UNITS/5 ML UDCUP SSW SCH ×4 (08:58→20:02)
[2020-09-28] MEDS: Ascorbic Acid 500 mg Chewable Tablet PO SCH (08:58)
[2020-09-28] MEDS: Metoprolol Tartrate 25 MG TAB PO SCH ×2 (08:58→20:00)
[2020-09-28] MEDS: Enoxaparin Sodium 40 MG/0.4 ML SYRINGE SC SCH (08:58)
[2020-09-28] MEDS: guaiFENesin ER 600 MG TAB PO SCH ×2 (08:59→20:01)
[2020-09-28] MEDS: ALPRAZolam 0.25 MG TAB PO PRN (08:59)
[2020-09-28] MEDS: Mometasone/Formoterol 60 PUFF AER INH SCH ×2 (08:59→20:01)
[2020-09-28] MEDS: Indomethacin 25 mg Capsule PO PRN (08:59)
[2020-09-28] MEDS: Cyclobenzaprine 10 MG TAB PO PRN (13:11)
[2020-09-28] MEDS: Acetaminophen 325 MG TAB PO PRN ×2 (13:13→21:47)
[2020-09-28] MEDS: traMADol HCl 50 MG TAB PO PRN (16:23)
[2020-09-28] MEDS: HumaLOG 300 UNITS/3 ML VIAL SC PRN (17:06)
[2020-09-28] MEDS: Senokot S 8.6-50 MG TAB PO PRN (20:01)
[2020-09-28] MEDS: ALPRAZolam 0.5 MG TAB PO PRN (21:46)
[2020-09-29] MEDS: Albuterol 200 PUFF (6.7GM INHALER) INH SCH ×6 (02:30→21:24)
[2020-09-29 05:47] LABS: Anion Gap 12 mmol/L (10-20); BUN (Urea Nitrogen) Less than 4 mg/dL (9.8-20.1); Calc. Creatinine Clearance 126 mL/min (70-130); Calcium 8.5 mg/dL (7.8-10.44); Carbon Dioxide 25 mmol/L (22-29); Chloride 107 mmol/L (98-107); Glucose 134 mg/dL (70-105); Potassium 4.1 mmol/L (3.5-5.1); Sodium 140 mmol/L (136-145)
[2020-09-29] MEDS: ALPRAZolam 0.25 MG TAB PO PRN (09:27)
[2020-09-29] MEDS: Nystatin 500,000 UNITS/5 ML UDCUP SSW SCH ×4 (09:27→20:31)
[2020-09-29] MEDS: guaiFENesin ER 600 MG TAB PO SCH ×2 (09:28→20:31)
[2020-09-29] MEDS: Famotidine 20 MG TAB PO SCH ×2 (09:28→20:31)
[2020-09-29] MEDS: Metoprolol Tartrate 25 MG TAB PO SCH ×2 (09:28→20:31)
[2020-09-29] MEDS: Enoxaparin Sodium 40 MG/0.4 ML SYRINGE SC SCH (09:29)
[2020-09-29] MEDS: Ascorbic Acid 500 mg Chewable Tablet PO SCH (09:29)
[2020-09-29] MEDS: Indomethacin 25 mg Capsule PO PRN (09:29)
[2020-09-29] MEDS: Acetaminophen 325 MG TAB PO PRN ×2 (09:29→21:44)
[2020-09-29] MEDS: Mometasone/Formoterol 60 PUFF AER INH SCH ×2 (09:30→20:31)
[2020-09-29] MEDS: traMADol HCl 50 MG TAB PO PRN (15:30)
[2020-09-29] MEDS: Cyclobenzaprine 10 MG TAB PO PRN (18:13)
[2020-09-29] MEDS: HumaLOG 300 UNITS/3 ML VIAL SC PRN (21:02)
[2020-09-29] MEDS: ALPRAZolam 0.5 MG TAB PO PRN (21:43)
[2020-09-30] MEDS: Albuterol 200 PUFF (6.7GM INHALER) INH SCH ×6 (02:26→21:04)
[2020-09-30 05:39] LABS: Anion Gap 13 mmol/L (10-20); BUN (Urea Nitrogen) 4 mg/dL (9.8-20.1); Calc. Creatinine Clearance 133 mL/min (70-130); Calcium 8.6 mg/dL (7.8-10.44); Carbon Dioxide 25 mmol/L (22-29); Chloride 106 mmol/L (98-107); Glucose 89 mg/dL (70-105); Potassium 4.1 mmol/L (3.5-5.1); Sodium 140 mmol/L (136-145)
[2020-09-30] MEDS: Ascorbic Acid 500 mg Chewable Tablet PO SCH (08:45)
[2020-09-30] MEDS: Famotidine 20 MG TAB PO SCH ×2 (08:46→21:01)
[2020-09-30] MEDS: Metoprolol Tartrate 25 MG TAB PO SCH ×2 (08:46→21:01)
[2020-09-30] MEDS: guaiFENesin ER 600 MG TAB PO SCH ×2 (08:46→21:02)
[2020-09-30] MEDS: Nystatin 500,000 UNITS/5 ML UDCUP SSW SCH ×4 (08:46→21:02)
[2020-09-30] MEDS: Mometasone/Formoterol 60 PUFF AER INH SCH ×2 (08:48→21:03)
[2020-09-30] MEDS: Enoxaparin Sodium 40 MG/0.4 ML SYRINGE SC SCH (08:49)
[2020-09-30] MEDS: ALPRAZolam 0.25 MG TAB PO PRN (08:56)
[2020-09-30] MEDS: Acetaminophen 325 MG TAB PO PRN ×2 (08:56→22:40)
[2020-09-30] MEDS: Indomethacin 25 mg Capsule PO PRN (18:03)
[2020-09-30] MEDS: traMADol HCl 50 MG TAB PO PRN (18:03)
[2020-09-30] MEDS: Senokot S 8.6-50 MG TAB PO PRN (21:03)
[2020-09-30] MEDS: ALPRAZolam 0.5 MG TAB PO PRN (22:41)
[2020-10-01] MEDS: Albuterol 200 PUFF (6.7GM INHALER) INH SCH ×6 (01:38→22:16)
[2020-10-01] MEDS: Metoprolol Tartrate 25 MG TAB PO SCH ×2 (08:43→21:04)
[2020-10-01] MEDS: Famotidine 20 MG TAB PO SCH ×2 (08:43→21:06)
[2020-10-01] MEDS: Mometasone/Formoterol 60 PUFF AER INH SCH ×2 (08:45→21:30)
[2020-10-01] MEDS: guaiFENesin ER 600 MG TAB PO SCH ×2 (08:45→21:06)
[2020-10-01] MEDS: Nystatin 500,000 UNITS/5 ML UDCUP SSW SCH ×4 (08:45→21:07)
[2020-10-01] MEDS: Enoxaparin Sodium 40 MG/0.4 ML SYRINGE SC SCH (08:46)
[2020-10-01] MEDS: Ascorbic Acid 500 mg Chewable Tablet PO SCH (08:46)
[2020-10-01] MEDS: ALPRAZolam 0.25 MG TAB PO PRN (08:52)
[2020-10-01] MEDS: Indomethacin 25 mg Capsule PO PRN (08:52)
[2020-10-01] MEDS: traMADol HCl 50 MG TAB PO PRN (11:49)
[2020-10-01] MEDS: Acetaminophen 325 MG TAB PO PRN (15:13)
[2020-10-01] MEDS: Cyclobenzaprine 10 MG TAB PO PRN (15:13)
[2020-10-01] MEDS: Senokot S 8.6-50 MG TAB PO PRN (21:13)
[2020-10-01] MEDS: ALPRAZolam 0.5 MG TAB PO PRN (21:13)
[2020-10-02] MEDS: Albuterol 200 PUFF (6.7GM INHALER) INH SCH ×6 (02:00→21:51)
[2020-10-02] MEDS: guaiFENesin ER 600 MG TAB PO SCH ×2 (08:20→20:52)
[2020-10-02] MEDS: Famotidine 20 MG TAB PO SCH ×2 (08:20→20:50)
[2020-10-02] MEDS: ALPRAZolam 0.25 MG TAB PO PRN (08:20)
[2020-10-02] MEDS: Ascorbic Acid 500 mg Chewable Tablet PO SCH (08:21)
[2020-10-02] MEDS: Metoprolol Tartrate 25 MG TAB PO SCH ×2 (08:21→20:50)
[2020-10-02] MEDS: Enoxaparin Sodium 40 MG/0.4 ML SYRINGE SC SCH (08:22)
[2020-10-02] MEDS: Nystatin 500,000 UNITS/5 ML UDCUP SSW SCH ×4 (08:22→20:56)
[2020-10-02] MEDS: Mometasone/Formoterol 60 PUFF AER INH SCH ×2 (08:22→20:53)
[2020-10-02] MEDS: Indomethacin 25 mg Capsule PO PRN (08:22)
[2020-10-02] MEDS: Ondansetron ODT 4 MG TAB PO PRN (12:27)
[2020-10-02] MEDS: traMADol HCl 50 MG TAB PO PRN (15:49)
[2020-10-02] MEDS: HumaLOG 300 UNITS/3 ML VIAL SC PRN (17:13)
[2020-10-02] MEDS: Cyclobenzaprine 10 MG TAB PO PRN (17:50)
[2020-10-02] MEDS: Acetaminophen 325 MG TAB PO PRN (21:01)
[2020-10-02] MEDS: ALPRAZolam 0.5 MG TAB PO PRN (21:02)
[2020-10-03] MEDS: Albuterol 200 PUFF (6.7GM INHALER) INH SCH ×6 (02:30→21:30)
[2020-10-03] MEDS ORDERED: HumaLOG 300 UNITS/3 ML VIAL SC SCH (07:00)
[2020-10-03] MEDS: Indomethacin 25 mg Capsule PO PRN (09:22)
[2020-10-03] MEDS: Nystatin 500,000 UNITS/5 ML UDCUP SSW SCH ×4 (09:22→21:29)
[2020-10-03] MEDS: Ascorbic Acid 500 mg Chewable Tablet PO SCH (09:23)
[2020-10-03] MEDS: Famotidine 20 MG TAB PO SCH ×2 (09:23→21:29)
[2020-10-03] MEDS: Metoprolol Tartrate 25 MG TAB PO SCH ×2 (09:23→21:29)
[2020-10-03] MEDS: guaiFENesin ER 600 MG TAB PO SCH ×2 (09:23→21:29)
[2020-10-03] MEDS: ALPRAZolam 0.25 MG TAB PO PRN (09:23)
[2020-10-03] MEDS: Mometasone/Formoterol 60 PUFF AER INH SCH ×2 (09:24→21:28)
[2020-10-03] MEDS: Enoxaparin Sodium 40 MG/0.4 ML SYRINGE SC SCH (09:24)
[2020-10-03] MEDS: Acetaminophen 325 MG TAB PO PRN (09:38)
[2020-10-03] MEDS: traMADol HCl 50 MG TAB PO PRN (16:03)
[2020-10-03] MEDS: Ondansetron ODT 4 MG TAB PO PRN (17:24)
[2020-10-03] MEDS: Cyclobenzaprine 10 MG TAB PO PRN (17:42)
[2020-10-03] MEDS: ALPRAZolam 0.5 MG TAB PO PRN (21:29)
[2020-10-03] MEDS: Senokot S 8.6-50 MG TAB PO PRN (21:29)
[2020-10-04] MEDS: traMADol HCl 50 MG TAB PO PRN ×2 (00:54→14:56)
[2020-10-04] MEDS: Albuterol 200 PUFF (6.7GM INHALER) INH SCH ×7 (00:57→22:39)
[2020-10-04] MEDS: Ascorbic Acid 500 mg Chewable Tablet PO SCH (08:08)
[2020-10-04] MEDS: Metoprolol Tartrate 25 MG TAB PO SCH ×2 (08:09→20:35)
[2020-10-04] MEDS: guaiFENesin ER 600 MG TAB PO SCH ×2 (08:09→20:35)
[2020-10-04] MEDS: Enoxaparin Sodium 40 MG/0.4 ML SYRINGE SC SCH (08:10)
[2020-10-04] MEDS: Nystatin 500,000 UNITS/5 ML UDCUP SSW SCH ×4 (08:10→20:37)
[2020-10-04] MEDS: Famotidine 20 MG TAB PO SCH ×2 (08:10→20:36)
[2020-10-04] MEDS: Ondansetron ODT 4 MG TAB PO PRN ×2 (08:18→14:50)
[2020-10-04] MEDS: Acetaminophen 325 MG TAB PO PRN (08:19)
[2020-10-04] MEDS: Mometasone/Formoterol 60 PUFF AER INH SCH ×2 (08:24→20:40)
[2020-10-04] MEDS: Indomethacin 25 mg Capsule PO PRN (12:06)
[2020-10-04 13:03] VITALS: BMI 29.7
[2020-10-04 15:32] LABS: Bilirubin Negative (Negative); Blood, Urine Moderate (Negative); Glucose, Urine (Dipstick) Negative (Negative); Ketone, Urine Negative (Negative); Leukocyte Moderate (Negative); Nitrite Positive (Negative); Protein, Urine (Dipstick) 30 mg/dL (Neg-Trace); Urobilinogen 0.2 mg/dL (Less than 2); pH, Urine 6.5 (5.0-9.0)
[2020-10-04 15:33] LABS: Clarity Cloudy (Clear)
[2020-10-04 15:42] LABS: Bacteria/HPF 2+ HPF (None Seen); Squamous Epithelial 0-3 HPF (0-3); WBC/HPF Greater Than 50 HPF (0-3)
[2020-10-04] MEDS: Phenazopyridine HCl 97.5 MG TABLET PO SCH (18:00)
[2020-10-04] MEDS: Ciprofloxacin 500 MG TAB PO SCH (20:37)
[2020-10-04] MEDS: ALPRAZolam 0.5 MG TAB PO PRN (22:38)
[2020-10-05] MEDS: Albuterol 200 PUFF (6.7GM INHALER) INH SCH ×6 (02:00→21:46)
[2020-10-05] MEDS: Ciprofloxacin 500 MG TAB PO SCH ×2 (05:29→20:35)
[2020-10-05] MEDS: Acetaminophen 325 MG TAB PO PRN (05:34)
[2020-10-05] MEDS: Ascorbic Acid 500 mg Chewable Tablet PO SCH (07:13)
[2020-10-05] MEDS: Ondansetron ODT 4 MG TAB PO PRN ×2 (07:56→16:33)
[2020-10-05] MEDS: Phenazopyridine HCl 97.5 MG TABLET PO SCH ×3 (07:56→17:30)
[2020-10-05] MEDS: Indomethacin 25 mg Capsule PO PRN ×2 (07:56→20:34)
[2020-10-05] MEDS: guaiFENesin ER 600 MG TAB PO SCH ×2 (07:57→20:35)
[2020-10-05] MEDS: Nystatin 500,000 UNITS/5 ML UDCUP SSW SCH ×4 (07:57→21:02)
[2020-10-05] MEDS: Famotidine 20 MG TAB PO SCH ×2 (07:58→20:35)
[2020-10-05] MEDS: Enoxaparin Sodium 40 MG/0.4 ML SYRINGE SC SCH (07:58)
[2020-10-05] MEDS: Mometasone/Formoterol 60 PUFF AER INH SCH ×2 (07:58→21:02)
[2020-10-05] MEDS: Metoprolol Tartrate 25 MG TAB PO SCH ×2 (11:08→16:51)
[2020-10-05] MEDS: Senokot S 8.6-50 MG TAB PO PRN (17:30)
[2020-10-05] MEDS: ALPRAZolam 0.25 MG TAB PO PRN (20:35)
[2020-10-05] MEDS ORDERED: Metoprolol Tartrate 25 MG TAB PO SCH (23:59)
[2020-10-06] MEDS: Albuterol 200 PUFF (6.7GM INHALER) INH SCH ×6 (02:36→22:30)
[2020-10-06] MEDS: Ciprofloxacin 500 MG TAB PO SCH ×2 (05:50→20:27)
[2020-10-06] MEDS: Ascorbic Acid 500 mg Chewable Tablet PO SCH (08:18)
[2020-10-06] MEDS: guaiFENesin ER 600 MG TAB PO SCH ×2 (08:40→20:27)
[2020-10-06] MEDS: Enoxaparin Sodium 40 MG/0.4 ML SYRINGE SC SCH (08:40)
[2020-10-06] MEDS: Metoprolol Tartrate 25 MG TAB PO SCH ×2 (08:40→20:28)
[2020-10-06] MEDS: Phenazopyridine HCl 97.5 MG TABLET PO SCH ×3 (08:40→17:11)
[2020-10-06] MEDS: Nystatin 500,000 UNITS/5 ML UDCUP SSW SCH ×4 (08:40→20:27)
[2020-10-06] MEDS: Famotidine 20 MG TAB PO SCH ×2 (08:40→20:29)
[2020-10-06] MEDS: Mometasone/Formoterol 60 PUFF AER INH SCH ×2 (08:41→20:26)
[2020-10-06] MEDS: Acetaminophen 325 MG TAB PO PRN (08:41)
[2020-10-06] MEDS: Ondansetron ODT 4 MG TAB PO PRN (08:43)
[2020-10-06] MEDS: Indomethacin 25 mg Capsule PO PRN (11:40)
[2020-10-06] MEDS: traMADol HCl 50 MG TAB PO PRN (17:11)
[2020-10-06] MEDS: Senokot S 8.6-50 MG TAB PO PRN (17:11)
[2020-10-07] MEDS: Albuterol 200 PUFF (6.7GM INHALER) INH SCH ×6 (02:00→22:47)
[2020-10-07] MEDS: Ciprofloxacin 500 MG TAB PO SCH ×2 (05:17→20:00)
[2020-10-07] MEDS: Ondansetron ODT 4 MG TAB PO PRN (07:56)
[2020-10-07] MEDS: Mometasone/Formoterol 60 PUFF AER INH SCH ×2 (07:57→22:12)
[2020-10-07] MEDS: Famotidine 20 MG TAB PO SCH ×2 (07:58→22:10)
[2020-10-07] MEDS: Senokot S 8.6-50 MG TAB PO PRN (07:58)
[2020-10-07] MEDS: Indomethacin 25 mg Capsule PO PRN (07:58)
[2020-10-07] MEDS: Nystatin 500,000 UNITS/5 ML UDCUP SSW SCH ×2 (07:58→16:22)
[2020-10-07] MEDS: Metoprolol Tartrate 25 MG TAB PO SCH ×2 (07:59→22:11)
[2020-10-07] MEDS: guaiFENesin ER 600 MG TAB PO SCH ×2 (07:59→22:10)
[2020-10-07] MEDS: Ascorbic Acid 500 mg Chewable Tablet PO SCH (08:00)
[2020-10-07] MEDS: Enoxaparin Sodium 40 MG/0.4 ML SYRINGE SC SCH (08:00)
[2020-10-07] MEDS: ALPRAZolam 0.25 MG TAB PO PRN (09:49)
[2020-10-07] MEDS: traMADol HCl 50 MG TAB PO PRN (17:40)
[2020-10-07] MEDS: Acetaminophen 325 MG TAB PO PRN (22:11)
[2020-10-08] MEDS: Albuterol 200 PUFF (6.7GM INHALER) INH SCH ×6 (03:01→22:33)
[2020-10-08] MEDS: ALPRAZolam 0.5 MG TAB PO PRN ×2 (03:04→20:18)
[2020-10-08] MEDS: Ciprofloxacin 500 MG TAB PO SCH ×2 (05:52→20:23)
[2020-10-08] MEDS: Enoxaparin Sodium 40 MG/0.4 ML SYRINGE SC SCH (09:28)
[2020-10-08] MEDS: Cyclobenzaprine 10 MG TAB PO PRN (09:28)
[2020-10-08] MEDS: Famotidine 20 MG TAB PO SCH ×2 (09:28→20:23)
[2020-10-08] MEDS: ALPRAZolam 0.25 MG TAB PO PRN (09:29)
[2020-10-08] MEDS: Indomethacin 25 mg Capsule PO PRN ×2 (09:29→22:32)
[2020-10-08] MEDS: Metoprolol Tartrate 25 MG TAB PO SCH ×2 (09:29→20:23)
[2020-10-08] MEDS: guaiFENesin ER 600 MG TAB PO SCH ×2 (09:29→20:23)
[2020-10-08] MEDS: Mometasone/Formoterol 60 PUFF AER INH SCH ×2 (09:30→20:24)
[2020-10-08] MEDS: Ascorbic Acid 500 mg Chewable Tablet PO SCH (09:30)
[2020-10-08] MEDS: Ondansetron ODT 4 MG TAB PO PRN (13:22)
[2020-10-08 16:10] LABS: Bilirubin Negative (Negative); Blood, Urine Small (Negative); Glucose, Urine (Dipstick) Negative (Negative); Ketone, Urine Negative (Negative); Leukocyte Large (Negative); Nitrite Positive (Negative); Protein, Urine (Dipstick) Negative (Neg-Trace); Specific Gravity, Urine 1.015 (1.005-1.030); Urobilinogen 0.2 mg/dL (Less than 2)
[2020-10-08 16:11] LABS: Clarity Hazy (Clear)
[2020-10-08 16:17] LABS: Bacteria/HPF Rare-Few HPF (None Seen); RBC/HPF 0-3 HPF (0-3); WBC/HPF Greater Than 50 HPF (0-3)
[2020-10-08] MEDS: Senokot S 8.6-50 MG TAB PO PRN (20:18)
[2020-10-08] MEDS: Acetaminophen 325 MG TAB PO PRN (20:22)
[2020-10-09] MEDS: Albuterol 200 PUFF (6.7GM INHALER) INH SCH ×6 (03:11→21:25)
[2020-10-09] MEDS: Ciprofloxacin 500 MG TAB PO SCH ×2 (05:34→21:04)
[2020-10-09] MEDS: Acetaminophen 325 MG TAB PO PRN ×2 (09:01→17:48)
[2020-10-09] MEDS: Enoxaparin Sodium 40 MG/0.4 ML SYRINGE SC SCH (09:01)
[2020-10-09] MEDS: Famotidine 20 MG TAB PO SCH ×2 (09:01→21:04)
[2020-10-09] MEDS: guaiFENesin ER 600 MG TAB PO SCH ×2 (09:01→21:04)
[2020-10-09] MEDS: ALPRAZolam 0.25 MG TAB PO PRN (09:02)
[2020-10-09] MEDS: Ascorbic Acid 500 mg Chewable Tablet PO SCH (09:02)
[2020-10-09] MEDS: Metoprolol Tartrate 25 MG TAB PO SCH ×2 (09:02→21:04)
[2020-10-09] MEDS: Mometasone/Formoterol 60 PUFF AER INH SCH ×2 (09:03→21:05)
[2020-10-09] MEDS: traMADol HCl 50 MG TAB PO PRN (13:55)
[2020-10-09] MEDS: Cyclobenzaprine 10 MG TAB PO PRN (17:48)
[2020-10-09] MEDS: Senokot S 8.6-50 MG TAB PO PRN (17:52)
[2020-10-09] MEDS: Indomethacin 25 mg Capsule PO PRN (21:07)
[2020-10-09] MEDS: ALPRAZolam 0.5 MG TAB PO PRN (21:08)
[2020-10-10] MEDS: Albuterol 200 PUFF (6.7GM INHALER) INH SCH ×6 (02:39→22:14)
[2020-10-10] MEDS: guaiFENesin ER 600 MG TAB PO SCH ×2 (09:09→22:11)
[2020-10-10] MEDS: Famotidine 20 MG TAB PO SCH ×2 (09:09→22:11)
[2020-10-10] MEDS: Enoxaparin Sodium 40 MG/0.4 ML SYRINGE SC SCH (09:09)
[2020-10-10] MEDS: Metoprolol Tartrate 25 MG TAB PO SCH ×2 (09:09→22:12)
[2020-10-10] MEDS: Mometasone/Formoterol 60 PUFF AER INH SCH ×2 (09:10→22:13)
[2020-10-10] MEDS: Ascorbic Acid 500 mg Chewable Tablet PO SCH (09:10)
[2020-10-10] MEDS: ALPRAZolam 0.25 MG TAB PO PRN (09:16)
[2020-10-10] MEDS: Acetaminophen 325 MG TAB PO PRN (09:16)
[2020-10-10] MEDS ORDERED: Nitrofurantoin Monohyd/M-Cryst 100 MG CAP PO SCH (10:30)
[2020-10-10] MEDS: Senokot S 8.6-50 MG TAB PO PRN (18:26)
[2020-10-10] MEDS: Nitrofurantoin Monohyd/M-Cryst 100 MG CAP PO SCH (22:11)
[2020-10-10] MEDS: ALPRAZolam 0.5 MG TAB PO PRN (22:11)
[2020-10-10] MEDS: Indomethacin 25 mg Capsule PO PRN (22:12)
[2020-10-11] MEDS: Albuterol 200 PUFF (6.7GM INHALER) INH SCH ×3 (02:06→10:14)
[2020-10-11] MEDS: ALPRAZolam 0.25 MG TAB PO PRN (08:10)
[2020-10-11] MEDS: guaiFENesin ER 600 MG TAB PO SCH (08:12)
[2020-10-11] MEDS: Nitrofurantoin Monohyd/M-Cryst 100 MG CAP PO SCH (08:12)
[2020-10-11] MEDS: Metoprolol Tartrate 25 MG TAB PO SCH (08:12)
[2020-10-11] MEDS: Famotidine 20 MG TAB PO SCH (08:13)
[2020-10-11] MEDS: Enoxaparin Sodium 40 MG/0.4 ML SYRINGE SC SCH (08:13)
[2020-10-11] MEDS: Mometasone/Formoterol 60 PUFF AER INH SCH (08:13)
[2020-10-11] MEDS: Ascorbic Acid 500 mg Chewable Tablet PO SCH (08:14)
[2020-10-11] MEDS ORDERED: Polyethylene Glycol 3350 17 GM Packet PO SCH (09:00)
[2020-10-11 09:08] VITALS: BP 115/73; TEMP 97.8
[2020-10-11] MEDS: Indomethacin 25 mg Capsule PO PRN (10:14)
--- NOTE | 2020-10-14 08:17 | DIS ---
DATE OF ADMISSION: 09/10/2020 DATE OF DISCHARGE: 10/11/2020 DISCHARGING PHYSICIAN: Suze Jules MD PRIMARY CARE PHYSICIAN: Nurse practitioner, Miley Sales in [place]. DISCHARGE DIAGNOSES: 1. Physical deconditioning. 2. Acute hypoxic respiratory failure secondary to MRSA pneumonia; chronic obstructive pulmonary disease, advanced; and COVID-19 pneumonia. 3. Sinus tachycardia. 4. Gait instability from possible steroid versus ICU myopathy. 5. Anemia. 6. Hypertension. 7. Possible coronary artery disease. 8. Urinary retention, resolved. 9. Urinary tract infection due to gram-negative rufus, Citrobacter koseri. DISCHARGE MEDICATIONS: 1. Flexeril 10 mg t.i.d. 2. Indomethacin 25 mg b.i.d. p.r.n. 3. Nitrofurantoin 100 mg b.i.d. for 5 days. 4. MiraLAX 1 pack daily. 5. Tramadol 50 q.6 p.r.n. 6. Alprazolam 0.25 mg p.o. b.i.d. p.r.n., 0.5 mg p.o. q.h.s. p.r.n. 7. Tylenol 650 q.4 p.r.n. 8. Proventil 2 puff inhaler q.4 p.r.n. 9. Vitamin C 1000 mg daily. 10. Tessalon Perles q.6 p.r.n. 11. Pepcid 20 mg b.i.d. 12. Advair 2 puffs inhaler b.i.d. 13. Mucinex 600 mg b.i.d. p.r.n. 14. Metoprolol 12.5 mg b.i.d. 15. DuoNeb 3 mL q.4 p.r.n. 16. Nystatin powder b.i.d. topical. 17. Tramadol 50 mg q.6 p.r.n. DISCHARGE INSTRUCTIONS: [facility] to resume physical therapy, occupational therapy, and nursing care. The patient to follow up with PCP within one week. The patient to follow up with the aviation maintenance instructor within two weeks. The patient to eat all meals out of bed. Home health to teach how to use Letha lift for transferring home. CODE STATUS: Full code. DIET: Diabetic diet. ALLERGIES: SULFA, SEVERE ALLERGY. BRIEF HOSPITAL COURSE: Ms. Israel is a 60-year-old female with past medical history of advanced COPD, who uses oxygen at home occasionally, hypertension. The patient had been in and out of the hospital since June 2020 when she initially presented with COPD exacerbation and later subsequently diagnosed with COVID-19 pneumonia. The patient was initially in [facility] from June 27 to due to the COPD exacerbation and acute on chronic respiratory failure. The patient progressively resolved and improved and was discharged home, but she presented back July 25 and was positive for COVID-19. The patient due to this was physically deconditioned. She was treated with five days of remdesivir and steroids, and she progressively improved and was transferred to [facility], August 09. She progressively improved physical condition gonzalez and August 20 her conditioned worsened, and the patient was transferred back to [facility] again, August 27, 2020. The patient was in the ICU. She had to be treated with empiric cefepime, vancomycin, and steroids. She was also noted to have MRSA in the trachea cultures, and IV antibiotic was adjusted. The patient progressively improved again, but was noted to be severely deconditioned, could not move upper or extremities. She was able to be tapered down to oxygen nasal cannula, which was her baseline at home and due to severe deconditioning and myopathy, the patient was transferred back here for skilled rehabilitation on September 10. During rehabilitation here in [place], the patient progressively, but very slowly improved. She was able to move her upper extremities, but the patient was unable to move her lower extremities. The patient also noted to have urinary retention. We required a Jacobson catheter for majority of her stay here in [place]. The patient progressively improved, but she was unable to stand during her physical therapy here in [place]. The patient's hospitalization was complicated by gouty arthritis, and she was started on indomethacin as she could not take steroids, which helped. The patient also had sinus tachycardia throughout her hospitalization, and she had an episode of unknown fever. She had full workup, blood cultures, urine cultures, chest x-rays, and CTA, which were all negative and by the next day, the patient was afebrile and denied any more episodes of fever during hospitalization. The patient, a week prior to discharge, had a Jacobson catheter taken out, but two days after complained of dysuria and a UA and urine culture confirmed urinary tract infection. She was initially treated with Cipro, but she continued to complain of dysuria and urine was repeated, which still continued to show urinary tract infection, so she was started on Macrobid 100 mg b.i.d. The patient progressively improved and dysuria resolved. Due to physical deconditioning, we discussed possible discharge to an assisted living or a senior living with the patient and , and they declined this. The patient stated she had hospital bed, Letha lift, wheelchair, and all necessary equipments at home for her family to be able to take care of her. The patient was subsequently discharged home with family in a stable condition. She was instructed to continue physical therapy with home health as she is still a total assist for transfers and unable to ambulate. DISCHARGE VITAL SIGNS: Temperature 97.8, pulse 97, respirations 22, O2 saturation 95% on 3.5 L nasal cannula, blood pressure 115/73. Estimated length of time used to prepare discharge summary, consult patient, educate family about respiratory status, about deconditioning, gait instability, reassure patient continuation of progress was greater than 55 minutes. Job ID: [id number]
== END 2020-10-11 13:40 | disposition home health service (06) | DRG 177 ==
LOC: MADMS 15:35
PROVIDERS: ADMIT Family Medicine; ATTEND Family Medicine
DX: J15.212 Pneumonia due to Methicillin resistant Staphylococcus aureus (principal); J96.01 Acute respiratory failure with hypoxia; J44.1 Chronic obstructive pulmonary disease with (acute) exacerbation; J44.0 Chronic obstructive pulmonary disease with (acute) lower respiratory infection; R53.81 Other malaise; E11.9 Type 2 diabetes mellitus without complications; E66.01 Morbid (severe) obesity due to excess calories; G72.9 Myopathy, unspecified; I10 Essential (primary) hypertension; F41.9 Anxiety disorder, unspecified; F32.9 Major depressive disorder, single episode, unspecified; E78.5 Hyperlipidemia, unspecified; I73.9 Peripheral vascular disease, unspecified; Z86.16 Personal history of COVID-19; Z93.3 Colostomy status; Z90.49 Acquired absence of other specified parts of digestive tract; Z98.51 Tubal ligation status; Z88.2 Allergy status to sulfonamides; Z68.29 Body mass index [BMI] 29.0-29.9, adult; Z79.84 Long term (current) use of oral hypoglycemic drugs
CPT/HCPCS: 36415; 36416; 71045; 71275; 80048; 80053; 80202; 81001; 83880; 84145; 84484; 84550; 85025; 85652; 87040; 87077; 87086; 87186; 90471; 90732; 94640; 94664; G0009; J1650; J2543; J3370; J3490; J7030; J7050; J7512; J7620; Q0162; Q9967

== ENCOUNTER 2022-05-14 08:20 | Emergency (ER) | payer MEDICARE, OTHER ==
[2022-05-14 09:24] LABS: #Basophils 0.1 thou/uL (0.0-0.2); #Eosinphils 0.1 thou/uL (0.0-0.7); #Lymphocytes 3.8 thou/uL (1.20-3.40); #Monocytes 1.2 thou/uL (0.11-0.59); #Neutrophils 8.5 thou/uL (1.40-6.50); %Basophils 0.8 % (0.0-1.0); %Eosinophils 0.5 % (0.0-10.0); %Monocytes 9.3 % (0.0-10.0); %Neutrophils 62.3 % (42.0-75.0); Mean Corpuscular HGB CONC 26.6 g/dL (32.0-36.0); Mean Corpuscular Hemoglobin 16.8 pg (27.0-31.0); Mean Platelet Volume 7.8 fL (7.4-10.4); Platelet Count 314 thou/uL (130-400); RBC Distribution Width 16.7 % (11.5-14.5); Red Blood Cell (RBC) Count 4.19 mill/uL (4.20-5.40); White Blood Cell (WBC) Count 13.9 thou/uL (4.8-10.8)
[2022-05-14 09:27] LABS: INR-International Normal Ratio 1.1; Prothrombin Time 13.9 sec (12.0-14.7)
[2022-05-14 09:35] LABS: ALT (SGPT) 30 U/L (8-55); AST (SGOT) 19 U/L (5-34); Albumin 3.7 g/dL (3.4-4.8); Alkaline Phosphatase 64 U/L (40-110); Anion Gap 15 mmol/L (10-20); BUN (Urea Nitrogen) 10 mg/dL (9.8-20.1); Bilirubin, Total 0.3 mg/dL (0.2-1.2); Calc. Creatinine Clearance 0 mL/min (70-130); Calcium 9.3 mg/dL (7.8-10.44); Carbon Dioxide 27 mmol/L (23-31); Chloride 100 mmol/L (98-107); Estimated GFR 64; Glucose 108 mg/dL (80-115); Potassium 3.6 mmol/L (3.5-5.1); Protein, Total 6.7 g/dL (5.8-8.1); Sodium 138 mmol/L (136-145)
[2022-05-14 09:41] LABS: Anisocytosis MODERATE=16-30 cells (100X) (0-5/hpf); Hypochromia MODERATE=16-30 cells (100X) (0-5/hpf); Microcytosis MODERATE=15-30 cells (100X) (0-5/hpf); Platelet Morphology Comment Appears Adequate; Poikilocytosis MODERATE=16-30 cells (100X) (0-5/hpf)
== END 2022-05-14 14:40 | disposition home or self-care (01) ==
LOC: MADERS 08:20
DX: D50.9 Iron deficiency anemia, unspecified (principal); I25.10 Atherosclerotic heart disease of native coronary artery without angina pectoris; I50.9 Heart failure, unspecified; J44.9 Chronic obstructive pulmonary disease, unspecified; I73.9 Peripheral vascular disease, unspecified; Z87.891 Personal history of nicotine dependence; Z79.84 Long term (current) use of oral hypoglycemic drugs; Z79.899 Other long term (current) drug therapy
CPT/HCPCS: 36430; 80053; 85025; 85610; 86850; 86900; 86901; 86920; 93005; 99284; P9016; 82274

== ENCOUNTER 2022-05-23 12:44 | Emergency (ER) | payer MEDICARE ==
[2022-05-23] MEDS ORDERED: predniSONE 20 MG TAB ONE (13:17)
== END 2022-05-23 13:49 | disposition home or self-care (01) ==
LOC: MADERS 12:44
DX: J44.1 Chronic obstructive pulmonary disease with (acute) exacerbation (principal); B34.9 Viral infection, unspecified; I50.9 Heart failure, unspecified; I25.10 Atherosclerotic heart disease of native coronary artery without angina pectoris; J44.9 Chronic obstructive pulmonary disease, unspecified; I73.9 Peripheral vascular disease, unspecified; Z87.891 Personal history of nicotine dependence; Z79.84 Long term (current) use of oral hypoglycemic drugs; Z79.899 Other long term (current) drug therapy
CPT/HCPCS: 71045; J7512; J7620

== ENCOUNTER 2022-09-11 15:50 | Emergency (ER) | payer MEDICARE ==
[2022-09-11] MEDS ORDERED: Vancomycin 1 GM VIAL ONE (16:23)
[2022-09-11] MEDS ORDERED: Albuterol Sulfate 2.5 mg/0.5 ml Neb ONE (16:23)
[2022-09-11] MEDS ORDERED: Magnesium 2 GM/50 ML BAG (IN WATER) ONE (16:23)
[2022-09-11] MEDS ORDERED: Sodium Chloride 0.9% 250 ML 250 ML ONE (16:24)
[2022-09-11 16:53] LABS: ALT (SGPT) 31 U/L (8-55); AST (SGOT) 21 U/L (5-34); Albumin 3.5 g/dL (3.4-4.8); Alkaline Phosphatase 80 U/L (40-110); Anion Gap 20 mmol/L (10-20); BUN (Urea Nitrogen) 15 mg/dL (9.8-20.1); Bilirubin, Total 0.8 mg/dL (0.2-1.2); Calc. Creatinine Clearance 0 mL/min (70-130); Calcium 9.2 mg/dL (7.8-10.44); Carbon Dioxide 23 mmol/L (23-31); Chloride 95 mmol/L (98-107); Estimated GFR 55; Glucose 278 mg/dL (80-115); Potassium 4.8 mmol/L (3.5-5.1); Protein, Total 7.5 g/dL (5.8-8.1); Sodium 133 mmol/L (136-145)
[2022-09-11 16:54] LABS: Anisocytosis SLIGHT = 6-15 cells (100X) (0-5/hpf); Band 7 % (5-11); Hemoglobin 10.9 g/dL (12.0-16.0); Lymphocytes 6 % (21-51); MDiff Complete? YES; Mean Corpuscular HGB CONC 29.1 g/dL (32.0-36.0); Mean Corpuscular Hemoglobin 22.2 pg (27.0-31.0); Mean Corpuscular Volume 76.4 fl (78.0-98.0); Mean Platelet Volume 7.2 fL (7.4-10.4); Monocytes 3 % (0-10); Neutrophil 84 % (42-75); Platelet Count 277 10x3/uL (130-400); Platelet Morphology Comment Appears Adequate; Red Blood Cell (RBC) Count 4.91 mill/uL (4.20-5.40); White Blood Cell (WBC) Count 32.4 10x3/uL (4.8-10.8)
[2022-09-11 17:42] LABS: SARS-CoV-2 NAA Rapid Test Not Detected (NotDetected)
[2022-09-11 19:59] LABS: Lactic Acid 2.8 mmol/L (0.5-2.2)
[2022-09-11] MEDS ORDERED: Sodium Chloride 0.9% 1,000 ML ONE (20:21)
== END 2022-09-11 21:03 | disposition short-term general hospital (02) ==
LOC: MADERS 15:50
DX: J96.01 Acute respiratory failure with hypoxia (principal); J18.9 Pneumonia, unspecified organism; J44.1 Chronic obstructive pulmonary disease with (acute) exacerbation; D72.829 Elevated white blood cell count, unspecified; R73.9 Hyperglycemia, unspecified; I25.10 Atherosclerotic heart disease of native coronary artery without angina pectoris; I50.9 Heart failure, unspecified; Z20.822 Contact with and (suspected) exposure to COVID-19; Z87.891 Personal history of nicotine dependence
CPT/HCPCS: 36415; 71045; 71260; 80053; 83605; 83880; 85025; 87040; 93005; 96365; J3370; J3475; J7050; J7611; J7620

== ENCOUNTER 2022-11-22 13:07 | Emergency (ER) | payer MEDICARE ==
[2022-11-22] MEDS ORDERED: Ipratropium/Albuterol 3 ML NEB ONE (13:52)
[2022-11-22] MEDS ORDERED: methylPREDNISolone Sod Succ/PF 125 MG/2 ML VIAL ONE (13:52)
[2022-11-22] MEDS ORDERED: Ketorolac Tromethamine 30 MG/ML VIAL ONE (13:52)
[2022-11-22 14:02] LABS: #Basophils 0.1 thou/uL (0.0-0.2); #Lymphocytes 0.8 thou/uL (1.20-3.40); #Monocytes 0.5 thou/uL (0.11-0.59); #Neutrophils 13.9 thou/uL (1.40-6.50); %Basophils 0.4 % (0.0-1.0); %Eosinophils 0.1 % (0.0-10.0); %Lymphocytes 5.2 % (21.0-51.0); %Monocytes 3.4 % (0.0-10.0); Anisocytosis SLIGHT = 6-15 cells (100X) (0-5/hpf); Hemoglobin 8.7 g/dL (12.0-16.0); Hypochromia SLIGHT = 6-15 cells (100X) (0-5/hpf); MDiff Complete? YES; Mean Corpuscular HGB CONC 29.5 g/dL (32.0-36.0); Mean Platelet Volume 5.9 fL (7.4-10.4); Microcytosis SLIGHT = 6-15 cells (100X) (0-5/hpf); Platelet Count 273 10x3/uL (130-400); Platelet Morphology Comment Appears Adequate; RBC Distribution Width 16.2 % (11.5-14.5); Red Blood Cell (RBC) Count 4.17 mill/uL (4.20-5.40); White Blood Cell (WBC) Count 15.3 10x3/uL (4.8-10.8)
[2022-11-22 14:09] LABS: ALT (SGPT) 31 U/L (8-55); AST (SGOT) 20 U/L (5-34); Albumin 3.5 g/dL (3.4-4.8); Alkaline Phosphatase 83 U/L (40-110); Anion Gap 13 mmol/L (10-20); BUN (Urea Nitrogen) 13 mg/dL (9.8-20.1); Bilirubin, Total 0.3 mg/dL (0.2-1.2); Calc. Creatinine Clearance 0 mL/min (70-130); Calcium 8.8 mg/dL (7.8-10.44); Carbon Dioxide 26 mmol/L (23-31); Chloride 99 mmol/L (98-107); Estimated GFR 72; Glucose 195 mg/dL (80-115); Potassium 4.2 mmol/L (3.5-5.1); Protein, Total 6.5 g/dL (5.8-8.1); Sodium 134 mmol/L (136-145)
[2022-11-22] MEDS ORDERED: Orphenadrine Citrate 60 MG/2 ML VIAL ONE (15:11)
== END 2022-11-22 15:30 | disposition home or self-care (01) ==
LOC: MADERS 13:07
DX: J44.1 Chronic obstructive pulmonary disease with (acute) exacerbation (principal); D64.9 Anemia, unspecified; M54.50 Low back pain, unspecified; D72.829 Elevated white blood cell count, unspecified; I25.10 Atherosclerotic heart disease of native coronary artery without angina pectoris; Z87.891 Personal history of nicotine dependence; Z79.84 Long term (current) use of oral hypoglycemic drugs
CPT/HCPCS: 36415; 71045; 72170; 80053; 85025; 96374; 96375; J1885; J2360; J2930; J7620

== ENCOUNTER 2022-12-08 12:04 | Emergency (ER) | payer MEDICARE ==
[2022-12-08] MEDS ORDERED: Lidocaine 4% Patch ONE (13:18)
[2022-12-08] MEDS ORDERED: Ketorolac Tromethamine 30 MG/ML VIAL ONE (13:18)
[2022-12-08] MEDS ORDERED: Dexamethasone 4 MG TAB ONE (13:18)
[2022-12-08 13:47] LABS: Hemoglobin 7.9 g/dL (12.0-16.0); Mean Corpuscular HGB CONC 28.8 g/dL (32.0-36.0); Mean Corpuscular Hemoglobin 21.2 pg (27.0-31.0); Mean Corpuscular Volume 73.6 fl (78.0-98.0); Mean Platelet Volume 5.2 fL (7.4-10.4); Platelet Count 376 10x3/uL (130-400); RBC Distribution Width 15.7 % (11.5-14.5); Red Blood Cell (RBC) Count 3.73 mill/uL (4.20-5.40); White Blood Cell (WBC) Count 24.4 10x3/uL (4.8-10.8)
[2022-12-08 13:48] LABS: Anisocytosis SLIGHT = 6-15 cells (100X) (0-5/hpf); Band 4 % (5-11); Hypochromia SLIGHT = 6-15 cells (100X) (0-5/hpf); Lymphocytes 4 % (21-51); MDiff Complete? YES; Microcytosis SLIGHT = 6-15 cells (100X) (0-5/hpf); Monocytes 3 % (0-10); Neutrophil 89 % (42-75); Platelet Morphology Comment Appears Adequate
[2022-12-08 13:56] LABS: ALT (SGPT) 21 U/L (8-55); AST (SGOT) 16 U/L (5-34); Albumin 3.8 g/dL (3.4-4.8); Alkaline Phosphatase 94 U/L (40-110); Anion Gap 14 mmol/L (10-20); BUN (Urea Nitrogen) 14 mg/dL (9.8-20.1); Bilirubin, Total 0.3 mg/dL (0.2-1.2); Calc. Creatinine Clearance 0 mL/min (70-130); Calcium 9.5 mg/dL (7.8-10.44); Carbon Dioxide 29 mmol/L (23-31); Chloride 96 mmol/L (98-107); Estimated GFR 64; Globulin 3.3 g/dL (2.4-3.5); Glucose 234 mg/dL (80-115); Potassium 5.1 mmol/L (3.5-5.1); Protein, Total 7.1 g/dL (5.8-8.1); Sodium 134 mmol/L (136-145)
[2022-12-08 14:36] LABS: Bilirubin Negative (Negative); Blood, Urine Negative (Negative); Clarity Clear (Clear); Glucose, Urine (Dipstick) 100 mg/dL (Negative); Ketone, Urine Negative (Negative); Leukocyte Negative (Negative); Nitrite Negative (Negative); Protein, Urine (Dipstick) Negative (Neg-Trace); Specific Gravity, Urine 1.015 (1.005-1.030); Urobilinogen 0.2 mg/dL (Less than 2); pH, Urine 5.5 (5.0-9.0)
== END 2022-12-08 17:00 | disposition home or self-care (01) ==
LOC: MADERS 12:04
DX: M54.40 Lumbago with sciatica, unspecified side (principal); J44.9 Chronic obstructive pulmonary disease, unspecified; R10.11 Right upper quadrant pain; I25.10 Atherosclerotic heart disease of native coronary artery without angina pectoris; I50.9 Heart failure, unspecified; I73.9 Peripheral vascular disease, unspecified; Z87.891 Personal history of nicotine dependence
CPT/HCPCS: 74176; 80053; 81003; 85025; 96374; J1885; J8540

== ENCOUNTER 2022-12-13 15:51 | Emergency (ER) | payer MEDICARE ==
[2022-12-13] MEDS ORDERED: Azithromycin 250 MG TAB ONE (17:00)
[2022-12-13] MEDS ORDERED: HYDROcodone/Acetaminophen 5/325 mg Tablet ONE (17:00)
== END 2022-12-13 17:40 | disposition home or self-care (01) ==
LOC: MADERS 15:51
DX: J44.1 Chronic obstructive pulmonary disease with (acute) exacerbation (principal); M25.551 Pain in right hip; I25.10 Atherosclerotic heart disease of native coronary artery without angina pectoris; I50.9 Heart failure, unspecified; Z87.891 Personal history of nicotine dependence; Z79.899 Other long term (current) drug therapy
CPT/HCPCS: 71045

== ENCOUNTER 2023-01-04 17:32 | Emergency (ER) | payer MEDICARE ==
[2023-01-04 18:37] LABS: #Lymphocytes 0.5 thou/uL (1.20-3.40); #Monocytes 0.5 thou/uL (0.11-0.59); %Basophils 0.3 % (0.0-1.0); %Lymphocytes 4.9 % (21.0-51.0); %Monocytes 4.1 % (0.0-10.0); %Neutrophils 90.7 % (42.0-75.0); Anisocytosis SLIGHT = 6-15 cells (100X) (0-5/hpf); Hemoglobin 7.1 g/dL (12.0-16.0); Hypochromia MODERATE=16-30 cells (100X) (0-5/hpf); MDiff Complete? YES; Mean Corpuscular HGB CONC 28.3 g/dL (32.0-36.0); Mean Corpuscular Hemoglobin 19.3 pg (27.0-31.0); Mean Platelet Volume 7.2 fL (7.4-10.4); Microcytosis SLIGHT = 6-15 cells (100X) (0-5/hpf); Platelet Count 334 10x3/uL (130-400); Platelet Morphology Comment Appears Adequate; RBC Distribution Width 17.5 % (11.5-14.5); Red Blood Cell (RBC) Count 3.69 mill/uL (4.20-5.40)
[2023-01-04 18:41] LABS: ALT (SGPT) 17 U/L (8-55); AST (SGOT) 11 U/L (5-34); Albumin 3.5 g/dL (3.4-4.8); Alkaline Phosphatase 102 U/L (40-110); Anion Gap 16 mmol/L (10-20); BUN (Urea Nitrogen) 19 mg/dL (9.8-20.1); Bilirubin, Total 0.5 mg/dL (0.2-1.2); CK (CPK) 18 U/L (29-168); Calc. Creatinine Clearance 0 mL/min (70-130); Calcium 8.5 mg/dL (7.8-10.44); Carbon Dioxide 25 mmol/L (23-31); Chloride 96 mmol/L (98-107); Estimated GFR 39; Glucose 223 mg/dL (80-115); Magnesium 1.4 mg/dL (1.6-2.6); Potassium 4.1 mmol/L (3.5-5.1); Protein, Total 6.5 g/dL (5.8-8.1); Sodium 133 mmol/L (136-145)
[2023-01-04 18:53] LABS: Bilirubin Small (Negative); Blood, Urine Negative (Negative); Glucose, Urine (Dipstick) Negative (Negative); Ketone, Urine Negative (Negative); Leukocyte Negative (Negative); Nitrite Negative (Negative); Protein, Urine (Dipstick) 30 mg/dL (Neg-Trace); Urobilinogen 0.2 mg/dL (Less than 2); pH, Urine 5.5 (5.0-9.0)
[2023-01-04 18:59] LABS: Clarity Slightly Cloudy (Clear)
[2023-01-04 19:01] LABS: RBC/HPF 0-3 HPF (0-3)
[2023-01-04 19:02] LABS: Bacteria/HPF 2+ HPF (None Seen); Squamous Epithelial Greater than 50 HPF (0-3)
[2023-01-04] MEDS ORDERED: Vancomycin HCl 500 MG VIAL ONE (20:14)
[2023-01-04] MEDS ORDERED: Magnesium 2 GM/50 ML BAG (IN WATER) ONE (20:14)
[2023-01-04] MEDS ORDERED: Cefepime 1 GM VIAL ONE (20:14)
[2023-01-04] MEDS ORDERED: Sodium Chloride 0.9% 100 ML ONE (20:14)
[2023-01-04] MEDS ORDERED: Sodium Chloride 0.9% 500 ML ONE (20:14)
[2023-01-04] MEDS ORDERED: Vancomycin 1 GM VIAL ONE (20:14)
[2023-01-04] MEDS ORDERED: Azithromycin 500 MG VIAL ONE (21:06)
[2023-01-04 22:30] LABS: Amphetamine Not Detected (NotDetected); Barbiturates Screen Not Detected (NotDetected); Benzodiazepine Screen Detected (NotDetected); Cocaine Metabolite Screen Not Detected (NotDetected); Methadone Not Detected (NotDetected); Methamphetamine Not Detected (NotDetected); Opiate Screen Detected (NotDetected); Oxycodone Screen Not Detected (NotDetected); Phencyclidine (PCP) Not Detected (NotDetected); THC/Cannabinoid Screen Not Detected (NotDetected); Tricyclic Screen Detected (NotDetected)
[2023-01-04 22:44] LABS: Base Excess-Venous -2.2 mmol/L (-2.0 to 3.0); Bicarbonate (HCO3v) 24.1 mmol/L (22.0-28.0); Calcium, Ionized 0.98 mmol/L (1.15-1.33); Chloride 98 mmol/L (98-107); Hemoglobin - Calc 9.5 g/dL (12.0-16.0); Potassium 4.2 mmol/L (3.5-5.1); Sodium 132 mmol/L (138-145); T. Carbon Dioxide 25.6 mmol/L (22.0-28.0); vO2 Saturation-calc 40.8 % (60.0-85.0)
== END 2023-01-04 22:52 | disposition short-term general hospital (02) ==
LOC: MADERS 17:32
DX: J18.9 Pneumonia, unspecified organism (principal); E83.42 Hypomagnesemia; N17.9 Acute kidney failure, unspecified; D64.9 Anemia, unspecified; R41.82 Altered mental status, unspecified; I25.10 Atherosclerotic heart disease of native coronary artery without angina pectoris; J44.9 Chronic obstructive pulmonary disease, unspecified; I50.9 Heart failure, unspecified; Z79.899 Other long term (current) drug therapy
CPT/HCPCS: 71045; 80053; 80306; 82330; 82435; 82550; 82803; 83605; 83735; 83880; 84132; 84295; 84484; 85014; 85025; 86850; 86900; 86901; 87040; 93005; J0456; 36415; 81003; 81015; 96365; 96367; 96375; J0692; J3370; J3475; J3490; J7030

== ENCOUNTER 2023-04-25 14:51 | Emergency (ER) | payer MEDICARE ==
[~2023-04-25 14:51] MED LIST changes: +Iopamidol 370 76% 100 ML VIAL ONE; -Iopamidol 370 76% 125 ML VIAL FS ONE; -Sodium Chloride 0.9% 1,000 ML BAG ONE
[2023-04-25] MEDS ORDERED: Sodium Chloride 0.9% 1,000 ML ONE (15:01)
[2023-04-25 15:56] LABS: ALT (SGPT) 7 U/L (8-55); AST (SGOT) 15 U/L (5-34); Albumin 2.8 g/dL (3.4-4.8); Alkaline Phosphatase 121 U/L (40-110); Anion Gap 16 mmol/L (10-20); BUN (Urea Nitrogen) 14 mg/dL (9.8-20.1); Base Excess-Venous -4.8 mmol/L (-2.0 to 3.0); Bicarbonate (HCO3v) 22.5 mmol/L (22.0-28.0); Bilirubin, Total 0.4 mg/dL (0.2-1.2); CO2 Tension (PvCO2) 49.3 mmHg (42.0-51.0); Calc. Creatinine Clearance 0 mL/min (70-130); Calcium 8.3 mg/dL (7.8-10.44); Calcium, Ionized 1.09 mmol/L (1.15-1.33); Carbon Dioxide 21 mmol/L (23-31); Chloride 102 mmol/L (98-107); Chloride 104 mmol/L (98-107); Estimated GFR 33; Glucose 84 mg/dL (80-115); Hemoglobin - Calc 13.4 g/dL (12.0-16.0); Lipase 34 U/L (8-78); Magnesium 1.2 mg/dL (1.6-2.6); Potassium 4.8 mmol/L (3.5-5.1); Potassium 4.9 mmol/L (3.5-5.1); Protein, Total 5.8 g/dL (5.8-8.1); Sodium 133 mmol/L (138-145); Sodium 134 mmol/L (136-145); vO2 Saturation-calc 87.5 % (60.0-85.0)
[2023-04-25 15:57] LABS: Band 6 % (5-11); Hematocrit 33.2 % (36.0-47.0); Hemoglobin 9.9 g/dL (12.0-16.0); Hypochromia SLIGHT = 6-15 cells (100X) (0-5/hpf); Lymphocytes 15 % (21-51); MDiff Complete? YES; Mean Corpuscular HGB CONC 29.7 g/dL (32.0-36.0); Mean Corpuscular Hemoglobin 24.1 pg (27.0-31.0); Mean Platelet Volume 7.3 fL (7.4-10.4); Monocytes 10 % (0-10); Neutrophil 69 % (42-75); Platelet Adequacy Comment Appears Adequate; Platelet Count 329 10x3/uL (130-400); RBC Distribution Width 19.7 % (11.5-14.5); White Blood Cell (WBC) Count 12.4 10x3/uL (4.8-10.8)
[2023-04-25] MEDS ORDERED: Magnesium 2 GM/50 ML BAG (IN WATER) ONE (15:57)
[2023-04-25 16:08] LABS: Bilirubin Negative (Negative); Blood, Urine Negative (Negative); Glucose, Urine (Dipstick) Negative (Negative); Ketone, Urine Negative (Negative); Leukocyte Negative (Negative); Nitrite Negative (Negative); Protein, Urine (Dipstick) Negative (Neg-Trace); Urobilinogen 0.2 mg/dL (Less than 2); pH, Urine 5.5 (5.0-9.0)
[2023-04-25 16:09] LABS: Bacteria/HPF Rare-Few HPF (None Seen); CAUTI Indications for Culture Alt mental st,lethar; Clarity Hazy (Clear); RBC/HPF 0-3 HPF (0-3); Squamous Epithelial 0-3 HPF (0-3); WBC/HPF None Seen HPF (0-3)
[2023-04-25 16:10] LABS: Urine Culture Reflex No No
[2023-04-25 16:13] LABS: SARS-CoV-2 NAA Rapid Test Not Detected (NotDetected)
[2023-04-25] MEDS ORDERED: Cefepime 2 GM VIAL ONE (17:01)
[2023-04-25] MEDS ORDERED: Sodium Chloride 0.9% 100 ML ONE (17:01)
[2023-04-25] MEDS ORDERED: HYDROcodone/Acetaminophen 5/325 mg Tablet ONE (17:25)
[2023-04-25] MEDS ORDERED: Vancomycin 1 GM VIAL ONE (17:34)
[2023-04-25] MEDS ORDERED: Sodium Chloride 0.9% 250 ML 250 ML ONE (17:34)
[2023-04-25 18:08] LABS: Magnesium 1.7 mg/dL (1.6-2.6)
[2023-04-25 18:11] LABS: Troponin I 0.035 ng/mL (< 0.028)
== END 2023-04-25 18:18 | disposition short-term general hospital (02) ==
LOC: MADERS 14:51
DX: A41.9 Sepsis, unspecified organism (principal); N17.9 Acute kidney failure, unspecified; I95.9 Hypotension, unspecified; E83.42 Hypomagnesemia; R00.0 Tachycardia, unspecified; Z87.891 Personal history of nicotine dependence; I25.10 Atherosclerotic heart disease of native coronary artery without angina pectoris; I50.9 Heart failure, unspecified; Z79.899 Other long term (current) drug therapy; Z79.84 Long term (current) use of oral hypoglycemic drugs; Z79.82 Long term (current) use of aspirin
CPT/HCPCS: 36415; 71045; 74177; 80053; 81001; 82330; 82803; 83605; 83690; 83735; 83880; 84484; 85025; 87040; 87086; 93005; 96361; 96365; 96366; 96367; J0692; J3370; J3475; J3490; J7050; Q9967

== ENCOUNTER 2023-09-13 13:19 | Emergency (ER) | payer MEDICARE ==
[2023-09-13 14:32] LABS: ALT (SGPT) Less than 7 U/L (8-55); AST (SGOT) 16 U/L (5-34); Albumin 3.7 g/dL (3.4-4.8); Alkaline Phosphatase 107 U/L (40-110); Anion Gap 19 mmol/L (10-20); BUN (Urea Nitrogen) 10 mg/dL (9.8-20.1); Bilirubin, Total 0.4 mg/dL (0.2-1.2); Calc. Creatinine Clearance 0 mL/min (70-130); Calcium 9.6 mg/dL (7.8-10.44); Carbon Dioxide 24 mmol/L (23-31); Chloride 95 mmol/L (98-107); Estimated GFR 58; Globulin 3.9 g/dL (2.4-3.5); Glucose 127 mg/dL (80-115); Lipase 28 U/L (8-78); Potassium 3.2 mmol/L (3.5-5.1); Protein, Total 7.6 g/dL (5.8-8.1); Sodium 135 mmol/L (136-145); Troponin I 0.013 ng/mL (< 0.028)
[2023-09-13 14:41] LABS: #Basophils 0.1 thou/uL (0.0-0.2); #Eosinphils 0.1 thou/uL (0.0-0.7); #Lymphocytes 1.7 thou/uL (1.20-3.40); #Monocytes 1.1 thou/uL (0.11-0.59); #Neutrophils 6.5 thou/uL (1.40-6.50); %Basophils 1.2 % (0.0-1.0); %Eosinophils 1.1 % (0.0-10.0); %Lymphocytes 18.3 % (21.0-51.0); %Monocytes 11.7 % (0.0-10.0); %Neutrophils 67.8 % (42.0-75.0); Hematocrit 39.2 % (36.0-47.0); Hemoglobin 10.9 g/dL (12.0-16.0); Hypochromia SLIGHT = 6-15 cells (100X) (0-5/hpf); MDiff Complete? YES; Mean Corpuscular HGB CONC 27.8 g/dL (32.0-36.0); Mean Platelet Volume 7.5 fL (7.4-10.4); Microcytosis SLIGHT = 6-15 cells (100X) (0-5/hpf); Platelet Adequacy Comment Appears Adequate; Platelet Count 350 10x3/uL (130-400); RBC Distribution Width 18.6 % (11.5-14.5); Red Blood Cell (RBC) Count 5.44 mill/uL (4.20-5.40); White Blood Cell (WBC) Count 9.5 10x3/uL (4.8-10.8)
[2023-09-13] MEDS ORDERED: Sodium Chloride 0.9% 1,000 ML ONE (14:43)
[2023-09-13] MEDS ORDERED: Ketorolac Tromethamine 30 MG/ML VIAL ONE (14:43)
[2023-09-13] MEDS ORDERED: Ondansetron PF 4 MG/2 ML Vial ONE (14:43)
[2023-09-13 17:12] LABS: Bilirubin Negative (Negative); Blood, Urine Negative (Negative); Glucose, Urine (Dipstick) Negative (Negative); Ketone, Urine Negative (Negative); Leukocyte Negative (Negative); Nitrite Negative (Negative); Protein, Urine (Dipstick) Negative (Neg-Trace); Urobilinogen 0.2 mg/dL (Less than 2); pH, Urine 5.5 (5.0-9.0)
[2023-09-13 17:14] LABS: CAUTI Indications for Culture Pelvic or flank pain; Clarity Hazy (Clear); RBC/HPF 0-3 HPF (0-3)
[2023-09-13 17:15] LABS: Bacteria/HPF 2+ HPF (None Seen)
[2023-09-13 17:16] LABS: Urine Culture Reflex No No
[2023-09-13] MEDS ORDERED: Ketorolac Tromethamine 10 MG TAB ONE (17:39)
[2023-09-13] MEDS ORDERED: Potassium Chloride 20 MEQ TAB ONE (17:39)
== END 2023-09-13 17:47 | disposition home or self-care (01) ==
LOC: MADERS 13:19
DX: S22.081A Stable burst fracture of T11-T12 vertebra, initial encounter for closed fracture (principal); R10.11 Right upper quadrant pain; I50.9 Heart failure, unspecified; J44.9 Chronic obstructive pulmonary disease, unspecified; I25.10 Atherosclerotic heart disease of native coronary artery without angina pectoris; I73.9 Peripheral vascular disease, unspecified; X58.XXXA Exposure to other specified factors, initial encounter; Z87.891 Personal history of nicotine dependence; Z79.899 Other long term (current) drug therapy
CPT/HCPCS: 36415; 74177; 80053; 81001; 83605; 83690; 84484; 85025; 93005; 96374; 96375; J1885; J2405; J7050; Q9967

== ENCOUNTER 2024-09-20 21:32 | Emergency (ER) | payer MEDICARE, OTHER ==
[2024-09-20] MEDS ORDERED: Acetaminophen 500 MG TAB ONE (21:52)
[2024-09-20 22:06] LABS: Hematocrit 33.9 % (36.0-47.0); Hemoglobin 10.3 g/dL (12.0-16.0); Lymphocytes 6 % (21-51); MDiff Complete? YES; Mean Corpuscular HGB CONC 30.3 g/dL (32.0-36.0); Mean Corpuscular Hemoglobin 26.2 pg (27.0-31.0); Mean Corpuscular Volume 86.4 fl (78.0-98.0); Monocytes 1 % (0-10); Neutrophil 93 % (42-75); Platelet Count 240 10x3/uL (130-400); RBC Distribution Width 15.5 % (11.5-14.5); Red Blood Cell (RBC) Count 3.92 mill/uL (4.20-5.40); White Blood Cell (WBC) Count 19.4 10x3/uL (4.8-10.8)
[2024-09-20 22:12] LABS: Base Excess-Venous -3.9 mmol/L (-2.0 to 3.0); Bicarbonate (HCO3v) 20.8 mmol/L (22.0-28.0); CO2 Tension (PvCO2) 36.1 mmHg (42.0-51.0); Calcium, Ionized 1.08 mmol/L (1.15-1.33); Chloride 102 mmol/L (98-107); Hemoglobin - Calc 12.5 g/dL (12.0-16.0); Potassium 3.8 mmol/L (3.5-5.1); Sodium 136 mmol/L (138-145); T. Carbon Dioxide 21.9 mmol/L (22.0-28.0); vO2 Saturation-calc 93.3 % (60.0-85.0)
[2024-09-20 22:14] LABS: ALT (SGPT) Less than 7 U/L (8-55); AST (SGOT) 22 U/L (5-34); Albumin 3.4 g/dL (3.4-4.8); Alkaline Phosphatase 94 U/L (40-110); Anion Gap 15 mmol/L (10-20); BUN (Urea Nitrogen) 11 mg/dL (9.8-20.1); Bilirubin, Total 0.5 mg/dL (0.2-1.2); Calc. Creatinine Clearance 0 mL/min (70-130); Calcium 8.3 mg/dL (7.8-10.44); Carbon Dioxide 20 mmol/L (23-31); Chloride 104 mmol/L (98-107); Estimated GFR 73; Globulin 3.1 g/dL (2.4-3.5); Glucose 235 mg/dL (80-115); Magnesium 1.3 mg/dL (1.6-2.6); Protein, Total 6.5 g/dL (5.8-8.1); Sodium 135 mmol/L (136-145)
[2024-09-20 22:18] LABS: Troponin I 0.013 ng/mL (< 0.028)
[2024-09-20] MEDS ORDERED: Sodium Chloride 0.9% 100 ML ONE (22:37)
[2024-09-20] MEDS ORDERED: Azithromycin 250 MG TAB ONE (22:37)
[2024-09-20] MEDS ORDERED: cefTRIAXone (ROCEPHIN) 2 GM VIAL ONE (22:37)
[2024-09-20] MEDS ORDERED: Oseltamivir 75 MG CAP ONE (22:37)
== END 2024-09-21 00:11 | disposition short-term general hospital (02) ==
LOC: MADERS 21:32
DX: A41.9 Sepsis, unspecified organism (principal); R65.20 Severe sepsis without septic shock; J96.20 Acute and chronic respiratory failure, unspecified whether with hypoxia or hypercapnia; E83.42 Hypomagnesemia; J44.1 Chronic obstructive pulmonary disease with (acute) exacerbation; J11.1 Influenza due to unidentified influenza virus with other respiratory manifestations; E11.9 Type 2 diabetes mellitus without complications; I50.9 Heart failure, unspecified; I25.10 Atherosclerotic heart disease of native coronary artery without angina pectoris; Z87.891 Personal history of nicotine dependence; Z79.02 Long term (current) use of antithrombotics/antiplatelets; Z79.51 Long term (current) use of inhaled steroids; Z79.899 Other long term (current) drug therapy
CPT/HCPCS: 71045; 80053; 82330; 82435; 82803; 83605; 83735; 83880; 84132; 84295; 84484; 85014; 85025; 87040; 87428; 93005; 94760; 96374; 99285; J0696